=== PATIENT | female | born 1970 | race Caucasian/White ===

== ENCOUNTER → 2018-07-03 | Outpatient (CLI) | payer OTHER ==
[~2018-07-03] MED LIST: CLON0.5T13 PO; DOCU100C37 PO; DULO30CA48 PO; FLUO10TA PO; HOLD METFORMIN - RECEIVED CONTRAST 20 ML VIAL IV SCH; HYDR-34 PO; IBUP-1773 PO; IOHEXOL 350 MG/ML 150 ML (OMNIPAQUE 350) VIAL IV ONE; LORA10TA7 PO; METF-397 PO
[2018-07-03 10:28] LABS: BASOPHILS % (AUTO) 0 % (0-10); EOSINOPHILS # (AUTO) 0.1 10^3/uL (0.0-0.3); EOSINOPHILS % (AUTO) 1 % (0-10); HEMATOCRIT 42 % (35-52); HEMOGLOBIN 14.5 G/DL (11.5-16.0); LYMPHOCYTES # (AUTO) 1.4 X 10^3 (1.0-4.0); LYMPHOCYTES % (AUTO) 15 % (12-44); MEAN CORPUSCULAR HEMOGLOBIN 30 PG (25-34); MEAN CORPUSCULAR HGB CONC 35 G/DL (32-36); MEAN CORPUSCULAR VOLUME 86 FL (80-99); MEAN PLATELET VOLUME 11.3 FL (7.4-10.4); MONOCYTES # (AUTO) 0.5 X 10^3 (0.0-1.0); MONOCYTES % (AUTO) 5 % (0-12); NEUTROPHILS # (AUTO) 7.3 X 10^3 (1.8-7.8); NEUTROPHILS % (AUTO) 79 % (42-75); PLATELET COUNT 225 10^3/uL (130-400); RED CELL DISTRIBUTION WIDTH 13.8 % (10.0-14.5); WHITE BLOOD COUNT 9.3 10^3/uL (4.3-11.0)
[2018-07-03 10:43] LABS: BUN/CREATININE RATIO 19; CREATININE SERUM 0.78 MG/DL (0.60-1.30); GFR ESTIMATED > 60
[2018-07-03 11:42] LABS: ABG OXYGEN SATURATION 98 % (94-100); ABG PCO2 38 MMHG (35-45); ABG PH 7.42 (7.37-7.43); ABG PO2 81 MMHG (79-93); ABG TCO2 25.3 MMOL/L (21.0-31.0)
[2018-07-03 11:44] LABS: ALLENS TEST YES-POS; INSPIRED O2 ROOM AIR; PATIENT TEMP 97.2; VENTILATOR NO
--- NOTE | 2018-07-03 12:01 | Diagnostic Imaging Report ---
PROCEDURE: CT angiography of the chest with contrast. TECHNIQUE: Multiple contiguous axial images were obtained through the chest after uneventful bolus administration of intravenous contrast. 2D reconstructed CTA MIP acquisitions were also performed. Auto Exposure Controls were utilized during the CT exam to meet ALARA standards for radiation dose reduction. INDICATION: Dry cough. FINDINGS: There are no intraluminal pulmonary arterial filling defects. There are no findings of pulmonary arterial embolus. The thoracic aorta is patent and nonaneurysmal. There is no pleural or pericardial effusion. No lung mass or focal consolidation. No infiltrate or adenopathy. No chest effusion and no acute chest wall pathology. The visualized upper abdomen appeared nonacute. IMPRESSION: Negative for PE or other acute abnormalities. Dictated by: Dictated on workstation # [id number]
== END ==
LOC: RAD 10:04
PROVIDERS: ATTEND Nurse Practitioner Family
DX: J45.909 Unspecified asthma, uncomplicated (principal)
CPT/HCPCS: 36415; 36600; 71275; 82565; 82805; 84520; 85025

== ENCOUNTER 2018-07-07 08:10 | Emergency (ER) | payer OTHER ==
[~2018-07-07] VITALS: Ht 162.6 cm; Wt 97.5 kg
[~2018-07-07 08:10] MED LIST changes: -HOLD METFORMIN - RECEIVED CONTRAST 20 ML VIAL IV SCH; -IOHEXOL 350 MG/ML 150 ML (OMNIPAQUE 350) VIAL IV ONE
[2018-07-07] MEDS ORDERED: methylPREDNISolone 125 MG (Solu-MEDROL) VIAL IVP ONE (08:15)
[2018-07-07] MEDS ORDERED: RT-ALBUTEROL/IPRATROPIUM 3 ML (DUONEB) VIAL INH ONE (08:15)
[2018-07-07] MEDS ORDERED: MONT10TA24 PO (08:30)
[2018-07-07] MEDS ORDERED: CETI10TA17 PO (08:30)
[2018-07-07] MEDS ORDERED: FLUT16SP22 NS (08:30)
[2018-07-07] MEDS ORDERED: FLUT1BLS INH (08:30)
[2018-07-07] MEDS ORDERED: PRD10T (08:30)
--- NOTE | 2018-07-07 08:37 | ED Respiratory ---
General Chief Complaint: Cough/Cold/Flu Symptoms Stated Complaint: COUGH;SOA;WEAKNESS Source: patient Exam Limitations: no limitations History of Present Illness Date Seen by Provider: Jul 07, 2018 Time Seen by Provider: 08:33 Initial Comments This 47-year-old white female presents with persistent cough, shortness of breath, and weakness. The patient saw her operational intelligence analyst, Dr. Bowling, on Tuesday and was placed on tapering dose of steroids without improvement. The patient had a CT which revealed demonstrated evidence of PE. Patient has had long-standing problems with this persistent cough. Her response to conventional therapy has been somewhat marginal. The patient denies associated fever or chills, nausea vomiting or diarrhea, flank pain or dysuria, hemoptysis, pressure-type chest pain, or diaphoresis. Allergies and Home Medications Allergies Coded Allergies: No Known Drug Allergies (Unverified , 08/11/15) Home Medications Ibuprofen 600 Mg Tablet, 600 MG PO Q6H PRN for PAIN Prescribed by: TRUDY GERARDO on 08/20/15 0857 Loratadine 10 Mg Tablet, 10 MG PO DAILY, (Reported) Patient Home Medication List Home Medication List Reviewed: Yes Review of Systems Review of Systems Constitutional: No chills, No fever EENTM: No hearing loss, No vision loss Respiratory: see HPI, cough, dyspnea on exertion, short of breath Cardiovascular: No chest pain, No palpitations Gastrointestinal: No abdominal pain, No diarrhea, No nausea, No vomiting Genitourinary: No dysuria, No frequency Musculoskeletal: No back pain Skin: No rash Psychiatric/Neurological: No Symptoms Reported Hematologic/Lymphatic: No Symptoms Reported Immunological/Allergic: no symptoms reported Past Qaqeojt-Qgxnbj-Swoguq Hx Past Med/Social Hx: Reviewed Nursing Past Med/Soc Hx Patient Social History Alcohol Use: Denies Use Recreational Drug Use: No Smoking Status: Never a Smoker Recent Foreign Travel: No Contact w/Someone Who Travel: No Past Medical History Surgeries: Yes (c/s x2, ) Respiratory: No Cardiac: No Neurological: No Reproductive Disorders: Yes (menorrhagia) Gastrointestinal: No Musculoskeletal: Yes (leg pain) Endocrine: No Cancer: No Psychosocial: Yes Anxiety, Depression Integumentary: No Blood Disorders: No (anemia at times) Family Medical History Cardiovascular disease grandparents Diabetes mellitus 19 FATHER grandparents FH: cancer 19 MOTHER (eye then went to liver) grandparents (liver, lung) Hypertension grandparents Myocardial infarction grandparents Psychosocial problem G8 SISTER Physical Exam Vital Signs - First Documented 07/07/18 08:12 Temp 98.9 Pulse 88 Resp 20 B/P (MAP) 137/91 (106) Pulse Ox 99 O2 Delivery Room Air Capillary Refill : Height: 5'4.00" Weight: 204lbs. 0.0oz. 92.612585dp; 35.0 BMI Method: General Appearance: WD/WN, mild distress Eyes: Bilateral Eye Normal Inspection Neck: full range of motion, supple, normal inspection Respiratory: wheezing (worse in the upper lobes.) Cardiovascular: regular rate, rhythm, no murmur Gastrointestinal: normal bowel sounds, non tender, soft Extremities: normal range of motion, normal inspection Neurologic/Psychiatric: no motor/sensory deficits, alert, normal mood/affect Skin: normal color, warm/dry Progress/Results/Core Measures Suspected Sepsis SIRS Temperature: Pulse: Respiratory Rate: Laboratory Tests 07/07/18 08:45: White Blood Count 10.1 Blood Pressure / Mean: Laboratory Tests 07/07/18 08:45: Platelet Count 211 Results/Orders Lab Results Laboratory Tests Test 07/07/18 08:45 Range/Units White Blood Count 10.1 4.3-11.0 10^3/uL Red Blood Count 4.86 4.35-5.85 10^6/uL Hemoglobin 14.4 11.5-16.0 G/DL Hematocrit 42 35-52 % Mean Corpuscular Volume 87 80-99 FL Mean Corpuscular Hemoglobin 30 25-34 PG Mean Corpuscular Hemoglobin Concent 34 32-36 G/DL Red Cell Distribution Width 13.7 10.0-14.5 % Platelet Count 211 130-400 10^3/uL Mean Platelet Volume 11.1 H 7.4-10.4 FL Neutrophils (%) (Auto) 85 H 42-75 % Lymphocytes (%) (Auto) 9 L 12-44 % Monocytes (%) (Auto) 6 0-12 % Eosinophils (%) (Auto) 1 0-10 % Basophils (%) (Auto) 0 0-10 % Neutrophils # (Auto) 8.6 H 1.8-7.8 X 10^3 Lymphocytes # (Auto) 0.9 L 1.0-4.0 X 10^3 Monocytes # (Auto) 0.6 0.0-1.0 X 10^3 Eosinophils # (Auto) 0.1 0.0-0.3 10^3/uL Basophils # (Auto) 0.0 0.0-0.1 10^3/uL My Orders Orders - ASHISH ARSHAD MD Albuterol/Ipra Inhalation Soln (Duoneb I (07/07/18 08:15) Methylprednisolone Sod Succ (Solu-Medrol (07/07/18 08:15) Svn Small Volume Nebulizer (07/07/18 08:15) Cbc With Automated Diff (07/07/18 08:16) Chest 1 View, Ap/Pa Only (07/07/18 08:16) Promethazine/ Codeine Syrup (Phenergan W (07/07/18 09:15) Medications Given in ED Current Medications Medications Dose Ordered Sig/Chio Route Start Time Stop Time Status Last Admin Dose Admin Albuterol/ Ipratropium 3 ml ONCE ONCE INH 07/07/18 08:15 07/07/18 08:16 DC 07/07/18 08:24 3 ML Methylprednisolone Sodium Succinate 125 mg ONCE ONCE IVP 07/07/18 08:15 07/07/18 08:16 DC 07/07/18 08:58 125 MG Promethazine HCl/ Codeine 5 ml ONCE ONCE PO 07/07/18 09:15 07/07/18 09:16 DC 07/07/18 09:13 5 ML Vital Signs/I&O 07/07/18 07/07/18 08:12 08:24 Temp 98.9 Pulse 88 Resp 20 B/P (MAP) 137/91 (106) Pulse Ox 99 97 O2 Delivery Room Air Room Air Capillary Refill : Progress Note : Time: 10:47 Progress Note The patient's workup demonstrated unremarkable white count and a chest x-ray that was essentially clear other than increased perihilar markings (asthma). Patient was marginally improved with DuoNeb treatment and 125 mg Solu-Medrol IV. I gave the patient Phenergan with codeine with minimal improvement in her cough. After the arrived I sat and visited with the patient and her about treatment options. Keeping in the hospital with consequent pulmonary toilet is certainly an option. The patient however elected to try increasing her steroids again over the weekend and employing Tussionex every 12 hours to help suppress the cough. I the patient return tomorrow if she was not significantly improved. I should follow-up with Dr. Bowling on Tuesday for further evaluation and care. Departure Impression Primary Impression: Asthma attack Qualified Codes: J45.51 - Severe persistent asthma with (acute) exacerbation Disposition: HOME, SELF-CARE Condition: Improved Departure-Patient Inst. Decision time for Depature: 10:53 [facility] Primary Care Physician ALEJANDRO DIAS (Family) Primary Care Physician INÉS BOWLING DO Patient Instructions: Asthma, Adult (DC) Add. Discharge Instructions: Tussionex and prednisone as prescribed. Close follow-up with Dr. Bowling on Tuesday. Return if any problems or questions. All discharge instructions reviewed with patient and/or family. Voiced understanding. ASHISH ARSHAD MD Jul 07, 2018 08:37
[2018-07-07 09:00] LABS: BASOPHILS % (AUTO) 0 % (0-10); EOSINOPHILS # (AUTO) 0.1 10^3/uL (0.0-0.3); EOSINOPHILS % (AUTO) 1 % (0-10); HEMATOCRIT 42 % (35-52); HEMOGLOBIN 14.4 G/DL (11.5-16.0); LYMPHOCYTES # (AUTO) 0.9 X 10^3 (1.0-4.0); LYMPHOCYTES % (AUTO) 9 % (12-44); MEAN CORPUSCULAR HEMOGLOBIN 30 PG (25-34); MEAN CORPUSCULAR HGB CONC 34 G/DL (32-36); MEAN CORPUSCULAR VOLUME 87 FL (80-99); MEAN PLATELET VOLUME 11.1 FL (7.4-10.4); MONOCYTES # (AUTO) 0.6 X 10^3 (0.0-1.0); MONOCYTES % (AUTO) 6 % (0-12); NEUTROPHILS # (AUTO) 8.6 X 10^3 (1.8-7.8); NEUTROPHILS % (AUTO) 85 % (42-75); PLATELET COUNT 211 10^3/uL (130-400); RED CELL DISTRIBUTION WIDTH 13.7 % (10.0-14.5); WHITE BLOOD COUNT 10.1 10^3/uL (4.3-11.0)
[2018-07-07] MEDS ORDERED: PROMETHAZINE/ CODEINE SYRUP 5 ML UDC PO ONE (09:15)
--- NOTE | 2018-07-07 10:49 | Diagnostic Imaging Report ---
INDICATION: Cough No prior examinations are available for comparison. FINDINGS: The heart size, mediastinal configuration, and pulmonary vascularity are within normal limits. There is no pleural effusion, pneumothorax, or pneumonia. The osseous structures are unremarkable. IMPRESSION: No acute cardiopulmonary abnormality. Dictated by: Dictated on workstation # [id number]
[2018-07-07 10:57] VITALS: BP 122/75
--- OUTSIDE RECORDS SUMMARY | 2018-07-07 13:34 | XMS REPORT ---
Author Author CHRIS EVANS [facility] Address [address] [place] [address] Care Team Providers Care Software Specialist Name Role Phone CHRIS EVANS Unavailable PROBLEMS Type Condition ICD9-CM Code EGT95-NA Code Onset Dates Condition Status SNOMED Code Problem Emotional lability R45.86 Active 22566048 Problem History of abnormal cervical Pap smear Z87.898 Active 370219202 Problem Breast cancer screening Z12.31 Active 147688327 Problem Shortness of breath R06.02 Active 400368731 Problem Iron deficiency anemia due to chronic blood loss D50.0 Active 36839653 Problem History of asthma Z87.09 Active 387994040 Problem Dysthymia F34.1 Active 48443091 Problem Hyperglycemia R73.9 Active 31799561 Problem Venous insufficiency I87.2 Active 81872199 Problem Colon cancer screening Z12.11 Active 114933389 Problem Obesity (BMI 35.0-39.9 without comorbidity) E66.9 Active 362909079 Problem Menorrhagia with regular cycle N92.0 Active 990798275 Problem Anxiety disorder, unspecified F41.9 Active 791630761 Problem B union_ , 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 189479380 Problem Hyperthyroidism E05.90 Active 31172001 Problem Sleep disturbance G47.9 Active 89580339 Problem Anxiety F41.9 Active 36524348 Problem Depression with anxiety F41.8 Active 136362546 Problem Lumbago with sciatica, left side M54.42 Active 511946525 Problem Persistent mood [affective] disorder, unspecified F34.9 Active 70177533 Problem High risk medication use Z79.899 Active 389133449 Problem Other chronic pain G89.29 Active 62257370 Problem Anxiety associated with depression F41.8 Active 149551053 ALLERGIES No Information ENCOUNTERS Encounter Location Date Diagnosis [facility] [address] [facility] [id number] [id number] Dec, History of asthma Z87.09 and Shortness of breath R06.02 [facility] [address] [id number][place] [id number] Oct, History of asthma Z87.09 and Bronchitis J40 [address] [id number], [place] [id number] July, Bronchiolitis J21.9 ; Acute non-recurrent maxillary sinusitis J01.00 and Cough R05 [facility] [address] [id number] [id number] July, Bronchiolitis J21.9 [facility] [address] AVCullman [facility] [id number] [place] [id number] Apr, Influenza J11.1 [facility] [place]65100[place] [id number] Jan, [facility]65100[place] [id number] Jan, Venous insufficiency I87.2 and Obesity (BMI 35.0-39.9 without comorbidity) E66.9 [facility] [id number] [id number] Dec, High risk medication use Z79.899 ; Hyperglycemia R73.9 ; Hyperthyroidism E05.90 ; Iron deficiency anemia due to chronic blood loss D50.0 and Menorrhagia with regular cycle N92.0 [facility] [id number][place] [id number] Nov, [facility] [id number][place] [id number] Nov, [facility] [id number] [place] [id number] Nov, High risk medication use Z79.899 ; Dysthymia F34.1 and Venous insufficiency I87.2 [facility] [employer] [place] [address] [id number] [place] [id number] Sep, [facility] [address] [id number], [place] [id number] Sep, History of abnormal cervical Pap smear Z87.898 ; Breast cancer screening Z12.31 and Colon cancer screening Z12.11 zz[facility] [place] [id number] [facility] [id number] [place] [id number] Jun, [facility] [address] [id number], [place] [id number] Apr, [facility] [address] [id number], [place] [id number] Apr, High risk medication use Z79.899 ; Dysthymia F34.1 and Hyperglycemia R73.[address] [facility] [address] [id number], [place] [id number] Feb, [facility] [address] [id number], [place] [id number] Feb, Anxiety associated with depression F41.8 [facility] [address] [id number], [place] [id number] Feb, [facility] [address] [id number], [place] [id number] Jan, [facility] [address] [id number], [place] [id number] Jan, [facility] [address] [id number], [place] [id number] Jan, High risk medication use Z79.899 and Anxiety associated with depression F41.8 [facility] [address] [id number], [place] [id number] Jan, Anxiety F41.[address] [facility] [address] [id number], [place] [id number] Dec, Emotional lability R45.[address] [facility] [address] [id number], [place] [id number] Dec, Anxiety F41.[address] [facility] [address] [id number] [place] [id number] Dec, [facility] [address] [id number] [place] [id number] Dec, Anxiety associated with depression F41.[address] [facility] [address] [id number] [place] [id number] Dec, [facility] [address] [id number], [place] [id number] Dec, Persistent mood [affective] disorder, unspecified F34.[address] [facility] [address] [id number] [place] [id number] Nov, Hyperthyroidism E05.[address] [facility] [address] [id number], [place] [id number] Nov, Hyperthyroidism E05.[address] [facility] [address] [id number], [place] [id number] Nov, [facility] [address] [id number], [place] [address] Nov, Hyperglycemia R73.9 ; Lumbago with sciatica, left side M54.42 ; Other chronic pain G89.29 and B union_ , 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 [facility] [address] [id number], [place] [id number] Nov, Depression with anxiety F41.8 [facility] [address] [id number], [place] [id number] Oct, High risk medication use Z79.899 ; Dysthymia F34.1 and Venous insufficiency I87.[address] [facility] [address] [id number], [place] [id number] Oct, Anxiety F41.9 [facility] [address] [id number], [place] [id number] Oct, [facility] [address] [address] [id number], [place] [id number] Sep, Iron deficiency anemia due to chronic blood loss D50.0 [facility] [place] [address] [facility] [address] [id number], [place] [id number] Sep, High risk medication use Z79.899 and Sleep disturbance G47.9 [facility] [place] [address] [facility] [address] [id number], [place] [id number] Sep, Anxiety disorder, unspecified F41.9 [facility] [address] [id number], [place] [id number] Aug, [facility] [address] [id number], [place] [id number] Aug, Iron deficiency anemia due to chronic blood loss D50.0 and Hyperthyroidism E05.90 [facility] [place] [address] [facility] [address] [id number], [place] [id number] Aug, Hyperthyroidism E05.90 [facility] [place] [address] [facility] [address] [id number], [place] [id number] Aug, Hyperglycemia R73.9 [facility] [place] [address] [place] [address] AVE [id number], [place] [id number] Aug, High risk medication use Z79.899 ; Dysthymia F34.1 and Hyperglycemia R73.9 [facility] [address]00565100[place] [id number] Jun, [facility] [place] [id number] [place] [id number] May, Menorrhagia with regular cycle N92.0 ; Dysmenorrhea N94.6 and Tendonitis M77.9 [facility] [address] [place] [address] [id number] May, Blood glucose elevated R73.9 [facility] [place] [address] [id number] [place] [id number] May, [facility] [address] [place] [address] [id number] May, Menorrhagia with regular cycle N92.0 and Dysmenorrhea N94.6 [facility] [id number] [place] [id number] 25 Apr, 2015 Painful menstrual periods N94.6 ; Menorrhagia with regular cycle N92.0 and Depression with anxiety F41.8 [facility] [id number] [place]ACH[place] [id number] Apr, [place] [id number] [place] [id number] Feb, Plantar wart B07.0 [address] [place] [address] [id number] Feb, [place] [id number] [place] [address] [phone] Feb, Blood glucose elevated R73.9 and Lumbar radiculopathy M54.[address] [place] [address] [id number] Feb, Low grade squamous intraepithelial lesion (LGSIL) on Papanicolaou smear of cervix R87.[address] [place] [address] [id number] Feb, [facility] [place] [address] [facility] [address] [id number], [place] [id number] Jan, [facility] [id number] [place] [id number] Jan, [address] [place] [address] [id number] Jan, [place] [id number] [place] [id number] Jan, Routine gynecological examination V72.31 ; Encounter for Papanicolaou smear for cervical cancer screening Z12.4 and Breast cancer screening Z12.39 [address] [place] [address] [id number] Jan, Depression with anxiety F41.8 [address] [place] [address] [id number] Dec, Follow up V67.9 [place] [id number] [id number] Oct, Follow up V67.9 [facility] [address] [facility] [id number] [place] [id number] Sep, Major depression, recurrent 296.30 [facility] [address] [facility] [id number] [place] [address] Jun, [facility] [address]00565100[place] [address] Jun, [facility] [id number] [place] [id number] Feb, [facility] [address] [place] [address] Feb, [facility] [id number] [place]ACH[place] [id number] Jan, [facility] [address]00565100[place] [address] Jan, [facility] [id number] [place]ACH[place] [id number] Dec, [facility] [address]65100[place] [address] Dec, [facility] [id number] [place] [id number] Dec, [facility] [address] [place] [id number] [address] Dec, [facility] [id number] [place]ACH[place] [id number] Nov, [facility] [address] [place] [id number] [address] Nov, [facility] [address] [facility] [id number] [place] [id number] Nov, [facility] [address] [place] [id number] [address] Nov, [facility] [address] [place] [id number] [place] [id number] Nov, [facility] [address] [facility] [id number] [place] [address] Nov, [facility] [address] [facility] [id number] [place] [address] Nov, [facility] [address] [facility] [id number] [place] [address] Nov, [facility] [address] [facility] [id number] [place] [id number] Nov, [facility] [address] [facility] [id number] [place] [address] Nov, IMMUNIZATIONS No Known Immunizations SOCIAL HISTORY Never Assessed REASON FOR VISIT PLAN OF CARE VITAL SIGNS MEDICATIONS Unknown Medications RESULTS No Results PROCEDURES No Known procedures INSTRUCTIONS MEDICATIONS ADMINISTERED No Known Medications MEDICAL (GENERAL) HISTORY Type Description Date Medical History depression-electroshock therapy at the [facility] in late Medical History Anxiety Medical History left knee pain Medical History hyperglycemia Medical History DUB Surgical History tonsillectomy and adenoidectomy Surgical History section Surgical History tubal ligation 8 years ago Surgical History partial hysterectomy/ still has ovaries 08/19/15 Hospitalization History psych stays
--- OUTSIDE RECORDS SUMMARY | 2018-07-07 13:34 | XMS REPORT ---
Author Author CHRIS EVANS [facility] Address [address] [place] [address] Care Team Providers Care Business Office Technology Instructor Name Role Phone CHRIS EVANS Unavailable PROBLEMS Type Condition ICD9-CM Code DUN71-NN Code Onset Dates Condition Status SNOMED Code Problem Persistent mood [affective] disorder, unspecified F34.9 Active 41189629 Problem Emotional lability R45.86 Active 80626372 Problem Anxiety associated with depression F41.8 Active 244416121 Problem Obesity (BMI 35.0-39.9 without comorbidity) E66.9 Active 312911424 Problem Dysthymia F34.1 Active 62745084 Problem Menorrhagia with regular cycle N92.0 Active 410477776 Problem High risk medication use Z79.899 Active 946986480 Problem Colon cancer screening Z12.11 Active 112235615 Problem Breast cancer screening Z12.31 Active 934118423 Problem Venous insufficiency I87.2 Active 75887634 Problem History of abnormal cervical Pap smear Z87.898 Active 448045261 Problem Hyperthyroidism E05.90 Active 16831465 Problem Sleep disturbance G47.9 Active 86057143 Problem Hyperglycemia R73.9 Active 94802122 Problem Iron deficiency anemia due to chronic blood loss D50.0 Active 89301008 Problem Lumbago with sciatica, left side M54.42 Active 311495465 Problem Other chronic pain G89.29 Active 86562373 Problem Anxiety disorder, unspecified F41.9 Active 476417923 Problem Anxiety F41.9 Active 53758941 Problem B union_ , 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 [address] [id number] [place] [id number] Oct, History of asthma Z87.[address] [facility] [address] [place] [address] AV [id number] [place] [id number] July, Bronchiolitis J21.9 ; Acute non-recurrent maxillary sinusitis J01.00 and Cough R05 [facility] [address] [place] [address] AV [id number] [place] [id number] July, Bronchiolitis J21.9 [facility] MCKEONCHARLES[address] AV [id number] [place] [id number] Apr, Influenza J11.1 [facility] [address] [place] [address] AV [id number] [place] [id number] Jan, [facility] [address] [place], [place] [id number] [place] [id number] Jan, Venous insufficiency I87.2 and Obesity (BMI 35.0-39.9 without comorbidity) E66.9 [facility] MCKEONCHARLES[address] [id number] [place] [id number] Dec, High risk medication use Z79.899 ; Hyperglycemia R73.9 ; Hyperthyroidism E05.90 ; Iron deficiency anemia due to chronic blood loss D50.0 and Menorrhagia with regular cycle N92.0 [facility] MCKEONCHARLES[address] [id number] [place] [id number] Nov, [facility] [address] [place] [address] [id number] [place] [id number] Nov, [facility]ERSpeedshapeCHARLES[address] [id number] [place] [id number] Nov, High risk medication use Z79.899 ; Dysthymia F34.1 and Venous insufficiency I87.2 [facility] [address] AV [id number] [place] [id number] Sep, [facility] CHAR[facility] AV [id number] [place] [id number] Sep, History of abnormal cervical Pap smear Z87.898 ; Breast cancer screening Z12.31 and Colon cancer screening Z12.11 [place] [address] [facility] [id number] [place] [id number] Jun, [facility] [address] [id number] [place] [id number] Apr, [facility] [address] [id number] [place] [address] Apr, High risk medication use Z79.899 ; Dysthymia F34.1 and Hyperglycemia R73.[address] [facility] [address] [id number] [place] [id number] Feb, [facility] [address] [id number] [place] [id number] Feb, Anxiety associated with depression F41.[address] [facility] [address] [id number] [place] [id number] Feb, [facility] [address] [id number] [place] [id number] Jan, [facility] [address] [id number] [place] [id number] Jan, [facility] [address] [id number] [place] [id number] Jan, High risk medication use Z79.899 and Anxiety associated with depression F41.[address] [facility] [address] [id number] [place] [id number] Jan, Anxiety F41.[address] [facility] [address] [id number] [place] [id number] Dec, Emotional lability R45.[address] [facility] [address] [id number] [place] [id number] Dec, Anxiety F41.[address] [facility] [address] [id number] [place] [id number] Dec, [facility] [address] [id number] [place] [id number] Dec, Anxiety associated with depression F41.[address] [facility] [address] [id number] [place] [id number] Dec, [facility] [address] [id number] [place] [id number] Dec, Persistent mood [affective] disorder, unspecified F34.[address] [facility] [address] [id number] [place] [id number] Nov, Hyperthyroidism E05.90 [facility] [address] [id number] [place] [id number] Nov, Hyperthyroidism E05.90 [facility] [address] [id number] [place] [id number] Nov, [facility] [address] [id number] [place] [id number] Nov, Hyperglycemia R73.9 ; Lumbago with sciatica, left side M54.42 ; Other chronic pain G89.29 and B union_ , 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 [facility] [address] [id number] [place] [address] Nov, Depression with anxiety F41.8 [facility] [address] [id number] [place] [id number] Oct, High risk medication use Z79.899 ; Dysthymia F34.1 and Venous insufficiency I87.2 [facility] [address] [id number] [place] [id number] Oct, Anxiety F41.9 [facility] [address] [id number] [place] [id number] Oct, [facility] [address] [id number] [place] [id number] Sep, Iron deficiency anemia due to chronic blood loss D50.0 [facility] [address] [id number] [place] [id number] Sep, High risk medication use Z79.899 and Sleep disturbance G47.[address] [facility] [address] [id number] [place] [id number] Sep, Anxiety disorder, unspecified F41.[address] [facility] [address] [id number] [place] [id number] Aug, [facility] [address] [id number] [place] [address] Aug, Iron deficiency anemia due to chronic blood loss D50.0 and Hyperthyroidism E05.[address] [facility] [address] [id number] [place] [id number] Aug, Hyperthyroidism E05.[address] [facility] [address] [id number] [place] [id number] Aug, Hyperglycemia R73.9 [facility] [place] [address] [id number] [place] [id number] Aug, High risk medication use Z79.899 ; Dysthymia F34.1 and Hyperglycemia R73.9 [facility] [place] [id number] [id number] Jun, [facility] [place] [id number] [place] [id number] May, Menorrhagia with regular cycle N92.0 ; Dysmenorrhea N94.6 and Tendonitis M77.9 [facility] [place] [id number], [place] [id number] May, Blood glucose elevated R73.9 [facility] [place] [id number], [place] [id number] May, [facility] [place] [address] [id number], [place] [id number] May, Menorrhagia with regular cycle N92.0 and Dysmenorrhea N94.6 [facility] [place] [id number] [place] [address] [id number] Apr, Painful menstrual periods N94.6 ; Menorrhagia with regular cycle N92.0 and Depression with anxiety F41.8 [facility] [address]00565100[place] [id number] Apr, [address] [place] [id number] Feb, Plantar wart B07.0 [place] [address] [id number] [place] [address] [id number] Feb, [address] [place] [address] [id number] Feb, Blood glucose elevated R73.9 and Lumbar radiculopathy M54.[address] [place] [address] [id number] Feb, Low grade squamous intraepithelial lesion (LGSIL) on Papanicolaou smear of cervix R87.[address] [place] [address] [id number] Feb, [facility] [address] [id number] [place] [id number] Jan, [facility] [id number] [place] [id number] Jan, [address] [place] [address] [id number] Jan, [place] [id number] [place] [address] [id number] Jan, Routine gynecological examination V72.31 ; Encounter for Papanicolaou smear for cervical cancer screening Z12.4 and Breast cancer screening Z12.39 [address] [place] [address] [id number] Jan, Depression with anxiety F41.8 [address] [place] [address] [id number] Dec, Follow up V67.9 [address] [place] [address] [id number] Oct, Follow up V67.9 [address] [place] [address] [id number] Sep, Major depression, recurrent 296.30 [facility] [address] [place] [id number] [place] [address] Jun, [facility] [address] [id number], [place] [address] Jun, [facility] [address] [facility] [id number], [place] [id number] Feb, [facility] [address] [place] [id number], [place] [address] Feb, [facility] [address] [id number], [place] [id number] Jan, [facility] [address] [facility] [id number][place] [address] Jan, [facility] [address] [facility] [id number] [place] [id number] Dec, [facility] [address]00565100[place], [place] [address] Dec, [facility] [address] [place] [id number], [place] [id number] Dec, [facility] [address] [facility] [id number], [place] [address] Dec, [facility] [address] [place] [id number], [place] [id number] Nov, [facility] [address] [place] [id number], [place] [address] 30 Nov, 2013 [facility] [address] [facility] [id number], [place] [id number] Nov, [facility] [address] [facility] [place] [id number], [place] [address] 24 Nov, 2013 [facility] [address] [facility] [id number], [place] [id number] Nov, [facility] [address] [facility] [place] [place] [id number], [place] [address] 17 Nov, 2013 [facility] [address] [facility] [place] [id number], [place] [address] 16 Nov, 2013 [facility] [address] [facility] [id number] [place] [address] Nov, [facility] [address] [facility] [id number] [place] [id number] Nov, [facility] [address] [facility] [id number] [place] [address] Nov, IMMUNIZATIONS Vaccine Route Administration Date Status SOLUMEDROL (UP TO 125 MG) IM Intramuscular Nov 25, 2017 Administered SOCIAL HISTORY Never Assessed REASON FOR VISIT Cough, SOB for three days. ZULEMA KANG PLAN OF CARE Activity Details Follow Up prn Reason: Future/Pending Procedure NEBULIZER TREATMENT VITAL SIGNS Height 64.5 in 2017-11-25 Weight 210.6 lbs 2017-11-25 Temperature 97.8 degrees Fahrenheit 2017-11-25 Heart Rate 82 bpm 2017-11-25 Respiratory Rate 2017-11-25 Oximetry 99 % 2017-11-25 BMI 35.59 kg/m2 2017-11-25 Blood pressure systolic 122 mmHg 2017-11-25 Blood pressure diastolic 74 mmHg 2017-11-25 MEDICATIONS Medication Instructions Dosage Frequency Start Date End Date Duration Status ProAir HFA 108 (90 Base) MCG/ACT Inhalation 4 times a day 2 puffs 6h Active Flonase 50 MCG/ACT Nasally Once a day (twice per day for first 2 weeks) 1 spray in each nostril July, 30 day(s) Active Cetirizine HCl 10 mg Orally Once a day 1 tablet 24h 90 days Active PredniSONE 20 mg Orally Once a day 2 tablet 24h Oct, 5 Nov, 2017 05 days Active Flovent HFA 110 MCG/ACT Inhalation Twice a day 1 puff 12h Oct, Active RESULTS No Results PROCEDURES Procedure Date Ordered Result Body Site SOLUMEDROL (UP TO 125 MG) Nov 25, 2017 THER/PROPH/DIAG INJ, SC/IM Nov 25, 2017 NEB/MDI RX INITIAL Nov 25, 2017 INSTRUCTIONS MEDICATIONS ADMINISTERED No Known Medications MEDICAL (GENERAL) HISTORY Type Description Date Medical History depression-electroshock therapy at the [facility] in late Medical History Anxiety Medical History left knee pain Medical History hyperglycemia Medical History DUB Surgical History tonsillectomy and adenoidectomy Surgical History section 1993,2005 Surgical History tubal ligation 8 years ago Surgical History partial hysterectomy/ still has ovaries 08/19/15 Hospitalization History psych stays
--- OUTSIDE RECORDS SUMMARY | 2018-07-07 13:34 | XMS REPORT ---
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 074254504 Problem Anxiety disorder, unspecified F41.9 Active 740466309 Problem Other chronic pain G89.29 Active 37451385 Problem Lumbago with sciatica, left side M54.42 Active 644759264 Problem Depression with anxiety F41.8 Active 132001530 Problem High risk medication use Z79.899 Active 326618503 Problem Anxiety F41.9 Active 89766582 Problem Emotional lability R45.86 Active 57964343 Problem Breast cancer screening Z12.31 Active 354853817 Problem History of abnormal cervical Pap smear Z87.898 Active 140878181 Problem History of asthma Z87.09 Active 568620277 Problem Anxiety associated with depression F41.8 Active 815886327 Problem Dysthymia F34.1 Active 10752183 Problem Shortness of breath R06.02 Active 560286703 Problem Persistent mood [affective] disorder, unspecified F34.9 Active 29128058 Problem Hyperglycemia R73.9 Active 45325939 Problem Iron deficiency anemia due to chronic blood loss D50.0 Active 00369600 Problem Colon cancer screening Z12.11 Active 265967516 Problem Venous insufficiency I87.2 Active 16033648 Problem Menorrhagia with regular cycle N92.0 Active 400810675 Problem Obesity (BMI 35.0-39.9 without comorbidity) E66.9 Active 325861562 ALLERGIES No Information ENCOUNTERS Encounter Location Date Diagnosis [facility] [address] [id number] [place] [id number] Jun, [facility] [address] [id number][place] [id number] May, Shortness of breath R06.02 [facility] [address] [facility] [id number][place] [address] May, History of asthma Z87.09 and Shortness of breath R06.02 [facility] [address] [place] [address] AVE [id number], [place] [address]34 Dec, History of asthma Z87.09 and Shortness of breath R06.[address] [id number], [place] [id number] Oct, History of asthma Z87.09 and Bronchitis J40 [address] [place] [place] [id number] [place] [id number] July, Bronchiolitis J21.9 ; Acute non-recurrent maxillary sinusitis J01.00 and Cough R05 [address] [id number], [place] [id number] July, Bronchiolitis J21.[address] [id number], [place] [id number] Apr, Influenza J11.[address] [id number][place] [id number] Jan, [facility] [address] [id number], [place] [id number] Jan, Venous insufficiency I87.2 and Obesity (BMI 35.0-39.9 without comorbidity) E66.[address] [id number], [place] [id number] Dec, High risk medication use Z79.899 ; Hyperglycemia R73.9 ; Hyperthyroidism E05.90 ; Iron deficiency anemia due to chronic blood loss D50.0 and Menorrhagia with regular cycle N92.0 [facility] [address] [id number][place] [id number] Nov, [facility] [id number] [place] [id number] Nov, [facility] [address] [id number] [place] [id number] Nov, High risk medication use Z79.899 ; Dysthymia F34.1 and Venous insufficiency I87.[address] [facility] [address] [id number] [place] [id number] Sep, [facility] [address] [id number], [place] [address] Sep, History of abnormal cervical Pap smear Z87.898 ; Breast cancer screening Z12.31 and Colon cancer screening Z12.[address] [id number][place] [id number] Jun, [facility] [address] [id number], [place] [id number] Apr, [facility] [address] [id number], [place] [address]63 Apr, High risk medication use Z79.899 ; Dysthymia F34.1 and Hyperglycemia R73.[address] [facility] [address] [id number], [place] [id number] Feb, [facility] [address] [id number], [place] [id number] Feb, Anxiety associated with depression F41.[address] [facility] [address] [id number], [place] [id number] Feb, [facility] [address] [id number], [place] [id number] Jan, [facility] [address] [id number], [place] [id number] Jan, [facility] [address] [address] [id number], [place] [address]375[address] Jan, High risk medication use Z79.899 and Anxiety associated with depression F41.[address] [facility] [address] [id number] [place] [address] Jan, Anxiety F41.9 [facility] [address] [id number] [place] [id number] Dec, Emotional lability R45.[address] [facility] [address] [id number] [place] [id number] Dec, Anxiety F41.[address] [facility] [address] [id number], [place] 759938841 Dec, [facility] [address] [id number] [place] [id number] Dec, Anxiety associated with depression F41.[address] [facility] [address] [id number], [place] [address]74[address]0183 Dec, [facility] [address] [address] [id number], [place] 837114902 Dec, Persistent mood [affective] disorder, unspecified F34.[address] [facility] [address] [id number], [place] 616482631 Nov, Hyperthyroidism E05.90 [facility] [address] [id number], [place] [address]7924 Nov, Hyperthyroidism E05.90 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 [address] [id number], [place] [address]73 Nov, Depression with anxiety F41.8 [facility] [address] [id number], [place] 585636083 Oct, High risk medication use Z79.899 ; Dysthymia F34.1 and Venous insufficiency I87.2 [facility] [address] [id number], [place] 112889892 Oct, Anxiety F41.9 [facility] [address] [id number], [place] [id number] Oct, [facility] [address] [id number], [place] [id number] Sep, Iron deficiency anemia due to chronic blood loss D50.0 [facility] [address] [id number], [place] [id number] Sep, High risk medication use Z79.899 and Sleep disturbance G47.9 [facility] [address] [id number], [place] [id number] Sep, Anxiety disorder, unspecified F41.9 [facility] [address] [facility] [address] [id number], [place] 725783534 Aug, [facility] [address] [id number], [place] 843[address]3263 Aug, Iron deficiency anemia due to chronic blood loss D50.0 and Hyperthyroidism E05.90 [facility] [address] [facility] [address] [id number], [place] [id number] Aug, Hyperthyroidism E05.90 [facility] [address] [facility] [address] [id number], [place] 525387[address] Aug, Hyperglycemia R73.9 [facility] [place] [address] [place] [address] AVE [id number], [place] [id number] Aug, High risk medication use Z79.899 ; Dysthymia F34.1 and Hyperglycemia R73.9 [place] [address] [place] [place] [id number], [place] [id number] Jun, [facility] [address]00565100[place], [place] [address] May, Menorrhagia with regular cycle N92.0 ; Dysmenorrhea N94.6 and Tendonitis M77.9 [facility] [address]00565100[place], [place] [id number] May, Blood glucose elevated R73.9 [address] [place] [address] [id number] May, [place] [id number] [place] [address] [id number] May, Menorrhagia with regular cycle N92.0 and Dysmenorrhea N94.6 [place] [id number] [place] [address] [id number] Apr, Painful menstrual periods N94.6 ; Menorrhagia with regular cycle N92.0 and Depression with anxiety F41.8 [address] [place] [address] [id number] Apr, [place] [id number] [place] [address] [id number] Feb, Plantar wart B07.0 [place] [id number] [place] [address] [id number] Feb, [place] [address] [place] [address] [id number] Feb, Blood glucose elevated R73.9 and Lumbar radiculopathy M54.16 [place] [id number] [place] [address] [id number] Feb, Low grade squamous intraepithelial lesion (LGSIL) on Papanicolaou smear of cervix R87.612 [address]00565100[place], [place] 534[address] Feb, [facility] [address] [id number], [place] [id number] Jan, [facility] [address] [facility] [address] [id number], [place] [id number] Jan, [place] [id number] [place] [address] [id number] Jan, [address]00565100[place], [place] [id number] Jan, Routine gynecological examination V72.31 ; Encounter for Papanicolaou smear for cervical cancer screening Z12.4 and Breast cancer screening Z12.39 [facility] [place] [id number], [place] [id number] Jan, Depression with anxiety F41.8 [facility] [id number] [place] [address] [id number] Dec, Follow up V67.9 [facility] [id number] [place] [address] [id number] Oct, Follow up V67.9 [facility] [id number] [place] [address] [id number] Sep, Major depression, recurrent 296.30 [facility] [id number] [place] [address] Jun, [facility] [id number] [place] [address] Jun, [facility] [id number] [place] [address] [id number] Feb, [facility] [id number] [place] [address] 266184- [address] Feb, [facility] [id number] [place] [address] [id number] Jan, [facility] [id number] [place] [address] 680162- 59[address] Jan, [facility] [id number], [place] [id number] Dec, [facility] [address] [place] [address]- 288[address] Dec, [facility] [id number], [place] [id number] Dec, [facility] [id number] [place] [address]- 5[address] Dec, [facility] [id number], [place] [id number] Nov, [facility] [id number] [place] [address] Nov, [facility] [address] [facility] [id number] [place] [id number] Nov, [facility] [address]00565100[place], [place] [address] Nov, [facility] [address] [facility] [id number], [place] [id number] Nov, [facility] [address]00565100[place], [place] [address] Nov, [facility] [address]00565100[place], [place] [address] Nov, [facility] [address]00565100[place], [place] [address] Nov, [facility] [address] [place] [place] [id number], [place] [id number] Nov, [facility] [address] [place] [address] [id number], [place] [address] Nov, IMMUNIZATIONS No Known Immunizations SOCIAL HISTORY Never Assessed REASON FOR VISIT EMR-[facility] [place] PLAN OF CARE VITAL SIGNS MEDICATIONS Medication Instructions Dosage Frequency Start Date End Date Duration Status Hydrochlorothiazide 12.5 mg 1 capsule by Oral route 1 time per day Nov, Active Promethazine-DM 6.25-15 mg/5 mL 10 Ml by Oral route every 4 hours PRN Feb, Active Lotrimin AF 1 % apply to the affected and surrounding areas of skin by Topical route 2 times per day disp 60g tube Dec, Active Azithromycin 250 mg 2 Tablet by Oral route on day 1 then take 1 daily for 4 days Feb, Active Vitamin D2 50,000 unit take 1 capsule (50,000 unit) by oral route once weekly for 12 weeks Nov, Active Fluoxetine 20 mg 1 capsule by Oral route 1 time per day Nov, Active RESULTS No Results PROCEDURES No Known procedures INSTRUCTIONS MEDICATIONS ADMINISTERED No Known Medications MEDICAL (GENERAL) HISTORY Type Description Date Medical History depression-electroshock therapy at [facility] in late Medical History Anxiety Medical History left knee pain Medical History hyperglycemia Medical History DUB Surgical History tonsillectomy and adenoidectomy Surgical History section 1994,2006 Surgical History tubal ligation 8 years ago Surgical History partial hysterectomy/ still has ovaries 08/19/15 Hospitalization History psych stays
--- OUTSIDE RECORDS SUMMARY | 2018-07-07 13:35 | XMS REPORT ---
Author Author LON LAWRENCE Organization [facility] Address [address] [place] [address] Care Team Providers Care Oracle Distribution Consultant Name Role Phone LON LAWRENCE Unavailable PROBLEMS Type Condition ICD9-CM Code ZME28-UR Code Onset Dates Condition Status SNOMED Code Problem Persistent mood [affective] disorder, unspecified F34.9 Active 91178644 Problem Emotional lability R45.86 Active 43047945 Problem Anxiety associated with depression F41.8 Active 219774993 Problem Obesity (BMI 35.0-39.9 without comorbidity) E66.9 Active 367550580 Problem Dysthymia F34.1 Active 92139636 Problem Menorrhagia with regular cycle N92.0 Active 795131050 Problem High risk medication use Z79.899 Active 331575943 Problem Colon cancer screening Z12.11 Active 579560307 Problem Breast cancer screening Z12.31 Active 903808203 Problem Venous insufficiency I87.2 Active 45984293 Problem History of abnormal cervical Pap smear Z87.898 Active 441101050 Problem Hyperthyroidism E05.90 Active 03597115 Problem Sleep disturbance G47.9 Active 52000811 Problem Hyperglycemia R73.9 Active 09721152 Problem Iron deficiency anemia due to chronic blood loss D50.0 Active 33942965 Problem Lumbago with sciatica, left side M54.42 Active 956580432 Problem Other chronic pain G89.29 Active 22676152 Problem Anxiety disorder, unspecified F41.9 Active 375070530 Problem Anxiety F41.9 Active 17306621 Problem B union_ , 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 345417376 Problem Depression with anxiety F41.8 Active 777789117 ALLERGIES No Known Allergies ENCOUNTERS Encounter Location Date Diagnosis [place] [address] [id number] [place] [id number] July, Bronchiolitis J21.9 ; Acute non-recurrent maxillary sinusitis J01.00 and Cough R05 [facility] [address] [id number][place] [id number] July, Bronchiolitis J21.[address] [facility] [address] [id number], [place] [id number] Apr, Influenza J11.1 [facility] [address] [id number][place] [id number] Jan, [facility] [address] [id number][place] [id number] Jan, Venous insufficiency I87.2 and Obesity (BMI 35.0-39.9 without comorbidity) E66.9 [facility] [address] [address] [id number], [place] [id number] Dec, High risk medication use Z79.899 ; Hyperglycemia R73.9 ; Hyperthyroidism E05.90 ; Iron deficiency anemia due to chronic blood loss D50.0 and Menorrhagia with regular cycle N92.0 [facility] [id number][place] [id number] Nov, [facility] [address] [place] [address] AVE [id number], [place] [id number] Nov, [facility] [address] [place] [address] AVE [id number], [place] [id number] Nov, High risk medication use Z79.899 ; Dysthymia F34.1 and Venous insufficiency I87.[address] [facility] [address] [id number], [place] [id number] Sep, [facility] [address] [place] [address] AVE [id number], [place] [id number] Sep, History of abnormal cervical Pap smear Z87.898 ; Breast cancer screening Z12.31 and Colon cancer screening Z12.[address] [facility] [address] [id number], [place] [id number] Jun, [facility] [address] [id number] [place] [id number] Apr, [facility] [address] [id number] [place] [id number] Apr, High risk medication use Z79.899 ; Dysthymia F34.1 and Hyperglycemia R73.[address] [facility] [address] [id number] [place] [id number] Feb, [facility] [address] [id number] [place] [id number] Feb, Anxiety associated with depression F41.[address] [facility] [address] [id number] [place] [id number] Feb, [facility] [address] [id number], [place] [id number] Jan, [facility] [address] [id number], [place] [address] Jan, [facility] [address] [id number], [place] [id number] Jan, High risk medication use Z79.899 and Anxiety associated with depression F41.[address] [facility] [address] [id number], [place] [id number] Jan, Anxiety F41.[address] [facility] [address] [id number], [place] [id number] Dec, Emotional lability R45.[address] [facility] [address] [id number], [place] [id number] Dec, Anxiety F41.[address] [facility] [address] [id number] [place] [id number] Dec, [facility] [address] [id number] [place] [id number] Dec, Anxiety associated with depression F41.[address] [facility] [address] [id number], [place] [id number] Dec, [facility] [address] [id number], [place] [id number] Dec, Persistent mood [affective] disorder, unspecified F34.9 [facility] [address] [id number], [place] [id number] Nov, Hyperthyroidism E05.[address] [facility] [address] [id number], [place] [id number] Nov, Hyperthyroidism E05.90 [facility] [address] [id number], [place] [id number] Nov, [facility] [address] [id number], [place] [id number] Nov, Hyperglycemia R73.9 ; Lumbago with sciatica, left side M54.42 ; Other chronic pain G89.29 and B union_ , 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 [facility] [employer] [id number], [place] [id number] Nov, Depression with anxiety F41.8 [facility] [address] [id number], [place] [address] Oct, High risk medication use Z79.899 ; Dysthymia F34.1 and Venous insufficiency I87.2 [facility] [employer] [id number], [place] [address] Oct, Anxiety F41.9 [facility] [address] [id number], [place] [id number] Oct, [facility] [address] [id number], [place] [id number] Sep, Iron deficiency anemia due to chronic blood loss D50.0 [facility] [address] [id number], [place] [id number] Sep, High risk medication use Z79.899 and Sleep disturbance G47.9 [facility] [employer] [id number], [place] [address] Sep, Anxiety disorder, unspecified F41.9 [facility] [address] [facility] [address] [id number], [place] [id number] Aug, [facility] [address] [facility] [address] [id number], [place] [id number] Aug, Iron deficiency anemia due to chronic blood loss D50.0 and Hyperthyroidism E05.90 [facility] [address] [facility] [address] [id number], [place] [address] Aug, Hyperthyroidism E05.90 [facility] [address] [facility] [address] [id number], [place] [id number] Aug, Hyperglycemia R73.9 [facility] [place] [address] [facility] [address] [id number], [place] [id number] Aug, High risk medication use Z79.899 ; Dysthymia F34.1 and Hyperglycemia R73.9 [place] [id number] [place] [id number] Jun, [facility] [place] [id number] [place] [id number] May, Menorrhagia with regular cycle N92.0 ; Dysmenorrhea N94.6 and Tendonitis M77.[address] [place] [id number] May, Blood glucose elevated R73.9 [address] [id number] May, [facility] [place] [id number] [place] [id number] May, Menorrhagia with regular cycle N92.0 and Dysmenorrhea N94.6 [place] [id number] [place] [address] [id number] Apr, Painful menstrual periods N94.6 ; Menorrhagia with regular cycle N92.0 and Depression with anxiety F41.[address] [place] [id number] Apr, [place] [id number] [place] [id number] Feb, Plantar wart B07.[address] [place] [address] [id number] Feb, [address] [place] [address] [id number] Feb, Blood glucose elevated R73.9 and Lumbar radiculopathy M54.16 [place] [id number] [place] [address] [id number] Feb, Low grade squamous intraepithelial lesion (LGSIL) on Papanicolaou smear of cervix R87.[address] [place] [id number] Feb, [facility] [id number] [place] [id number] Jan, [facility] [id number] [place] [id number] Jan, [address] [place] [address] [id number] Jan, [address] [place] [address] [id number] Jan, Routine gynecological examination V72.31 ; Encounter for Papanicolaou smear for cervical cancer screening Z12.4 and Breast cancer screening Z12.39 [address] [place] [address] [id number] Jan, Depression with anxiety F41.[address] [place] [address] [id number] Dec, Follow up V67.9 [address] [place] [address] [id number] Oct, Follow up V67.9 [place] [id number] [place] [address] [id number] Sep, Major depression, recurrent 296.30 [facility] [address] [place] [id number] [place] [id number] Jun, [facility] [address] [place] [id number] [place] [address] Jun, [facility] [address] [id number] [place] [id number] Feb, [facility] [address] [id number], [place] [address] Feb, [facility] [address] [id number] [place] [id number] Jan, [facility] [address] [id number], [place] [address] Jan, [facility] [address] [id number] [place] [id number] Dec, [facility] [address] [id number], [place] [address] Dec, [facility] [address] [id number] [place] [id number] Dec, [facility] [address] [facility] [id number], [place] [address] Dec, [facility] [address] [id number] [place] [id number] Nov, [facility] [address] [facility] [id number], [place] [address] 30 Nov, 2013 [facility] [address] [id number] [place] [id number] Nov, [facility] [address] [id number], [place] [address] 24 Nov, 2013 [facility] [address] [id number], [place] [id number] Nov, [facility] [address] [facility] [id number], [place] [address] 17 Nov, 2013 [facility] [address] [facility] [id number], [place] [address] 16 Nov, 2013 [facility] [address] [facility] [id number], [place] [address] 12 Nov, 2013 [facility] [address] [facility] [id number] [place] [id number] Nov, [facility] [address] [facility] [id number] [place] [id number] Nov, IMMUNIZATIONS No Known Immunizations SOCIAL HISTORY Never Assessed REASON FOR VISIT Having coughing attack when gets up and goes outside does not cough when just sits. Had asthma as child. [employer] PLAN OF CARE Activity Details Follow Up next week if not improving Reason: VITAL SIGNS Height 64.5 in 2017-08-20 Weight 221.9 lbs 2017-08-20 Temperature 96.8 degrees Fahrenheit 2017-08-20 Heart Rate 78 bpm 2017-08-20 Respiratory Rate 20 2017-08-20 Oximetry 98 % 2017-08-20 BMI 37.50 kg/m2 2017-08-20 Blood pressure systolic 122 mmHg 2017-08-20 Blood pressure diastolic 60 mmHg 2017-08-20 MEDICATIONS Medication Instructions Dosage Frequency Start Date End Date Duration Status Cetirizine HCl 10 mg Orally Once a day 1 tablet 24h 90 days Active Cheratussin AC 100-10 MG/5ML Orally every 4 hrs 5 ml 4h July, July, 05 days Active Flonase 50 MCG/ACT Nasally Once a day (twice per day for first 2 weeks) 1 spray in each nostril July, 30 day(s) Active Tessalon Perles 100 mg Orally Three times a day 1 capsule as needed 8h Active ProAir HFA 108 (90 Base) MCG/ACT Inhalation 4 times a day 2 puffs 6h Active PredniSONE 20 mg Orally Once a day-start 08-19-17 2 tablet with food 05 days Active Azithromycin 250 MG Orally Once a day 2 tablets on the first day, then 1 tablet daily for 4 days 24h July, July, 5 day(s) Active RESULTS No Results PROCEDURES No Known procedures INSTRUCTIONS MEDICATIONS ADMINISTERED No Known Medications MEDICAL (GENERAL) HISTORY Type Description Date Medical History depression-electroshock therapy at the [facility] in late Medical History Anxiety Medical History left knee pain Medical History hyperglycemia Medical History DUB Surgical History tonsillectomy and adenoidectomy Surgical History section 1993,2005 Surgical History tubal ligation 8 years ago Surgical History partial hysterectomy/ still has ovaries 08/19/15 Hospitalization History psych stays
--- OUTSIDE RECORDS SUMMARY | 2018-07-07 13:35 | XMS REPORT ---
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 Electron Beam Name Role Phone ALEJANDRO DIAS Unavailable PROBLEMS Type Condition ICD9-CM Code UFY64-QV Code Onset Dates Condition Status SNOMED Code Problem Persistent mood [affective] disorder, unspecified F34.9 Active 86363019 Problem Emotional lability R45.86 Active 21464282 Problem Anxiety associated with depression F41.8 Active 830122799 Problem Obesity (BMI 35.0-39.9 without comorbidity) E66.9 Active 343115212 Problem Dysthymia F34.1 Active 94302381 Problem Menorrhagia with regular cycle N92.0 Active 869412740 Problem High risk medication use Z79.899 Active 643395196 Problem Colon cancer screening Z12.11 Active 975152948 Problem Breast cancer screening Z12.31 Active 670213421 Problem Venous insufficiency I87.2 Active 55331925 Problem History of abnormal cervical Pap smear Z87.898 Active 120751174 Problem Hyperthyroidism E05.90 Active 79454213 Problem Sleep disturbance G47.9 Active 09865699 Problem Hyperglycemia R73.9 Active 41981828 Problem Iron deficiency anemia due to chronic blood loss D50.0 Active 73610956 Problem Lumbago with sciatica, left side M54.42 Active 841260200 Problem Other chronic pain G89.29 Active 07275495 Problem Anxiety disorder, unspecified F41.9 Active 373580891 Problem Anxiety F41.9 Active 64798725 Problem B union_ , 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 [address] [id number] [place] [id number] July, Bronchiolitis J21.9 ; Acute non-recurrent maxillary sinusitis J01.00 and Cough R05 [facility] [address] [id number][place] [id number] July, Bronchiolitis J21.9 [facility] [address] [id number][place] [id number] Apr, Influenza J11.1 [facility] [address] [place] [address] AVE [id number], [place] [id number] Jan, [facility] [address] [id number][place] [id number] Jan, Venous insufficiency I87.2 and Obesity (BMI 35.0-39.9 without comorbidity) E66.9 [facility] [employer] [id number], [place] [id number] Dec, High risk medication use Z79.899 ; Hyperglycemia R73.9 ; Hyperthyroidism E05.90 ; Iron deficiency anemia due to chronic blood loss D50.0 and Menorrhagia with regular cycle N92.0 [facility] [employer] [facility] [address] [address] [address] [id number], [place] [id number] Nov, [facility] [employer] [facility] [address] [id number][place] [id number] Nov, [facility] [employer] [place] [address] AVE [id number], [place] [id number] Nov, High risk medication use Z79.899 ; Dysthymia F34.1 and Venous insufficiency I87.2 [facility] [address] [id number], [place] [id number] Sep, [facility] [employer] [place] [address] AVE [id number], [place] [address] Sep, History of abnormal cervical Pap smear Z87.898 ; Breast cancer screening Z12.31 and Colon cancer screening Z12.[address] [id number] [place] [phone] Jun, [facility] [address] [id number] [place] [id number] Apr, [facility] [address] [id number] [place] [id number] Apr, High risk medication use Z79.899 ; Dysthymia F34.1 and Hyperglycemia R73.[address] [facility] [address] [id number] [place] [id number] Feb, [facility] [address] [address] [id number] [place] [id number] Feb, Anxiety associated with depression F41.[address] [facility] [address] [id number] [place] [phone] Feb, [facility] [address] [id number], [place] [id number] Jan, [facility] [address] [id number], [place] [id number] Jan, [facility] [address] [id number], [place] [id number] Jan, High risk medication use Z79.899 and Anxiety associated with depression F41.[address] [facility] [address] [address] [id number], [place] [id number] Jan, Anxiety F41.[address] [facility] [address] [id number], [place] [address] Dec, Emotional lability R45.[address] [facility] [address] [id number], [place] [id number] Dec, Anxiety F41.[address] [facility] [address] [id number] [place] [id number] Dec, [facility] [address] [address] [id number], [place] [id number] Dec, Anxiety associated with depression F41.[address] [facility] [address] [id number] [place] [id number] Dec, [facility] [address] [address] [id number], [place] [id number] Dec, Persistent mood [affective] disorder, unspecified F34.9 [facility] [address] [id number], [place] [id number] Nov, Hyperthyroidism E05.90 [facility] [address] [id number], [place] [id number] Nov, Hyperthyroidism E05.90 [facility] [address] [id number], [place] [id number] Nov, [facility] [address] [id number], [place] [id number] Nov, Hyperglycemia R73.9 ; Lumbago with sciatica, left side M54.42 ; Other chronic pain G89.29 and B union_ , 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 [facility] [address] [id number], [place] [id number] Nov, Depression with anxiety F41.8 [facility] [place] [address] [id number], [place] [address] Oct, High risk medication use Z79.899 ; Dysthymia F34.1 and Venous insufficiency I87.2 [facility] [address] [id number], [place] [id number] Oct, Anxiety F41.9 [facility] [address] [id number], [place] [id number] Oct, [facility] [address] [id number], [place] [id number] Sep, Iron deficiency anemia due to chronic blood loss D50.0 [facility] [address] [id number], [place] [id number] Sep, High risk medication use Z79.899 and Sleep disturbance G47.9 [facility] [address] [id number], [place] [id number] Sep, Anxiety disorder, unspecified F41.9 [facility] [address] [facility] [address] [id number], [place] [id number] Aug, [facility] [address] [id number], [place] [id number] Aug, Iron deficiency anemia due to chronic blood loss D50.0 and Hyperthyroidism E05.90 [facility] [address] [facility] [address] [id number], [place] [id number] Aug, Hyperthyroidism E05.90 [facility] [address] [facility] [address] [id number], [place] [id number] Aug, Hyperglycemia R73.9 [facility] [place] [address] [facility] [address] [id number], [place] [id number] Aug, High risk medication use Z79.899 ; Dysthymia F34.1 and Hyperglycemia R73.9 [address] [place] [id number] Jun, [facility] [place] [id number] [place] [id number] May, Menorrhagia with regular cycle N92.0 ; Dysmenorrhea N94.6 and Tendonitis M77.9 [place] [id number] [place] [address] [id number] May, Blood glucose elevated R73.9 [address] [place] [address] [id number] May, [facility] [place] [id number] [place] [address] [phone] May, Menorrhagia with regular cycle N92.0 and Dysmenorrhea N94.6 [facility] [place] [id number] [place] [address] [id number] Apr, Painful menstrual periods N94.6 ; Menorrhagia with regular cycle N92.0 and Depression with anxiety F41.8 [address] [place] [address] [id number] Apr, [place] [id number] [place] [address] [id number] Feb, Plantar wart B07.0 [address] [place] [address] [id number] Feb, [place] [id number] [place] [address] [id number] Feb, Blood glucose elevated R73.9 and Lumbar radiculopathy M54.16 [place] [id number] [place] [address] [id number] Feb, Low grade squamous intraepithelial lesion (LGSIL) on Papanicolaou smear of cervix R87.612 [address] [place] [address] [id number] Feb, [facility] [id number] [place] [id number] Jan, [facility] [id number] [place] [address] [id number] Jan, [address] [place] [address] [id number] Jan, [address] [place] [address] [id number] Jan, Routine gynecological examination V72.31 ; Encounter for Papanicolaou smear for cervical cancer screening Z12.4 and Breast cancer screening Z12.39 [place] [id number] [place] [address] [id number] Jan, Depression with anxiety F41.8 [address] [place] [address] [id number] Dec, Follow up V67.9 [address] [place] [address] [id number] Oct, Follow up V67.9 [address] [place] [address] [id number] Sep, Major depression, recurrent 296.30 [facility] [address] [id number] [place] [id number] 84[address] 14 Jun, 2014 [facility] [id number] [place] [address] Jun, [facility] [address] [id number] [place] [id number] Feb, [facility] [place] [facility] [address] [facility] [id number] [place] [address] Feb, [facility] [address] [facility] [id number] [place] [id number] Jan, [facility] [place] [facility] [address] [facility] [id number] [place] [address] Jan, [facility] [address] [facility] [id number] [place] [phone] Dec, [facility] [place] [facility] [address] [facility] [id number] [place] [address] Dec, [facility] [address] [facility] [id number][place] [id number] Dec, [facility] [place] [facility] [address] [address] Dec, [facility] [address] [facility] [id number], [place] [id number] Nov, [facility] [place] [facility] [address] [facility] [id number] [place] [address] 30 Nov, 2013 [facility] [address] [facility] [id number], [place] [id number] Nov, [facility] [place] [facility] [address] [facility] [id number] [place] [address] 24 Nov, 2013 [facility] [address] [facility] [id number], [place] [id number] Nov, [facility] [place] [facility] [address] [facility] [id number] [place] [address] 17 Nov, 2013 [facility] [place] [facility] [address] [facility] [id number] [place] [address] 16 Nov, 2013 [facility] [place] [facility] [address] [facility] [id number] [place] [address] 12 Nov, 2013 [facility] [address] [facility] [id number], [place] [id number] Nov, [facility] [address] [facility] [id number] [place] [address] Nov, IMMUNIZATIONS Vaccine Route Administration Date Status SOLUMEDROL (UP TO 125 MG) IM Intramuscular August 18, 2017 Administered SOCIAL HISTORY Never Assessed REASON FOR VISIT Cough/congestion/sinus congestion 2 days ago Joseph RN PLAN OF CARE Activity Details Follow Up 2 days Reason:bronchitis follow up Future/Pending Procedure NEBULIZER TREATMENT Future/Pending Procedure ALBUTEROL UNIT DOSE FORM INHALED VITAL SIGNS Height 64.5 in 2017-08-18 Weight 221.8 lbs 2017-08-18 Temperature 98.0 degrees Fahrenheit 2017-08-18 Heart Rate 80 bpm 2017-08-18 Respiratory Rate 18 2017-08-18 Oximetry 96 % 2017-08-18 BMI 37.48 kg/m2 2017-08-18 Blood pressure systolic 120 mmHg 2017-08-18 Blood pressure diastolic 72 mmHg 2017-08-18 MEDICATIONS Medication Instructions Dosage Frequency Start Date End Date Duration Status PredniSONE 20 mg Orally Once a day-start 08-19-17 2 tablet with food July, July, 05 days Active Fexofenadine HCl 180 MG Orally Once a day 1 tablet as needed 24h Not-Taking Zanaflex 4 MG Orally every 8 hrs 1 capsule as needed 8h 07 Nov, 2015 Not-Taking Propranolol HCl 20 mg Orally Twice a day 1 tablet 12h Jan, Not-Taking Hydrochlorothiazide 12.5 MG Orally Once a day 1 capsule in the morning 24h Nov, Not-Taking Metformin HCl 500 mg Orally Twice a day 1 tablet with meals 12h 90 days Not-Taking Abilify 2 MG Orally Once a day 1 tablet 24h Dec, 0 days Not- Taking Tessalon Perles 100 mg Orally Three times a day 1 capsule as needed 8h July, Active ProAir HFA 108 (90 Base) MCG/ACT Inhalation 4 times a day 2 puffs 6h July Active Cymbalta 60 mg Orally Once a day 1 capsule 24h Sep, 0 days Not -Taking Iron 325 (65 Fe) MG Orally Once a day 1 tablet 24h Not-Taking Clonazepam 0.5 MG Orally Twice a day for extreme anxiety 1 tablet Jan Not-Taking Cetirizine HCl 10 mg Orally Once a day 1 tablet 24h July, Jan, 90 days Active RESULTS Name Result Date Reference Range STREP A (IN HOUSE) 2017-08-18 STREP A NEGATIVE Control POSITIVE Lot # [id number] Exp date 12/04/19 Xray : Chest 2 View (IN HOUSE) 2017-08-18 PROCEDURES Procedure Date Ordered Result Body Site NEB/MDI RX INITIAL August 18, 2017 ALBUTEROL INHAL UNIT DOSE 1 MG August 18, 2017 THER/PROPH/DIAG INJ, SC/IM August 18, 2017 STREP A ASSAY W/OPTIC August 18, 2017 X-RAY EXAM CHEST 2 VIEWS August 18, 2017 SOLUMEDROL (UP TO 125 MG) August 18, 2017 INSTRUCTIONS MEDICATIONS ADMINISTERED No Known Medications MEDICAL (GENERAL) HISTORY Type Description Date Medical History depression-electroshock therapy at the [facility] in late Medical History Anxiety Medical History left knee pain Medical History hyperglycemia Medical History DUB Surgical History tonsillectomy and adenoidectomy Surgical History section 1993,2005 Surgical History tubal ligation 8 years ago Surgical History partial hysterectomy/ still has ovaries 08/19/15 Hospitalization History psych stays
--- OUTSIDE RECORDS SUMMARY | 2018-07-07 13:36 | XMS REPORT ---
Author Author MARIE SOSA Organization [facility] Address Unknown Phone Unavailable Care Team Providers Care Laborer [employer] Name Role Phone MARIE SOSA Unavailable Unavailable PROBLEMS Type Condition ICD9-CM Code VLR34-FT Code Onset Dates Condition Status SNOMED Code Problem Anxiety F41.9 Active 48682993 Problem Persistent mood [affective] disorder, unspecified F34.9 Active 72994698 Problem Depression with anxiety F41.8 Active 697869863 Problem Venous insufficiency I87.2 Active 36368285 Problem History of abnormal cervical Pap smear Z87.898 Active 244730387 Problem Emotional lability R45.86 Active 66621278 Problem Anxiety associated with depression F41.8 Active 374215336 Problem Colon cancer screening Z12.11 Active 172475734 Problem Breast cancer screening Z12.31 Active 869328517 Problem Hyperglycemia R73.9 Active 23075778 Problem Iron deficiency anemia due to chronic blood loss D50.0 Active 26464593 Problem High risk medication use Z79.899 Active 261897645 Problem Dysthymia F34.1 Active 54471609 Problem Anxiety disorder, unspecified F41.9 Active 952244781 Problem B union_ , 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 852736551 Problem Hyperthyroidism E05.90 Active 30157989 Problem Lumbago with sciatica, left side M54.42 Active 367082619 Problem Sleep disturbance G47.9 Active 15031390 Problem Other chronic pain G89.29 Active 03642390 ALLERGIES No Information SOCIAL HISTORY Never Assessed PLAN OF CARE VITAL SIGNS MEDICATIONS Unknown Medications RESULTS No Results PROCEDURES No Known procedures IMMUNIZATIONS No Known Immunizations MEDICAL (GENERAL) HISTORY Type Description Date Medical History depression-electroshock therapy at the [facility] in late Medical History Anxiety Medical History left knee pain Medical History hyperglycemia Medical History DUB Surgical History tonsillectomy and adenoidectomy Surgical History section 1993,2005 Surgical History tubal ligation 8 years ago Surgical History partial hysterectomy/ still has ovaries 08/19/15 Hospitalization History psych stays
--- OUTSIDE RECORDS SUMMARY | 2018-07-07 13:36 | XMS REPORT ---
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 [address]-28 10 mg Orally Once a day Feb 10, 2015 1 capsule in the morning Cymbalta [facility] [address]-88 30 MG Orally Twice a day October 21, 2014 1 capsule Results No Known Results Summary Purpose [employer] Submission
--- OUTSIDE RECORDS SUMMARY | 2018-07-07 13:36 | XMS REPORT ---
Author Author ADRIÁNALEJANDRO SOSA [facility] Address [address] [place] [address] Care Team Providers Care Hearing Aid Repairer Name Role Phone ALEJANDRO DIAS Unavailable PROBLEMS Type Condition ICD9-CM Code ADS22-TQ Code Onset Dates Condition Status SNOMED Code Problem Anxiety F41.9 Active 15859162 Problem Persistent mood [affective] disorder, unspecified F34.9 Active 50845482 Problem Depression with anxiety F41.8 Active 724615624 Problem Venous insufficiency I87.2 Active 35547966 Problem History of abnormal cervical Pap smear Z87.898 Active 003182819 Problem Emotional lability R45.86 Active 62866536 Problem Anxiety associated with depression F41.8 Active 175924008 Problem Colon cancer screening Z12.11 Active 765742289 Problem Breast cancer screening Z12.31 Active 113751260 Problem Hyperglycemia R73.9 Active 29476825 Problem Iron deficiency anemia due to chronic blood loss D50.0 Active 60748673 Problem High risk medication use Z79.899 Active 226600429 Problem Dysthymia F34.1 Active 96439324 Problem Anxiety disorder, unspecified F41.9 Active 386337706 Problem B union_ , 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 Unknown Non Drug Allergy Apr, Unknown SOCIAL HISTORY No smoking Hx information available PLAN OF CARE Activity Details Follow Up 2 Months Reason:WW Exam VITAL SIGNS Height 64.5 in 2016-05-04 Weight 205.1 lbs 2016-05-04 Temperature 96.9 degrees Fahrenheit 2016-05-04 Heart Rate 83 bpm 2016-05-04 Respiratory Rate 18 2016-05-04 BMI 34.66 kg/m2 2016-05-04 Blood pressure systolic 112 mmHg 2016-05-04 Blood pressure diastolic 72 mmHg 2016-05-04 MEDICATIONS Medication Instructions Dosage Frequency Start Date End Date Duration Status Fexofenadine HCl 180 MG Orally Once a day 1 tablet as needed 24h Active Metformin HCl 500 MG Orally Once a day 1 tablet with meals 24h 0 days Active Abilify 2 MG Orally Once a day 1 tablet 24h Dec, 0 days Active Clonazepam 0.5 MG Orally Twice a day for extreme anxiety 1 tablet Jan Active Propranolol HCl 20 mg Orally Twice a day 1 tablet 12h Jan, Active Zanaflex 4 MG Orally every 8 hrs 1 capsule as needed 8h Nov, Active Cymbalta 60 mg Orally Once a day 1 capsule 24h Sep, 0 days Active RESULTS Name Result Date Reference Range A1C (IN HOUSE) 2016-05-04 A1C IN HOUSE 5.4 4.3 - 5.6 % Previous A1c 5.5 Lot [id number] Exp date 02/12 PROCEDURES Procedure Date Ordered Related Diagnosis Body Site GLYCATED HEMOGLOBIN TEST May 04, 2016 Office Visit, Est Pt., Level 3 May 04, 2016 IMMUNIZATIONS No Known Immunizations
--- OUTSIDE RECORDS SUMMARY | 2018-07-07 13:36 | XMS REPORT ---
Author Author ALEKS CARROLL [employer] Address Unknown Phone Unavailable Care Team Providers Care Director Of Restaurant Name Role Phone ALEKS CARROLL Unavailable Allergies, Adverse Reactions, Alerts Substance Reaction Event Type N.K.D.A. 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 Active Assessment Depression with anxiety F41.8 Active Problem Dermatophytosis of the body 110.5 [...] Start Date End Date Status Dosage Prozac [facility] [address]-74 10 MG Orally Once a day Feb 10, 2015 1 capsule in the morning Cymbalta [facility] [address]-37 30 MG Orally Twice a day October 21, 2014 1 capsule Clonazepam [facility] [address]-46 0.5 MG Orally Once a day PRN Feb 10, 2015 1 tablet Abilify [facility] [address]-05 5 MG Orally Once a day Feb 10, 2015 1 tablet Procedures Procedure Coding System Code Date COMPLETE CBC W/AUTO DIFF WBC CPT-4 90269 Feb 10, 2015 ASSAY THYROID STIM HORMONE CPT-4 64078 Feb 10, 2015 COMPREHEN METABOLIC PANEL CPT-4 35550 Feb 10, 2015 VENIPUNCT, ROUTINE* CPT-4 80886 Feb 10, 2015 LIPID PANEL CPT-4 41528 Feb 10, 2015 Office Visit, Est Pt., Level 3 CPT-4 83394 Feb 10, 2015 Vital Signs Date/Time: Feb 10, 2015 Temperature 98.1 F Weight 197.2 lbs Height 64.5 in BMI 33.32 Index Blood Pressure Diastolic 86 mmHg Blood Pressure Systolic 120 mmHg Cardiac Monitoring Heart Rate 80 bpm Results Name Result Date Reference Range Unit Abnormality Flag ROUTINE VENIPUNCTURE Summary Purpose [employer] Submission
--- OUTSIDE RECORDS SUMMARY | 2018-07-07 13:36 | XMS REPORT ---
Author Author CHING DUNLAP Organization [facility] Address [address] [place] [address] Care Team Providers Care Head Tennis Coach Name Role Phone CHING DUNLAP Unavailable PROBLEMS Type Condition ICD9-CM Code EIM69-CN Code Onset Dates Condition Status SNOMED Code Problem Persistent mood [affective] disorder, unspecified F34.9 Active 79957717 Problem Emotional lability R45.86 Active 50932010 Problem Anxiety associated with depression F41.8 Active 482544624 Problem Obesity (BMI 35.0-39.9 without comorbidity) E66.9 Active 191302419 Problem Dysthymia F34.1 Active 47986436 Problem Menorrhagia with regular cycle N92.0 Active 296642815 Problem High risk medication use Z79.899 Active 292921855 Problem Colon cancer screening Z12.11 Active 109904948 Problem Breast cancer screening Z12.31 Active 213457543 Problem Venous insufficiency I87.2 Active 12111525 Problem History of abnormal cervical Pap smear Z87.898 Active 660287877 Problem Hyperthyroidism E05.90 Active 02200325 Problem Sleep disturbance G47.9 Active 59688361 Problem Hyperglycemia R73.9 Active 54994654 Problem Iron deficiency anemia due to chronic blood loss D50.0 Active 34244422 Problem Lumbago with sciatica, left side M54.42 Active 473399987 Problem Other chronic pain G89.29 Active 24817561 Problem Anxiety disorder, unspecified F41.9 Active 687912841 Problem Anxiety F41.9 Active 25387186 Problem B union_ , 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 837632735 Problem Depression with anxiety F41.8 Active 146693279 ALLERGIES No Known Allergies ENCOUNTERS Encounter Location Date Diagnosis [address] [id number] [place] [id number] July, Bronchiolitis J21.9 ; Acute non-recurrent maxillary sinusitis J01.00 and Cough R05 [facility] [address] [facility] [address] [id number] [id number] July, Bronchiolitis J21.9 [facility] [address] [facility] [address] [id number], [place] [id number] Apr, Influenza J11.1 [facility] [address] [facility] [address] [id number][place] [id number] Jan, [facility] [address] [id number][place] [id number] Jan, Venous insufficiency I87.2 and Obesity (BMI 35.0-39.9 without comorbidity) E66.9 [facility] [address] [facility] [address] [id number], [place] [address] Dec, High risk medication use Z79.899 ; Hyperglycemia R73.9 ; Hyperthyroidism E05.90 ; Iron deficiency anemia due to chronic blood loss D50.0 and Menorrhagia with regular cycle N92.0 [facility] [address] [facility] [address] [id number], [place] [id number] Nov, [facility] [address] [facility] [address] [id number], [place] [id number] Nov, [facility] [address] [place] [address] AVE [id number], [place] [id number] Nov, High risk medication use Z79.899 ; Dysthymia F34.1 and Venous insufficiency I87.2 [facility] [address] [facility] [address] [id number], [place] [id number] Sep, [facility] [address] [place] [address] AVE [id number], [place] [id number] Sep, History of abnormal cervical Pap smear Z87.898 ; Breast cancer screening Z12.31 and Colon cancer screening Z12.[address] [id number], [place] [id number] Jun, [facility] [address] [id number] [place] [id number] Apr, [facility] [address] [id number] [place] [id number] Apr, High risk medication use Z79.899 ; Dysthymia F34.1 and Hyperglycemia R73.[address] [facility] [address] [id number] [place] [id number] Feb, [facility] [address] [id number], [place] [id number] Feb, Anxiety associated with depression F41.[address] [facility] [address] [id number] [place] [phone] Feb, [facility] [address] [id number], [place] [id number] Jan, [facility] [address] [id number], [place] [id number] Jan, [facility] [address] [id number], [place] [id number] Jan, High risk medication use Z79.899 and Anxiety associated with depression F41.[address] [facility] [address] [id number], [place] [phone] Jan, Anxiety F41.[address] [facility] [address] [id number], [place] [id number] Dec, Emotional lability R45.[address] [facility] [address] [id number], [place] [id number] Dec, Anxiety F41.[address] [facility] [address] [id number] [place] [id number] Dec, [facility] [address] [id number], [place] [id number] Dec, Anxiety associated with depression F41.[address] [facility] [address] [id number] [place] [id number] Dec, [facility] [address] [id number], [place] [id number] Dec, Persistent mood [affective] disorder, unspecified F34.9 [facility] [address] [id number], [place] [id number] Nov, Hyperthyroidism E05.90 [facility] [address] [id number], [place] [id number] Nov, Hyperthyroidism E05.90 [facility] [address] [id number], [place] [id number] Nov, [facility] [address] [id number], [place] [id number] Nov, Hyperglycemia R73.9 ; Lumbago with sciatica, left side M54.42 ; Other chronic pain G89.29 and B union_ , 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 [facility] [address] [id number], [place] [id number] Nov, Depression with anxiety F41.8 [facility] [id number], [place] [id number] Oct, High risk medication use Z79.899 ; Dysthymia F34.1 and Venous insufficiency I87.2 [facility] [address] [id number], [place] [id number] Oct, Anxiety F41.9 [facility] [address] [id number], [place] [id number] Oct, [facility] [address] [id number], [place] [id number] Sep, Iron deficiency anemia due to chronic blood loss D50.0 [facility] [address] [id number], [place] [address] Sep, High risk medication use Z79.899 and Sleep disturbance G47.9 [facility] [address] [id number], [place] [id number] Sep, Anxiety disorder, unspecified F41.9 [facility] [address] [facility] [address] [id number], [place] [id number] Aug, [facility] [address] [id number], [place] [id number] Aug, Iron deficiency anemia due to chronic blood loss D50.0 and Hyperthyroidism E05.90 [facility] [address] [facility] [address] [id number], [place] [id number] Aug, Hyperthyroidism E05.90 [facility] [address] [facility] [address] [id number], [place] [id number] Aug, Hyperglycemia R73.9 [facility] [place] [address] [address] [facility] [address] [id number], [place] [id number] Aug, High risk medication use Z79.899 ; Dysthymia F34.1 and Hyperglycemia R73.9 [facility] [address] [place] [id number] Jun, [facility] [place] [id number] [place] [id number] May, Menorrhagia with regular cycle N92.0 ; Dysmenorrhea N94.6 and Tendonitis M77.[address] [place] [address] [phone] May, Blood glucose elevated R73.9 [address] [id number] May, [facility] [place] [id number] [place] [id number] May, Menorrhagia with regular cycle N92.0 and Dysmenorrhea N94.6 [facility] [place] [id number] [place] [id number] Apr, Painful menstrual periods N94.6 ; Menorrhagia with regular cycle N92.0 and Depression with anxiety F41.[address] [place] [id number] Apr, [place] [id number] [place] [id number] Feb, Plantar wart B07.0 [address] [place] [address] [phone] Feb, [place] [id number] [place] [id number] Feb, Blood glucose elevated R73.9 and Lumbar radiculopathy M54.16 [address] [id number] [place] [id number] Feb, Low grade squamous intraepithelial lesion (LGSIL) on Papanicolaou smear of cervix R87.612 [address] [place] [address] [id number] Feb, [facility] [id number] [place] [id number] Jan, [facility] [id number] [place] [address] [phone] Jan, [address] [place] [id number] Jan, [address] [place] [id number] Jan, Routine gynecological examination V72.31 ; Encounter for Papanicolaou smear for cervical cancer screening Z12.4 and Breast cancer screening Z12.39 [address] [place] [address] [id number] Jan, Depression with anxiety F41.8 [place] [id number] [place] [address] [id number] Dec, Follow up V67.9 [address] [place] [address] [id number] Oct, Follow up V67.9 [place] [id number] [place] [id number] Sep, Major depression, recurrent 296.30 [facility] [id number] [place] [address] 14 Jun, 2014 [facility] [address] [address] Jun, [facility] [address] [id number] [place] [id number] Feb, [facility] [place] [facility] [address] [id number][place] [address] Feb, [facility] [address] [id number] [place] [id number] Jan, [facility] [place] [facility] [address] [facility] [id number] [place] [address] Jan, [facility] [address] [id number] [place] [id number] Dec, [facility] [place] [facility] [address] [facility] [id number] [place] [address] Dec, [facility] [address] [id number] [place] [id number] Dec, [facility] [place] [facility] [address] [address] Dec, [facility] [address] [id number], [place] [id number] Nov, [facility] [place] [facility] [address] [facility] [id number], [place] [address] 30 Nov, 2013 [facility] [address] [facility] [id number][place] [id number] Nov, [facility] [place] [facility] [address] [facility] [id number], [place] [address] 24 Nov, 2013 [facility] [address] [facility] [id number], [place] [id number] Nov, [facility] [place] [facility] [address] [facility] [id number], [place] [address] 17 Nov, 2013 [facility] [place] [facility] [address] [facility] [id number], [place] [address] 16 Nov, 2013 [facility] [place] [facility] [address] [facility] [id number], [place] [address] 12 Nov, 2013 [facility] [address] [id number], [place] [id number] Nov, [facility] [address] [facility] [id number] [place] [address] Nov, IMMUNIZATIONS No Known Immunizations SOCIAL HISTORY Never Assessed REASON FOR VISIT coughing/fever- c/o cough x 2 days, had some amoxicillin at home, advised against. c/o head/chest congestion. c/o body ache. Anna Marie FARRELL PLAN OF CARE Activity Details Follow Up prn Reason: VITAL SIGNS Height 64.5 in 2017-05-09 Weight 229 lbs 2017-05-09 Temperature 100.6 degrees Fahrenheit 2017-05-09 Heart Rate 99 bpm 2017-05-09 Respiratory Rate 18 2017-05-09 BMI 38.70 kg/m2 2017-05-09 Blood pressure systolic 118 mmHg 2017-05-09 Blood pressure diastolic 72 mmHg 2017-05-09 MEDICATIONS Medication Instructions Dosage Frequency Start Date End Date Duration Status Promethazine-Codeine 6.25-10 MG/5ML Orally every 6 hrs 5 ml as needed 6h Apr, Apr, 10 days Active Zanaflex 4 MG Orally every 8 hrs 1 capsule as needed 8h 07 Nov, 2015 Not-Taking Fexofenadine HCl 180 MG Orally Once a day 1 tablet as needed 24h Not-Taking Iron 325 (65 Fe) MG Orally Once a day 1 tablet 24h Not-Taking PredniSONE 20 mg Orally Once a day 2 tablets 24h Apr, Apr, 05 days Active Loratadine Allergy Relief 10 MG Orally Once a day 1 tablet on the tongue and allow to dissolve 24h Not-Taking Abilify 2 MG Orally Once a day 1 tablet 24h Dec, 0 days Active Cymbalta 60 mg Orally Once a day 1 capsule 24h Sep, 0 days Active Clonazepam 0.5 MG Orally Twice a day for extreme anxiety 1 tablet Jan Active Propranolol HCl 20 mg Orally Twice a day 1 tablet 12h Jan, Active Hydrochlorothiazide 12.5 MG Orally Once a day 1 capsule in the morning 24h Nov, Active Metformin HCl 500 mg Orally Twice a day 1 tablet with meals 12h 90 days Active RESULTS No Results PROCEDURES No Known procedures INSTRUCTIONS MEDICATIONS ADMINISTERED No Known Medications MEDICAL (GENERAL) HISTORY Type Description Date Medical History depression-electroshock therapy at the [facility] in late Medical History Anxiety Medical History left knee pain Medical History hyperglycemia Medical History DUB Surgical History tonsillectomy and adenoidectomy Surgical History section 1993,2005 Surgical History tubal ligation 8 years ago Surgical History partial hysterectomy/ still has ovaries 08/19/15 Hospitalization History psych stays
--- OUTSIDE RECORDS SUMMARY | 2018-07-07 13:36 | XMS REPORT ---
Author Author ALEJANDRO DIAS Organization [employer] Address Unknown Phone Unavailable Care Team Providers Care Metallurgical Laboratory Assistant Name Role Phone ALEJANDRO DIAS CP Unavailable Allergies No Known Allergies Problems Problem Type Condition Code Onset Dates Condition Status Problem Iron deficiency anemia due to chronic blood loss D50.0 Active Problem Anxiety disorder, unspecified F41.9 Active Problem Sleep disturbance G47.9 Active Problem Persistent mood [affective] disorder, unspecified F34.9 Active Problem Depression with anxiety F41.8 Active Problem Anxiety associated with depression F41.8 Active Problem Other chronic pain G89.29 Active Problem B union_ , 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
--- OUTSIDE RECORDS SUMMARY | 2018-07-07 13:36 | XMS REPORT ---
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 Problem Anxiety disorder, unspecified F41.9 Active Problem Anxiety associated with depression F41.8 Active Problem Persistent mood [affective] disorder, unspecified F34.9 Active Problem Emotional lability R45.86 Active Problem Lumbago with sciatica, left side M54.42 Active Problem Other chronic pain G89.29 Active Problem Depression with anxiety F41.8 Active Problem Anxiety F41.9 Active Problem Dysthymia F34.1 Active Problem High risk medication use Z79.899 Active Problem Hyperthyroidism E05.90 Active Problem Hyperglycemia R73.9 Active Problem Iron deficiency anemia due to chronic blood loss D50.0 Active Medications No Known Medications Results No Known Results Summary Purpose [employer] Submission
--- OUTSIDE RECORDS SUMMARY | 2018-07-07 13:36 | XMS REPORT ---
Author Author ARUN ALEJANDRO Organization [facility] Address [address] [place] [address] Care Team Providers Care Design Drafter Chief Name Role Phone ALEJANDRO DIAS Unavailable PROBLEMS Type Condition ICD9-CM Code NHV13-CM Code Onset Dates Condition Status SNOMED Code Problem Iron deficiency anemia due to chronic blood loss D50.0 Active 72927876 Problem Anxiety disorder, unspecified F41.9 Active 416937029 Problem Sleep disturbance G47.9 Active 42108880 Problem Persistent mood [affective] disorder, unspecified F34.9 Active 55934834 Problem Depression with anxiety F41.8 Active 440488258 Problem Other chronic pain G89.29 Active 36897615 Problem B union_ , 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 396171796 Problem Anxiety F41.9 Active 07459249 Problem Lumbago with sciatica, left side M54.42 Active 050423363 Problem Hyperglycemia R73.9 Active 07371533 Problem Dysthymia F34.1 Active 26578570 Problem High risk medication use Z79.899 Active 967782233 Assessment Hyperthyroidism E05.90 Nov, Active 34544574 Problem Hyperthyroidism E05.90 Active 01998152 ALLERGIES Unknown Allergies SOCIAL HISTORY No smoking Hx information available PLAN OF CARE VITAL SIGNS MEDICATIONS Unknown Medications RESULTS Name Result Date Reference Range TSH W/ FREE T4 2015-12-22 TSH 0.898 0.450-4.500 T4,Free(Direct) 1.08 0.82-1.77 PROCEDURES Procedure Date Ordered Related Diagnosis Body Site ASSAY THYROID STIM HORMONE Dec 22, 2015 ASSAY OF FREE THYROXINE Dec 22, 2015 VENIPUNCT, ROUTINE* Dec 22, 2015 IMMUNIZATIONS No Known Immunizations
--- OUTSIDE RECORDS SUMMARY | 2018-07-07 13:36 | XMS REPORT ---
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
--- OUTSIDE RECORDS SUMMARY | 2018-07-07 13:36 | XMS REPORT ---
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 221312826 Problem Emotional lability R45.86 Active 48609915 Problem Anxiety associated with depression F41.8 Active 629297907 Problem Anxiety F41.9 Active 99086943 Problem Lumbago with sciatica, left side M54.42 Active 681538337 Problem Persistent mood [affective] disorder, unspecified F34.9 Active 96062591 Problem Depression with anxiety F41.8 Active 167604759 Assessment Anxiety associated with depression F41.8 Feb, Active 992156304 Problem High risk medication use Z79.899 Active 443364353 Problem Hyperthyroidism E05.90 Active 29318584 Problem Hyperglycemia R73.9 Active 14429322 Problem Iron deficiency anemia due to chronic blood loss D50.0 Active 34959684 Problem Dysthymia F34.1 Active 75975202 Problem Sleep disturbance G47.9 Active 65130138 ALLERGIES Substance Reaction Event Type Date Status N.K.D.A. Unknown Non Drug Allergy Feb, Unknown SOCIAL HISTORY No smoking Hx information available PLAN OF CARE Activity Details Pending Test CBC Pending Test CMP 2 Months,Reason: VITAL SIGNS Height 64.5 in 2016-03-09 Weight 205 lbs 2016-03-09 Heart Rate 66 bpm 2016-03-09 Respiratory Rate 16 2016-03-09 BMI 34.64 kg/m2 2016-03-09 Blood pressure systolic 102 mmHg 2016-03-09 Blood pressure diastolic 68 mmHg 2016-03-09 MEDICATIONS Medication Instructions Dosage Frequency Start Date End Date Duration Status Trazodone HCl 100 MG Orally Once a day 1 tablet at bedtime as needed 24h 14 Aug, 2015 Active Abilify 2 MG Orally Once a day 1 tablet 24h Dec, Active Propranolol HCl 20 mg Orally Twice a day 1 tablet 12h Jan, Active Fexofenadine HCl 180 MG Orally Once a day 1 tablet as needed 24h Active Zanaflex 4 MG Orally every 8 hrs 1 capsule as needed 8h 07 Nov, 2015 Active Metformin HCl 500 MG 1 tablet with meals Once a day Orally Active Cymbalta 60 MG Orally Once a day 1 capsule 24h Sep, Active Clonazepam 0.5 MG Orally Twice a day for extreme anxiety 1 tablet Jan Active RESULTS Name Result Date Reference Range CBC 2016-03-09 WBC 8.5 3.4-10.8 RBC 4.57 3.77-5.28 Hemoglobin 13.8 11.1-15.9 Hematocrit 40.1 34.0-46.6 MCV 88 79-97 MCH 30.2 26.6-33.0 MCHC 34.4 31.5-35.7 RDW 14.5 12.3-15.4 Platelets 262 150-379 Neutrophils 68 Lymphs 24 Monocytes 5 Eos 1 Basos 1 Immature Cells Neutrophils (Absolute) 5.8 1.4-7.0 Lymphs (Absolute) 2.1 0.7-3.1 Monocytes(Absolute) 0.5 0.1-0.9 Eos (Absolute) 0.1 0.0-0.4 Baso (Absolute) 0.0 0.0-0.2 Immature Granulocytes 1 Immature Grans (Abs) 0.0 0.0-0.1 NRBC Hematology Comments: CMP 2016-03-09 Glucose, Serum 65 65-99 BUN 13 6-24 Creatinine, Serum 0.87 0.57-1.00 eGFR If NonAfricn Am 81 >59 eGFR If Africn Am 94 >59 BUN/Creatinine Ratio 15 9-23 Sodium, Serum 138 134-144 Potassium, Serum 4.3 3.5-5.2 Chloride, Serum 97 96-106 Carbon Dioxide, Total 27 18-29 Calcium, Serum 8.9 8.7-10.2 Protein, Total, Serum 6.7 6.0-8.5 Albumin, Serum 4.4 3.5-5.5 Globulin, Total 2.3 1.5-4.5 A/G Ratio 1.9 1.1-2.5 Bilirubin, Total 0.4 0.0-1.2 Alkaline Phosphatase, S 116 39-117 AST (SGOT) 17 0-40 ALT (SGPT) 22 0-32 PROCEDURES Procedure Date Ordered Related Diagnosis Body Site ROUTINE VENIPUNCTURE 2016-03-09 N/A COMPREHEN METABOLIC PANEL Mar 09, 2016 VENIPUNCT, ROUTINE* Mar 09, 2016 COMPLETE CBC W/AUTO DIFF WBC Mar 09, 2016 Office Visit, Est Pt., Level 3 Mar 09, 2016 IMMUNIZATIONS No Known Immunizations
--- OUTSIDE RECORDS SUMMARY | 2018-07-07 13:37 | XMS REPORT ---
Author Author ALEJANDRO DIAS Organization [employer] Address Unknown Phone Unavailable Care Team Providers Care District Sales Coordinator Name Role Phone ALEJANDRO DIAS CP Unavailable Allergies No Known Allergies Problems Problem Type Condition Code Onset Dates Condition Status Assessment Iron deficiency anemia due to chronic blood loss D50.0 Active Problem Sleep disturbance G47.9 Active Problem Iron deficiency anemia due to chronic blood loss D50.0 Active Problem Anxiety disorder, unspecified F41.9 Active Problem Dysthymia F34.1 Active Problem Hyperglycemia R73.9 Active Problem Hyperthyroidism E05.90 Active Problem High risk medication use Z79.899 Active Medications No Known Medications Procedures Procedure Coding System Code Date ASSAY OF IRON CPT-4 64116 October 20, 2015 COMPLETE CBC W/AUTO DIFF WBC CPT-4 23511 October 20, 2015 IRON BINDING TEST CPT-4 94650 October 20, 2015 VENIPUNCT, ROUTINE* CPT-4 13845 October 20, 2015 Results No Known Results Summary Purpose [employer] Submission
--- OUTSIDE RECORDS SUMMARY | 2018-07-07 13:37 | XMS REPORT ---
Author Author MARIE SOSA Organization [employer] Address Unknown Phone Unavailable Care Team Providers Care Apron Worker Name Role Phone MARIE SOSA CP Unavailable Allergies No Known Allergies Problems Problem Type Condition Code Onset Dates Condition Status Problem Hyperglycemia R73.9 Active Assessment Anxiety F41.9 Active Problem Anxiety disorder, unspecified F41.9 Active Problem Sleep disturbance G47.9 Active Problem Anxiety F41.9 Active Problem High risk medication use Z79.899 Active Problem Dysthymia F34.1 Active Problem Iron deficiency anemia due to chronic blood loss D50.0 Active Problem Hyperthyroidism E05.90 Active Medications No Known Medications Results No Known Results Summary Purpose eClinicalWorks Submission
--- OUTSIDE RECORDS SUMMARY | 2018-07-07 13:37 | XMS REPORT ---
Author Author ALEJANDRO DIAS Organization [employer] Address Unknown Phone Unavailable Care Team Providers Care Bulb Grader Name Role Phone ALEJANDRO DIAS CP Unavailable Allergies, Adverse Reactions, Alerts Substance Reaction [...] Problem High risk medication use Z79.899 Active Assessment Emotional lability R45.86 Active Problem Hyperthyroidism E05.90 Active Problem Hyperglycemia R73.9 Active Problem Iron deficiency anemia due to chronic blood loss D50.0 Active Medications Medication Code System Code Instructions Start Date End Date Status Dosage Metformin HCl [facility] 62674337242 500 MG 1 tablet with meals Once a day Orally Fexofenadine HCl [facility] [address]-39 180 MG Orally Once a day 1 tablet as needed Clonazepam [facility] [address]-63 0.5 MG Orally Once a day PRN for extreme anxiety, 30 pills must last 30 days Feb 10, 2015 1 tablet Cymbalta [facility] [address]-55 60 MG Orally Once a day October 21, 2014 1 capsule Abilify [facility] [address]-17 2 MG Orally Once a day Jan 22, 2016 1 tablet Trazodone HCl [facility] [address]-06 100 MG Orally Once a day September 09, 2015 1 tablet at bedtime as needed Zanaflex [facility] [address]-86 4 MG Orally every 8 hrs Dec 03, 2015 1 capsule as needed Procedures Procedure Coding System Code Date DRUG SCREEN NON TLC DEVICES CPT-4 94245 Jan 22, 2016 Office Visit, Est Pt., Level 3 CPT-4 75970 Jan 22, 2016 Vital Signs Date/Time: Jan 22, 2016 Cardiac Monitoring Heart Rate 77 bpm Weight 196.1 lbs Height 64.5 in BMI 33.14 Index Blood Pressure Diastolic 78 mmHg Blood Pressure Systolic 122 mmHg Results Name Result Date Reference Range Unit Abnormality Flag URINE DRUG SCREEN (IN HOUSE) ----BUP NEGATIVE 20160122 ----TCA NEGATIVE 20160122 ----MDMA NEGATIVE 20160122 ----BENZO NEGATIVE 20160122 ----OPIATE NEGATIVE 20160122 ----THC NEGATIVE 20160122 ----MTD NEGATIVE 20160122 ----AMPH NEGATIVE 20160122 ----BAR NEGATIVE 20160122 ----PCP NEGATIVE 20160122 ----MAMP NEAGATIVE 20160122 ----OXY NEGATIVE 20160122 ----Lot # [id number] ----Exp date 20160122 ----Control POSITIVE 20160122 ----COCAINE NEGATIVE 20160122 Summary Purpose eClinicalWorks Submission
--- OUTSIDE RECORDS SUMMARY | 2018-07-07 13:37 | XMS REPORT ---
Author Author ALEKS CARROLL [facility] eClinicalWorks Address Unknown Phone Unavailable Care Team Providers Care Research Epidemiologist Name Role Phone ALEKS CARROLL Unavailable Allergies [...] neoplasm of the cervix V76.2 Active Medications No Known Medications Results No Known Results Summary Purpose eClinicalWorks Submission
--- OUTSIDE RECORDS SUMMARY | 2018-07-07 13:37 | XMS REPORT ---
Author Author ALEJANDRO DIAS Organization [employer] Address Unknown Phone Unavailable Care Team Providers Care Ribbon Lap Machine Tender Name Role Phone ALEJANDRO DIAS CP Unavailable Allergies No Known Allergies Problems Problem Type Condition Code Onset Dates Condition Status Problem Hyperthyroidism E05.90 Active Problem High risk medication use Z79.899 Active Problem Iron deficiency anemia due to chronic blood loss D50.0 Active Problem Dysthymia F34.1 Active Problem Hyperglycemia R73.9 Active Medications No Known Medications Results No Known Results Summary Purpose eClinicalWorks Submission
--- OUTSIDE RECORDS SUMMARY | 2018-07-07 13:37 | XMS REPORT ---
Author Author ALEJANDRO DIAS Organization [employer] Address Unknown Phone Unavailable Care Team Providers Care Financial Internship Name Role Phone ALEJANDRO DIAS CP Unavailable Allergies, Adverse Reactions, Alerts Substance Reaction Event Type N.K.D.A. Info Not Available Non Drug Allergy Problems Problem Type Condition Code Onset Dates Condition Status Assessment Sleep disturbance G47.9 Active Problem Iron deficiency anemia due to chronic blood loss D50.0 Active Problem Hyperthyroidism E05.90 Active Problem Sleep disturbance G47.9 Active Problem Hyperglycemia R73.9 Active Assessment High risk medication use Z79.899 Active Problem High risk medication use Z79.899 Active Problem Dysthymia F34.1 Active Medications Medication Code System Code Instructions Start Date End Date Status Dosage Clonazepam [facility] [address]-93 0.5 MG Orally Once a day PRN for extreme anxiety Feb 10, 2015 1 tablet Metformin HCl [facility] [address]-15 500 MG Orally Once a day Mar 17, 2015 1 tablet with meals Iron [facility] [address]-09887 28 MG Orally Once a day 1 tablet Cymbalta [facility] [address]-51 60 MG Orally Once a day October 21, 2014 1 capsule Docusate Sodium [facility] [address]-73 100 MG Orally Once a day 1 capsule as needed Trazodone HCl [facility] [address]-91 100 MG Orally Once a day September 09, 2015 1 tablet at bedtime as needed Procedures Procedure Coding System Code Date Office Visit, Est Pt., Level 3 CPT-4 06817 October 08, 2015 Vital Signs Date/Time: October 08, 2015 Cardiac Monitoring Heart Rate 89 bpm Weight 195.1 lbs Height 64.5 in Blood Pressure Diastolic 56 mmHg Blood Pressure Systolic 102 mmHg Results No Known Results Summary Purpose eClinicalWorks Submission
--- OUTSIDE RECORDS SUMMARY | 2018-07-07 13:37 | XMS REPORT ---
Author Author ALEJANDRO DIAS Organization [employer] Address Unknown Phone Unavailable Care Team Providers Care Risk Consultant Name Role Phone ALEJANDRO DIAS CP Unavailable Allergies No Known Allergies Problems Problem Type Condition Code Onset Dates Condition Status Problem Sleep disturbance G47.9 Active Problem Iron deficiency anemia due to chronic blood loss D50.0 Active Problem Anxiety disorder, unspecified F41.9 Active Problem Dysthymia F34.1 Active Problem Hyperglycemia R73.9 Active Problem Hyperthyroidism E05.90 Active Problem High risk medication use Z79.899 Active Medications Medication Code System Code Instructions Start Date End Date Status Dosage Clonazepam [facility] [address]-90 0.5 MG Orally Once a day PRN for extreme anxiety Feb 10, 2015 1 tablet Results No Known Results Summary Purpose eClinicalWorks Submission
--- OUTSIDE RECORDS SUMMARY | 2018-07-07 13:37 | XMS REPORT ---
Author Author ALEJANDRO DIAS [facility] eClinicalWorks Address Unknown Phone Unavailable Care Team Providers Care Project Engineering Manager Name Role Phone ALEJANDRO DIAS CP Unavailable [...] anxiety F41.8 Active Problem Anxiety F41.9 Active Assessment Anxiety associated with depression F41.8 Active Problem Dysthymia F34.1 Active Problem High risk medication use Z79.899 Active Assessment High risk medication use Z79.899 Active Problem Hyperthyroidism E05.90 Active Problem Hyperglycemia R73.9 Active Problem Iron deficiency anemia due to chronic blood loss D50.0 Active Medications Medication Code System Code Instructions Start Date End Date Status Dosage Zanaflex [facility] [address]-50 4 MG Orally every 8 hrs Dec 03, 2015 1 capsule as needed Metformin HCl [facility] 36277921077 500 MG 1 tablet with meals Once a day Orally Trazodone HCl [facility] [address]-88 100 MG Orally Once a day September 09, 2015 1 tablet at bedtime as needed Propranolol HCl [facility] [address]-58 20 mg Orally Twice a day Feb 11, 2016 1 tablet Clonazepam [facility] [address]-10 0.5 MG Orally Twice a day for extreme anxiety Feb 10, 2015 1 tablet Cymbalta [facility] [address]-14 60 MG Orally Once a day October 21, 2014 1 capsule Fexofenadine HCl [facility] [address]-72 180 MG Orally Once a day 1 tablet as needed Torsten [facility] [address]-83 2 MG Orally Once a day Jan 22, 2016 1 tablet Procedures Procedure Coding System Code Date Office Visit, Est Pt., Level 3 CPT-4 91987 Feb 10, 2016 Vital Signs Date/Time: Feb 10, 2016 Cardiac Monitoring Heart Rate 88 bpm Weight 198.8 lbs Height 64.5 in BMI 33.59 Index Blood Pressure Diastolic 76 mmHg Blood Pressure Systolic 106 mmHg Results No Known Results Summary Purpose eClinicalWorks Submission
--- OUTSIDE RECORDS SUMMARY | 2018-07-07 13:37 | XMS REPORT ---
Author Author [facility] Address [address] [place] [address] Care Team Providers Care Oracle Erp Architect Name Role Phone ALEJANDRO DIAS Unavailable PROBLEMS Type Condition ICD9-CM Code [id number] Code Onset Dates Condition Status SNOMED Code Problem Iron deficiency anemia due to chronic blood loss D50.0 Active 46047740 Problem Anxiety disorder, unspecified F41.9 Active 012395840 Problem Sleep disturbance G47.9 Active 98187189 Problem Hyperglycemia R73.9 Active 52670234 Problem Dysthymia F34.1 Active 46987751 Problem High risk medication use Z79.899 Active 767215893 Problem Hyperthyroidism E05.90 Active 86087675 Problem Persistent mood [affective] disorder, unspecified F34.9 Active 51178166 Problem Depression with anxiety F41.8 Active 504619609 Problem Other chronic pain G89.29 Active 84510464 Problem B union_ , 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
--- OUTSIDE RECORDS SUMMARY | 2018-07-07 13:37 | XMS REPORT ---
Author Author MARIE SOSA [facility] eClinicalWorks Address Unknown Phone Unavailable Care Team Providers Care Professor Of Musicology Name Role Phone MARIE SOSA CP Unavailable [...] High risk medication use Z79.899 Active Assessment Anxiety F41.9 Active Problem Hyperthyroidism E05.90 Active Problem Hyperglycemia R73.9 Active Problem Iron deficiency anemia due to chronic blood loss D50.0 Active Medications No Known Medications Procedures Procedure Coding System Code Date Psychotherapy, patient &/family, 30 minutes, established patient CPT-4 11822 Feb 02, 2016 Results No Known Results Summary Purpose eClinicalWorks Submission
--- OUTSIDE RECORDS SUMMARY | 2018-07-07 13:38 | XMS REPORT ---
Author Author ALEKS CARROLL [employer] Address Unknown Phone Unavailable Care Team Providers Care Slubber Frame Changer Name Role Phone ALEKS CARROLL Unavailable Allergies, [...] and of unspecified site 079.4 Active Problem Special screening examination, human papillomavirus [HPV] V73.81 Active Problem Unspecified breast screening V76.10 Active Problem Acute bronchitis 466.0 Active Problem Unspecified symptom associated with female genital organs 625.9 Active Problem Metrorrhagia 626.6 Active Problem Screening examination for venereal disease V74.5 Active Problem Screening for malignant neoplasm of the cervix V76.2 Active Assessment Breast cancer screening Z12.39 Active Assessment Encounter for Papanicolaou smear for cervical cancer screening Z12.4 Active Assessment Routine gynecological examination V72.31 Active Problem Dermatophytosis of the body 110.5 Active Medications Medication Code System Code Instructions Start Date End Date Status Dosage Prozac [facility] [address]-62 10 MG Orally Once a day Feb 10, 2015 1 capsule in the morning Clonazepam [facility] [address]-22 0.5 MG Orally Once a day PRN Feb 10, 2015 1 tablet Abilify [facility] [address]-32 5 MG Orally Once a day Feb 10, 2015 1 tablet Cymbalta [facility] [address]-59 30 MG Orally Twice a day October 21, 2014 1 capsule Procedures Procedure Coding System Code Date CULTURE, BACTERIA, OTHER CPT-4 12839 Feb 17, 2015 SPECIMEN HANDLING CPT-4 89147 Feb 17, 2015 No Charge CPT-4 90649 Feb 17, 2015 Preventive Care Est Pt. Age 40-64 CPT-4 84316 Feb 17, 2015 TRICHOMONAS VAGIN, DIR PROBE CPT-4 35957 Feb 17, 2015 Vital Signs Date/Time: Feb 17, 2015 Temperature 97.3 F Weight 200.1 lbs Height 64.5 in BMI 33.81 Index Blood Pressure Diastolic 80 mmHg Blood Pressure Systolic 123 mmHg Cardiac Monitoring Heart Rate 78 bpm Results Name Result Date Reference Range Unit Abnormality Flag TRICHOMONAS (IN HOUSE) Summary Purpose eClinicalWorks Submission
--- OUTSIDE RECORDS SUMMARY | 2018-07-07 13:38 | XMS REPORT ---
Author Author MARIE SOSA [facility] eClinicalWorks Address Unknown Phone Unavailable Care Team Providers Care Welcome Wagon Hostess Name Role Phone MARIE SOSA CP Unavailable [...] Anxiety F41.9 Active Problem Hyperthyroidism E05.90 Active Medications No Known Medications Procedures Procedure Coding System Code Date Psychotherapy, patient &/family, 30 minutes, established patient CPT-4 65642 Jan 19, 2016 Results No Known Results Summary Purpose eClinicalWorks Submission
--- OUTSIDE RECORDS SUMMARY | 2018-07-07 13:38 | XMS REPORT ---
Author Author ALEJANDRO DIAS [facility] Address [address] [place] [address] Care Team Providers Care Textbook Associate Name Role Phone ALEJANDRO DIAS Unavailable PROBLEMS Type Condition ICD9-CM Code [id number] Code Onset Dates Condition Status SNOMED Code Problem Lumbago with sciatica, left side M54.42 Active 863542409 Problem Depression with anxiety F41.8 Active 345009059 Problem Anxiety F41.9 Active 54627969 Problem History of abnormal cervical Pap smear Z87.898 Active 797916614 Problem Breast cancer screening Z12.31 Active 341018431 Problem Anxiety associated with depression F41.8 Active 011886153 Problem Persistent mood [affective] disorder, unspecified F34.9 Active 45730241 Problem Colon cancer screening Z12.11 Active 869190856 Problem Emotional lability R45.86 Active 35756930 Problem Dysthymia F34.1 Active 33030844 Problem High risk medication use Z79.899 Active 936966986 Problem Hyperglycemia R73.9 Active 48031967 Problem Sleep disturbance G47.9 Active 49346264 Problem Anxiety disorder, unspecified F41.9 Active 668782803 Problem Hyperthyroidism E05.90 Active 06166576 Problem B union_ , 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
--- OUTSIDE RECORDS SUMMARY | 2018-07-07 13:38 | XMS REPORT ---
Author Author MARIE SOSA Organization [facility] Address Unknown Phone Unavailable Care Team Providers Care Chemical Engineer Name Role Phone MARIE SOSA Unavailable Unavailable PROBLEMS Type Condition ICD9-CM Code [id number] Code Onset Dates Condition Status SNOMED Code Problem Hyperthyroidism E05.90 Active 91472010 Problem Sleep disturbance G47.9 Active 44909855 Problem Iron deficiency anemia due to chronic blood loss D50.0 Active 41301948 Assessment Depression with anxiety F41.8 07 Nov, 2015 Active 638239648 Problem Hyperglycemia R73.9 Active 59684759 Problem Dysthymia F34.1 Active 53922042 Problem High risk medication use Z79.899 Active 625766780 Problem Depression with anxiety F41.8 Active 937323029 Problem Anxiety F41.9 Active 85880339 Problem B union_ , 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
--- OUTSIDE RECORDS SUMMARY | 2018-07-07 13:38 | XMS REPORT ---
Author Author ALEJANDRO DIAS Organization eClinicalWorks Address Unknown Phone Unavailable Care Team Providers Care Plant Culture Manager Name Role Phone ALEJANDRO DIAS CP Unavailable Allergies, Adverse Reactions, Alerts Substance Reaction Event Type N.K.D.A. Info Not Available Non Drug Allergy Problems Problem Type Condition Code Onset Dates Condition Status Assessment Venous insufficiency I87.2 Active Assessment High risk medication use Z79.899 Active Assessment Dysthymia F34.1 Active Problem Sleep disturbance G47.9 Active Problem Iron deficiency anemia due to chronic blood loss D50.0 Active Problem Anxiety disorder, unspecified F41.9 Active Problem Dysthymia F34.1 Active Problem Hyperglycemia R73.9 Active Problem Hyperthyroidism E05.90 Active Problem High risk medication use Z79.899 Active Medications Medication Code System Code Instructions Start Date End Date Status Dosage Clonazepam [facility] [address]-77 0.5 MG Orally Once a day PRN for extreme anxiety Feb 10, 2015 1 tablet Cymbalta [facility] [address]-38 60 MG Orally Once a day October 21, 2014 1 capsule Iron [facility] [address]997 325 (65 Fe) MG Orally Once a day 1 tablet Metformin HCl [facility] [address]-83 500 MG Orally Once a day Mar 17, 2015 1 tablet with meals Trazodone HCl [facility] [address]-33 100 MG Orally Once a day September 09, 2015 1 tablet at bedtime as needed Procedures Procedure Coding System Code Date Office Visit, Est Pt., Level 3 CPT-4 94216 Nov 19, 2015 Vital Signs Date/Time: Nov 19, 2015 Cardiac Monitoring Heart Rate 90 bpm Weight 194.2 lbs Height 64.5 in BMI 32.82 Index Blood Pressure Diastolic 78 mmHg Blood Pressure Systolic 102 mmHg Results No Known Results Summary Purpose eClinicalWorks Submission
--- OUTSIDE RECORDS SUMMARY | 2018-07-07 13:38 | XMS REPORT ---
Author Author ALEJANDRO DIAS [facility] Address [address] [place] [address] Care Team Providers Care Diet Supervisor Name Role Phone ALEJANDRO DIAS Unavailable PROBLEMS Type Condition ICD9-CM Code DGM02-KG Code Onset Dates Condition Status SNOMED Code Problem Persistent mood [affective] disorder, unspecified F34.9 Active 06464920 Problem Emotional lability R45.86 Active 05161117 Problem Anxiety associated with depression F41.8 Active 682169557 Problem Obesity (BMI 35.0-39.9 without comorbidity) E66.9 Active 709863023 Problem Dysthymia F34.1 Active 70702578 Problem Menorrhagia with regular cycle N92.0 Active 442775567 Problem High risk medication use Z79.899 Active 520161113 Problem Colon cancer screening Z12.11 Active 686519212 Problem Breast cancer screening Z12.31 Active 667445172 Problem Venous insufficiency I87.2 Active 04329406 Problem History of abnormal cervical Pap smear Z87.898 Active 463783693 Problem Hyperthyroidism E05.90 Active 80450635 Problem Sleep disturbance G47.9 Active 05142393 Problem Hyperglycemia R73.9 Active 01591189 Problem Iron deficiency anemia due to chronic blood loss D50.0 Active 11427912 Problem Lumbago with sciatica, left side M54.42 Active 664297958 Problem Other chronic pain G89.29 Active 00634623 Problem Anxiety disorder, unspecified F41.9 Active 504513444 Problem Anxiety F41.9 Active 75373470 Problem B union_ , 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 864523336 Problem Depression with anxiety F41.8 Active 825264258 ALLERGIES No Information ENCOUNTERS Encounter Location Date Diagnosis [address] [id number] [place] [id number] Apr, Influenza J11.[address] [id number][place] [id number] Jan, [facility] [address] [id number][place] [id number] Jan, Venous insufficiency I87.2 and Obesity (BMI 35.0-39.9 without comorbidity) E66.9 [facility] [address] [address] [id number], [place] [id number] Dec, High risk medication use Z79.899 ; Hyperglycemia R73.9 ; Hyperthyroidism E05.90 ; Iron deficiency anemia due to chronic blood loss D50.0 and Menorrhagia with regular cycle N92.[address] [facility] [address] [id number][place] [id number] Nov, [facility] [address] [address] [id number][place] [id number] Nov, [facility] [address] [id number][place] [id number] Nov, High risk medication use Z79.899 ; Dysthymia F34.1 and Venous insufficiency I87.[address] [facility] [address] [address] [id number][place] [id number] Sep, [facility] [address] [id number][place] [address] Sep, History of abnormal cervical Pap smear Z87.898 ; Breast cancer screening Z12.31 and Colon cancer screening Z12.[address] [id number] [place] [id number] Jun, [facility] [address] [id number][place] [id number] Apr, [facility] [address] [address] [id number][place] [id number] Apr, High risk medication use Z79.899 ; Dysthymia F34.1 and Hyperglycemia R73.9 [facility] [address] [address] [id number], [place] [id number] Feb, [facility] [address] [address] [id number] [place] [id number] Feb, Anxiety associated with depression F41.[address] [facility] [address] [id number] [place] [id number] Feb, [facility] [address] [id number] [place] [id number] Jan, [facility] [address] [address] [id number], [place] [id number] Jan, [facility] [address] [address] [id number], [place] [address] Jan, High risk medication use Z79.899 and Anxiety associated with depression F41.[address] [facility] [address] [id number][place] [id number] Jan, Anxiety F41.[address] [facility] [address] [id number], [place] [id number] Dec, Emotional lability R45.[address] [facility] [address] [id number], [place] [id number] Dec, Anxiety F41.[address] [facility] [address] [id number], [place] [id number] Dec, [facility] [address] [id number], [place] [id number] Dec, Anxiety associated with depression F41.[address] [facility] [address] [id number], [place] [id number] Dec, [facility] [address] [address] [id number], [place] [id number] Dec, Persistent mood [affective] disorder, unspecified F34.[address] [facility] [address] [id number], [place] [id number] Nov, Hyperthyroidism E05.[address] [facility] [address] [id number], [place] [id number] Nov, Hyperthyroidism E05.90 [facility] [address] [id number], [place] [id number] Nov, [facility] [address] [id number], [place] [address] Nov, Hyperglycemia R73.9 ; Lumbago with sciatica, left side M54.42 ; Other chronic pain G89.29 and B union_ , 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 [facility] [address] [id number], [place] [id number] Nov, Depression with anxiety F41.8 [facility] [address] [id number], [place] [id number] Oct, High risk medication use Z79.899 ; Dysthymia F34.1 and Venous insufficiency I87.[address] [facility] [address] [id number], [place] [id number] Oct, Anxiety F41.9 [facility] [address] [id number], [place] [id number] Oct, [facility] [address] [id number], [place] [id number] Sep, Iron deficiency anemia due to chronic blood loss D50.0 [facility] [address] [id number], [place] [id number] Sep, High risk medication use Z79.899 and Sleep disturbance G47.9 [facility] [address] [id number], [place] [id number] Sep, Anxiety disorder, unspecified F41.9 [facility] [address] [id number], [place] [id number] Aug, [facility] [address] [id number], [place] [id number] Aug, Iron deficiency anemia due to chronic blood loss D50.0 and Hyperthyroidism E05.90 [facility] [address] [id number], [place] [id number] Aug, Hyperthyroidism E05.90 [facility] [address] [facility] [address] [id number], [place] [id number] Aug, Hyperglycemia R73.9 [facility] [address] [facility] [id number], [place] [id number] Aug, High risk medication use Z79.899 ; Dysthymia F34.1 and Hyperglycemia R73.9 [facility] [address]00565[address] [id number] Jun, [facility] [place] [id number] [place] [id number] May, Menorrhagia with regular cycle N92.0 ; Dysmenorrhea N94.6 and Tendonitis M77.9 [facility] [address] [place] [address] [id number] May, Blood glucose elevated R73.9 [facility] [address] [place] [address] [id number] May, [facility] [place] [address] [place] [id number] [place] [address] [id number] May, Menorrhagia with regular cycle N92.0 and Dysmenorrhea N94.6 [facility] [address] [place] [address] [id number] Apr, Painful menstrual periods N94.6 ; Menorrhagia with regular cycle N92.0 and Depression with anxiety F41.8 [facility] [address]65[address] [id number] Apr, [facility] [place] [id number] [place] [address] [id number] Feb, Plantar wart B07.0 [facility] [place] [id number] [place] [address] [id number] Feb, [facility] [place] [id number] [place] [address] [id number] Feb, Blood glucose elevated R73.9 and Lumbar radiculopathy M54.16 [facility] [id number] [id number] Feb, Low grade squamous intraepithelial lesion (LGSIL) on Papanicolaou smear of cervix R87.612 [facility] [address] [place] [address] [id number] Feb, [facility] [address] [id number], [place] [id number] Jan, [facility] [address] [id number], [place] [id number] Jan, [place] [id number] [place] [address] [id number] Jan, [place] [id number] [place] [address] [id number] Jan, Routine gynecological examination V72.31 ; Encounter for Papanicolaou smear for cervical cancer screening Z12.4 and Breast cancer screening Z12.39 [place] [id number] [place] [address] [id number] Jan, Depression with anxiety F41.8 [place] [id number] [place] [address] [id number] Dec, Follow up V67.9 [place] [id number] [place] [address] [id number] Oct, Follow up V67.9 [place] [id number] [place] [address] [id number] Sep, Major depression, recurrent 296.30 [facility] [address] [place] [id number] [place] [address] Jun, [facility] [address] [id number] [place] [address] Jun, [place] [id number] [place] [address] [id number] Feb, [facility] [id number] [place] [address] Feb, [address] [place] [address] [id number] Jan, [facility] [address]00565100[place], [place] [address] Jan, [facility] [id number][place] [id number] Dec, [facility] [address]00565100[place], [place] [address] Dec, [facility] [id number], [place] [id number] Dec, [facility] [address]00565100[place], [place] [address] Dec, [facility] [id number] [place] [address] [id number] Nov, [facility] [address]00565100[place] [address] Nov, [facility] [id number], [place] [id number] Nov, [facility] [address]65100[place], [place] [address] Nov, [facility] [address] [place] [id number] [id number] Nov, [facility] [address]65100[place], [place] [address] Nov, [facility] [address]65100[place], [place] [address] Nov, [facility] [address]65100[place], [place] [address] Nov, [facility] [address] [place] [id number] [id number] Nov, [facility] [address]00565100[place] [address] Nov, IMMUNIZATIONS No Known Immunizations SOCIAL HISTORY Never Assessed REASON FOR VISIT mammo results PLAN OF CARE VITAL SIGNS MEDICATIONS No Known Medications RESULTS No Results PROCEDURES No Known [...]
--- OUTSIDE RECORDS SUMMARY | 2018-07-07 13:38 | XMS REPORT ---
Author Author ALEKS CARROLL [employer] Address Unknown Phone Unavailable Care Team Providers Care Nurse Special Name Role Phone ALEKS CARROLL Unavailable Allergies, [...] and of unspecified site 079.4 Active Assessment Low grade squamous intraepithelial lesion (LGSIL) on Papanicolaou smear of cervix R87.612 Active Problem Dermatophytosis of the body 110.5 [...] Instructions Start Date End Date Status Dosage Cymbalta [facility] [address]-32 30 MG Orally Twice a day October 21, 2014 1 capsule Prozac [facility] [address]-17 10 MG Orally Once a day Feb 10, 2015 1 capsule in the morning Clonazepam [facility] [address]-91 0.5 MG Orally Once a day PRN Feb 10, 2015 1 tablet Abilify [facility] [address]-19 5 MG Orally Once a day Feb 10, 2015 1 tablet Procedures Procedure Coding System Code Date BIOPSY OF CERVIX W/SCOPE CPT-4 08371 Mar 12, 2015 URINE TEST CPT-4 26179 Mar 12, 2015 Vital Signs Date/Time: Mar 12, 2015 Temperature 97.6 F Weight 200.0 lbs Height 64.5 in BMI 33.80 Index Blood Pressure Diastolic 80 mmHg Blood Pressure Systolic 120 mmHg Cardiac Monitoring Heart Rate 76 bpm Results No Known Results Summary Purpose [employer] Submission
--- OUTSIDE RECORDS SUMMARY | 2018-07-07 13:39 | XMS REPORT ---
Author Author ALEKS CARROLL [facility] [employer] Address Unknown Phone Unavailable Care Team Providers Care Media Production Support Manager Name Role Phone ALEKS CARROLL Unavailable Allergies [...] Instructions Start Date End Date Status Dosage Doxycycline Hyclate [facility] [address]-39 100 MG Orally 2 times a day Mar 19, 2015 Mar 26, 2015 1 capsule Results No Known Results Summary Purpose [employer] Submission
--- OUTSIDE RECORDS SUMMARY | 2018-07-07 13:39 | XMS REPORT ---
Author Author ALEJANDRO DIAS Organization [employer] Address Unknown Phone Unavailable Care Team Providers Care Pillow Cleaner Name Role Phone ALEJANDRO DIAS CP Unavailable [...]
--- OUTSIDE RECORDS SUMMARY | 2018-07-07 13:39 | XMS REPORT ---
Author Author ALEJANDRO DIAS [facility] Address [address] [place] [address] Care Team Providers Care Marine Machinist Name Role Phone ALEJANDRO DIAS Unavailable PROBLEMS Type Condition ICD9-CM Code BIA19-LD Code Onset Dates Condition Status SNOMED Code Problem Persistent mood [affective] disorder, unspecified F34.9 Active 02194707 Problem Emotional lability R45.86 Active 36618931 Problem Anxiety associated with depression F41.8 Active 418879100 Problem Obesity (BMI 35.0-39.9 without comorbidity) E66.9 Active 269224711 Problem Dysthymia F34.1 Active 80963002 Problem Menorrhagia with regular cycle N92.0 Active 477266542 Problem High risk medication use Z79.899 Active 724521623 Problem Colon cancer screening Z12.11 Active 296685619 Problem Breast cancer screening Z12.31 Active 836319275 Problem Venous insufficiency I87.2 Active 70048702 Problem History of abnormal cervical Pap smear Z87.898 Active 697955570 Problem Hyperthyroidism E05.90 Active 96976659 Problem Sleep disturbance G47.9 Active 77219840 Problem Hyperglycemia R73.9 Active 76195797 Problem Iron deficiency anemia due to chronic blood loss D50.0 Active 60087817 Problem Lumbago with sciatica, left side M54.42 Active 101259546 Problem Other chronic pain G89.29 Active 55999897 Problem Anxiety disorder, unspecified F41.9 Active 900489495 Problem Anxiety F41.9 Active 34821723 Problem B union_ , 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 631720223 Problem Depression with anxiety F41.8 Active 338141088 ALLERGIES No Known Allergies ENCOUNTERS Encounter Location Date Diagnosis [address] [id number] [place] [id number] Apr, Influenza J11.[address] [id number][place] [id number] Jan, [facility] [address] [id number][place] [id number] Jan, Venous insufficiency I87.2 and Obesity (BMI 35.0-39.9 without comorbidity) E66.9 [facility] [address] [id number][place] [id number] Dec, High risk medication use Z79.899 ; Hyperglycemia R73.9 ; Hyperthyroidism E05.90 ; Iron deficiency anemia due to chronic blood loss D50.0 and Menorrhagia with regular cycle N92.0 [facility] [address] [id number], [place] [id number] Nov, [facility] [address] [id number][place] [id number] Nov, [facility] [address] [id number], [place] [address] Nov, High risk medication use Z79.899 ; Dysthymia F34.1 and Venous insufficiency I87.2 [facility] [address] [id number][place] [id number] Sep, [facility] [address] [id number][place] [id number] Sep, History of abnormal cervical Pap smear Z87.898 ; Breast cancer screening Z12.31 and Colon cancer screening Z12.[address] [id number] [place] [id number] Jun, [facility] [address] [id number][place] [id number] Apr, [facility] [address] [id number][place] [id number] Apr, High risk medication use Z79.899 ; Dysthymia F34.1 and Hyperglycemia R73.9 [facility] [address] [id number], [place] [id number] Feb, [facility] [address] [id number] [place] [id number] Feb, Anxiety associated with depression F41.[address] [facility] [address] [id number] [place] [id number] Feb, [facility] [address] [id number] [place] [id number] Jan, [facility] [address] [id number] [place] [id number] Jan, [facility] [address] [id number], [place] [address] Jan, High risk medication use Z79.899 and Anxiety associated with depression F41.[address] [facility] [address] [id number], [place] [id number] Jan, Anxiety F41.[address] [facility] [address] [id number], [place] [id number] Dec, Emotional lability R45.[address] [facility] [address] [id number], [place] [id number] Dec, Anxiety F41.[address] [facility] [address] [id number], [place] [id number] Dec, [facility] [address] [id number], [place] [id number] Dec, Anxiety associated with depression F41.[address] [facility] [address] [id number], [place] [id number] Dec, [facility] [address] [id number], [place] [id number] Dec, Persistent mood [affective] disorder, unspecified F34.[address] [facility] [address] [id number], [place] [id number] Nov, Hyperthyroidism E05.[address] [facility] [address] [id number], [place] [id number] Nov, Hyperthyroidism E05.90 [facility] [address] [id number], [place] [id number] Nov, [facility] [address] [id number], [place] [id number] Nov, Hyperglycemia R73.9 ; Lumbago with sciatica, left side M54.42 ; Other chronic pain G89.29 and B union_ , 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 [facility] [address] [id number], [place] [id number] Nov, Depression with anxiety F41.8 [facility] [address] [id number], [place] [id number] Oct, High risk medication use Z79.899 ; Dysthymia F34.1 and Venous insufficiency I87.2 [facility] [address] [id number], [place] [id number] Oct, Anxiety F41.9 [facility] [address] [id number], [place] [id number] Oct, [facility] [address] [id number], [place] [id number] Sep, Iron deficiency anemia due to chronic blood loss D50.0 [facility] [address] [id number], [place] [id number] Sep, High risk medication use Z79.899 and Sleep disturbance G47.9 [facility] [address] [id number], [place] [id number] Sep, Anxiety disorder, unspecified F41.9 [facility] [address] [id number], [place] [id number] Aug, [facility] [address] [id number], [place] [id number] Aug, Iron deficiency anemia due to chronic blood loss D50.0 and Hyperthyroidism E05.90 [facility] [address] [id number], [place] [id number] Aug, Hyperthyroidism E05.90 [facility] [address] [facility] [address] [id number], [place] [id number] Aug, Hyperglycemia R73.9 [facility] [address] [facility] [address] [id number], [place] [id number] Aug, High risk medication use Z79.899 ; Dysthymia F34.1 and Hyperglycemia R73.9 [facility] [address]00565100[place] [id number] Jun, [facility] [place] [id number] [place] [id number] May, Menorrhagia with regular cycle N92.0 ; Dysmenorrhea N94.6 and Tendonitis M77.9 [facility] [address] [place] [id number] May, Blood glucose elevated R73.9 [facility] [address] [place] [address] [id number] May, [facility] [place] [id number] [place] [id number] May, Menorrhagia with regular cycle N92.0 and Dysmenorrhea N94.6 [facility] [address] [place] [address] [id number] Apr, Painful menstrual periods N94.6 ; Menorrhagia with regular cycle N92.0 and Depression with anxiety F41.8 [facility] [address]65100[place] [id number] Apr, [facility] [address] [place] [id number] Feb, Plantar wart B07.0 [facility] [address] [place] [id number] Feb, [facility] [place] [id number] [place] [id number] Feb, Blood glucose elevated R73.9 and Lumbar radiculopathy M54.16 [facility] [place] [id number] [id number] Feb, Low grade squamous intraepithelial lesion (LGSIL) on Papanicolaou smear of cervix R87.612 [address] [place] [id number] Feb, [facility] [address] [id number], [place] [id number] Jan, [facility] [address] [id number], [place] [id number] Jan, [place] [id number] [place] [id number] Jan, [address] [place] [address] [id number] Jan, Routine gynecological examination V72.31 ; Encounter for Papanicolaou smear for cervical cancer screening Z12.4 and Breast cancer screening Z12.39 [place] [id number] [place] [id number] Jan, Depression with anxiety F41.[address] [place] [address] [id number] Dec, Follow up V67.9 [place] [id number] [place] [id number] Oct, Follow up V67.9 [address] [place] [address] [id number] Sep, Major depression, recurrent 296.30 [facility] [address] [id number] [place] [address] Jun, [facility] [id number] [place] [phone] Jun, [place] [id number] [place] [id number] Feb, [facility] [id number] [place] [phone] Feb, [address] [place] [address] [id number] Jan, [facility] [address]65100[place], [place] [address] Jan, [facility] [id number], [place] [id number] Dec, [facility] [address]65100[place], [place] [address] Dec, [facility] [id number], [place] [id number] Dec, [facility] [address]65100[place], [place] [address] Dec, [facility] [id number] [place] [id number] Nov, [facility] [address] [id number], [place] [address] Nov, [facility] [id number], [place] [id number] Nov, [facility] [address]65100[place] [id number] Nov, [facility] [address] [place] [id number][place] [id number] Nov, [facility] [address]65100[place], [place] [address] Nov, [facility] [address]65100[place], [place] [address] Nov, [facility] [address]65100[place] [address] Nov, [facility] [address] [place] [id number], [place] [id number] Nov, [facility] [address] [id number] [address] Nov, IMMUNIZATIONS No Known Immunizations SOCIAL HISTORY Never Assessed REASON FOR VISIT Anxiety BFERRISMA PLAN OF CARE Activity Details Follow Up 4 Months Reason:anxiety VITAL SIGNS Height 64.5 in 2016-12-07 Weight 219.2 lbs 2016-12-07 Temperature 97.8 degrees Fahrenheit 2016-12-07 Heart Rate 78 bpm 2016-12-07 Respiratory Rate 18 2016-12-07 BMI 37.04 kg/m2 2016-12-07 Blood pressure systolic 102 mmHg 2016-12-07 Blood pressure diastolic 70 mmHg 2016-12-07 MEDICATIONS Medication Instructions Dosage Frequency Start Date End Date Duration Status Cymbalta 60 mg Orally Once a day 1 capsule 24h Sep, 0 days Active Propranolol HCl 20 mg Orally Twice a day 1 tablet 12h Jan, Active Metformin HCl 500 MG Orally Once a day 1 tablet with meals 24h 0 days Active Fexofenadine HCl 180 MG Orally Once a day 1 tablet as needed 24h Active Abilify 2 MG Orally Once a day 1 tablet 24h Dec, 0 days Active Clonazepam 0.5 MG Orally Twice a day for extreme anxiety 1 tablet Jan Active Hydrochlorothiazide 12.5 MG Orally Once a day 1 capsule in the morning 24h Nov, Active Zanaflex 4 MG Orally every 8 hrs 1 capsule as needed 8h 07 Nov, 2015 Active RESULTS No Results PROCEDURES No [...]
--- OUTSIDE RECORDS SUMMARY | 2018-07-07 13:39 | XMS REPORT ---
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
--- OUTSIDE RECORDS SUMMARY | 2018-07-07 13:39 | XMS REPORT ---
Author Author ALEJANDRO DIAS [facility] Address [address] [place] [address] Care Team Providers Care Process Control Manager Name Role Phone ALEJANDRO DIAS Unavailable PROBLEMS Type Condition ICD9-CM Code ZPD42-ZC Code Onset Dates Condition Status SNOMED Code Problem Persistent mood [affective] disorder, unspecified F34.9 Active 47720332 Problem Emotional lability R45.86 Active 96243467 Problem Anxiety associated with depression F41.8 Active 638539745 Problem Obesity (BMI 35.0-39.9 without comorbidity) E66.9 Active 581475144 Problem Dysthymia F34.1 Active 83055181 Problem Menorrhagia with regular cycle N92.0 Active 452568078 Problem High risk medication use Z79.899 Active 830507891 Problem Colon cancer screening Z12.11 Active 584870961 Problem Breast cancer screening Z12.31 Active 843171455 Problem Venous insufficiency I87.2 Active 91427728 Problem History of abnormal cervical Pap smear Z87.898 Active 149905594 Problem Hyperthyroidism E05.90 Active 08953541 Problem Sleep disturbance G47.9 Active 32805311 Problem Hyperglycemia R73.9 Active 80094044 Problem Iron deficiency anemia due to chronic blood loss D50.0 Active 62952050 Problem Lumbago with sciatica, left side M54.42 Active 853439308 Problem Other chronic pain G89.29 Active 92432081 Problem Anxiety disorder, unspecified F41.9 Active 667961145 Problem Anxiety F41.9 Active 64191802 Problem B union_ , 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 178093540 Problem Depression with anxiety F41.8 Active 869589355 ALLERGIES No Information ENCOUNTERS Encounter Location Date Diagnosis [address] [id number] [place] [id number] Apr, Influenza J11.[address] [id number][place] [id number] Jan, [facility] [address] [id number], [place] [id number] Jan, Venous insufficiency I87.2 and Obesity (BMI 35.0-39.9 without comorbidity) E66.9 [facility] [address] [id number][place] [id number] Dec, High risk medication use Z79.899 ; Hyperglycemia R73.9 ; Hyperthyroidism E05.90 ; Iron deficiency anemia due to chronic blood loss D50.0 and Menorrhagia with regular cycle N92.[address] [facility] [address] [id number], [place] [id number] Nov, [facility] [address] [id number], [place] [id number] Nov, [facility] [address] [id number], [place] [id number] Nov, High risk medication use Z79.899 ; Dysthymia F34.1 and Venous insufficiency I87.2 [facility] [address] [id number], [place] [id number] Sep, [facility] [address] [id number], [place] [id number] Sep, History of abnormal cervical Pap smear Z87.898 ; Breast cancer screening Z12.31 and Colon cancer screening Z12.[address] [id number] [place] [id number] Jun, [facility] [address] [id number], [place] [id number] Apr, [facility] [address] [id number], [place] [id number] Apr, High risk medication use Z79.899 ; Dysthymia F34.1 and Hyperglycemia R73.9 [facility] [address] [id number], [place] [id number] Feb, [facility] [address] [id number] [place] [id number] Feb, Anxiety associated with depression F41.[address] [facility] [address] [id number] [place] [id number] Feb, [facility] [address] [id number] [place] [id number] Jan, [facility] [address] [id number], [place] [id number] Jan, [facility] [address] [id number], [place] [id number] Jan, High risk medication use Z79.899 and Anxiety associated with depression F41.[address] [facility] [address] [id number], [place] [id number] Jan, Anxiety F41.[address] [facility] [address] [id number], [place] [id number] Dec, Emotional lability R45.[address] [facility] [address] [id number], [place] [id number] Dec, Anxiety F41.[address] [facility] [address] [id number], [place] [id number] Dec, [facility] [address] [id number], [place] [id number] Dec, Anxiety associated with depression F41.[address] [facility] [address] [id number], [place] [address] Dec, [facility] [address] [id number], [place] [id number] Dec, Persistent mood [affective] disorder, unspecified F34.[address] [facility] [address] [id number], [place] [address] Nov, Hyperthyroidism E05.[address] [facility] [address] [id number], [place] [address] Nov, Hyperthyroidism E05.90 [facility] [address] [id number], [place] [id number] Nov, [facility] [address] [id number], [place] [id number] Nov, Hyperglycemia R73.9 ; Lumbago with sciatica, left side M54.42 ; Other chronic pain G89.29 and B union_ , 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 [facility] [address] [id number], [place] [id number] Nov, Depression with anxiety F41.8 [facility] [address] [id number], [place] [address] Oct, High risk medication use Z79.899 ; Dysthymia F34.1 and Venous insufficiency I87.2 [facility] [address] [id number], [place] [id number] Oct, Anxiety F41.9 [facility] [address] [id number], [place] [id number] Oct, [facility] [address] [id number], [place] [id number] Sep, Iron deficiency anemia due to chronic blood loss D50.0 [facility] [address] [id number], [place] [id number] Sep, High risk medication use Z79.899 and Sleep disturbance G47.9 [facility] [address] [id number], [place] [address] Sep, Anxiety disorder, unspecified F41.9 [facility] [address] [id number], [place] [id number] Aug, [facility] [address] [id number], [place] [id number] Aug, Iron deficiency anemia due to chronic blood loss D50.0 and Hyperthyroidism E05.90 [facility] [address] [id number], [place] [id number] Aug, Hyperthyroidism E05.90 [facility] [address] [facility] [address] [id number], [place] [id number] Aug, Hyperglycemia R73.9 [facility] [address] [facility] [address] [id number], [place] [id number] Aug, High risk medication use Z79.899 ; Dysthymia F34.1 and Hyperglycemia R73.9 [facility] [address]00565100[place] [id number] Jun, [facility] [place] [id number] [place] [id number] May, Menorrhagia with regular cycle N92.0 ; Dysmenorrhea N94.6 and Tendonitis M77.9 [facility] [address] [place] [address] [id number] May, Blood glucose elevated R73.9 [facility] [address] [place] [address] [id number] May, [facility] [place] [address] [place] [id number] [place] [address] [id number] May, Menorrhagia with regular cycle N92.0 and Dysmenorrhea N94.6 [facility] [address] [place] [address] [id number] Apr, Painful menstrual periods N94.6 ; Menorrhagia with regular cycle N92.0 and Depression with anxiety F41.8 [facility] [address]65100[place] [id number] Apr, [facility] [place] [id number] [place] [address] [id number] Feb, Plantar wart B07.0 [facility] [place] [id number] [place] [address] [id number] Feb, [facility] [place] [id number] [place] [address] [phone] Feb, Blood glucose elevated R73.9 and Lumbar radiculopathy M54.16 [facility] [place] [id number] [id number] Feb, Low grade squamous intraepithelial lesion (LGSIL) on Papanicolaou smear of cervix R87.612 [facility] [address] [place] [address] [id number] Feb, [facility] [address] [id number], [place] [id number] Jan, [facility] [address] [id number], [place] [id number] Jan, [place] [id number] [place] [address] [id number] Jan, [place] [id number] [place] [address] [id number] Jan, Routine gynecological examination V72.31 ; Encounter for Papanicolaou smear for cervical cancer screening Z12.4 and Breast cancer screening Z12.39 [place] [id number] [place] [address] [phone] Jan, Depression with anxiety F41.8 [place] [id number] [place] [address] [id number] Dec, Follow up V67.9 [place] [id number] [place] [address] [id number] Oct, Follow up V67.9 [place] [id number] [place] [address] [phone] Sep, Major depression, recurrent 296.30 [facility] [id number] [place] [address] Jun, [facility] [id number] [place] [phone] Jun, [place] [id number] [place] [address] [phone] Feb, [facility] [id number] [place] [phone] Feb, [address] [place] [address] [phone] Jan, [facility] [address]65100[place], [place] [address] Jan, [facility] [id number], [place] [id number] Dec, [facility] [address]00565100[place], [place] [address] Dec, [facility] [id number], [place] [id number] Dec, [facility] [address]65100[place], [place] [address] Dec, [facility] [id number] [place] [id number] Nov, [facility] [address]00565100[place], [place] [address] Nov, [facility] [address]65100[place], [place] [id number] Nov, [facility] [address]65100[place], [place] [address] Nov, [facility] [address] [place] [id number] [id number] Nov, [facility] [address]00565100[place], [place] [address] Nov, [facility] [address]00565100[place], [place] [address] Nov, [facility] [address]65100[place], [place] [address] Nov, [facility] [address] [place] [id number] [id number] Nov, [facility] [address]65100[place], [place] [address] Nov, IMMUNIZATIONS No Known Immunizations SOCIAL HISTORY Never Assessed REASON FOR VISIT pap results PLAN OF CARE VITAL SIGNS MEDICATIONS No Known Medications RESULTS No Results PROCEDURES No Known procedures INSTRUCTIONS MEDICATIONS ADMINISTERED No Known Medications MEDICAL (GENERAL) HISTORY Type Description Date Medical History depression-electroshock therapy at the [facility] in late 1989' Medical History Anxiety Medical History left knee pain Medical History hyperglycemia Medical History DUB Surgical History tonsillectomy and adenoidectomy Surgical History section Surgical History tubal ligation 8 years ago Surgical History partial hysterectomy/ still has ovaries 08/19/15 Hospitalization History psych stays
--- OUTSIDE RECORDS SUMMARY | 2018-07-07 13:39 | XMS REPORT ---
Author Author ALEKS CARROLL [facility] [employer] Address Unknown Phone Unavailable Care Team Providers Care Burial Agent Name Role Phone ALEKS CARROLL Unavailable Allergies [...] Start Date End Date Status Dosage Cymbalta [facility] [address]-61 30 MG Orally Twice a day October 21, 2014 1 capsule Results No Known Results Summary Purpose eClinicalWorks Submission
--- OUTSIDE RECORDS SUMMARY | 2018-07-07 13:39 | XMS REPORT ---
Author Author ALEKS CARROLL [employer] Address Unknown Phone Unavailable Care Team Providers Care Twister Tender Paper Name Role Phone ALEKS CARROLL CP Unavailable Allergies, Adverse Reactions, Alerts Substance Reaction Event Type N.K.D.A. 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 Active Assessment Plantar wart B07.0 Active Problem Dermatophytosis of the body 110.5 [...] Date End Date Status Dosage Doxycycline Hyclate [facility] [address]-66 100 MG Orally 2 times a day Mar 19, 2015 Mar 26, 2015 1 capsule Cymbalta [facility] [address]-03 30 MG Orally Twice a day October 21, 2014 1 capsule Neurontin [facility] [address]-06 300 MG Orally Once a day at bedtime Mar 17, 2015 1 capsule Abilify [facility] [address]-40 5 MG Orally Once a day Feb 10, 2015 1 tablet Metformin HCl [facility] [address]-70 500 MG Orally Once a day Mar 17, 2015 1 tablet with meals Clonazepam [facility] [address]-88 0.5 MG Orally Once a day PRN Feb 10, 2015 1 tablet Prozac [facility] [address]-98 10 MG Orally Once a day Feb 10, 2015 1 capsule in the morning Procedures Procedure Coding System Code Date DESTRUCT LESION, 04-10 CPT-4 88646 Mar 26, 2015 Vital Signs Date/Time: Mar 26, 2015 Temperature 98.1 F Weight 208.4 lbs Height 64.5 in BMI 35.22 Index Blood Pressure Diastolic 70 mmHg Blood Pressure Systolic 110 mmHg Cardiac Monitoring Heart Rate 92 bpm Results No Known Results Summary Purpose eClinicalWorks Submission
--- OUTSIDE RECORDS SUMMARY | 2018-07-07 13:40 | XMS REPORT ---
Author Author MARIE SOSA Organization [employer] Address Unknown Phone Unavailable Care Team Providers Care Marketing Automation Analyst Name Role Phone MARIE SOSA CP Unavailable [...] risk medication use Z79.899 Active Assessment Anxiety associated with depression F41.8 Active Problem Hyperthyroidism E05.90 Active Medications No Known Medications Procedures Procedure Coding System Code Date Psychotherapy, patient &/family, 30 minutes, established patient CPT-4 26268 Jan 05, 2016 Results No Known Results Summary Purpose eClinicalWorks Submission
--- OUTSIDE RECORDS SUMMARY | 2018-07-07 13:40 | XMS REPORT ---
Author Author [facility]IE SOSA [facility] Address Unknown Phone Unavailable Care Team Providers Care Railroad Car Painter Name Role Phone MARIE SOSA Unavailable Unavailable PROBLEMS Type Condition ICD9-CM Code NUI44-UC Code Onset Dates Condition Status SNOMED Code Problem Persistent mood [affective] disorder, unspecified F34.9 Active 33653887 Problem Emotional lability R45.86 Active 72303213 Problem Anxiety associated with depression F41.8 Active 662163837 Problem Obesity (BMI 35.0-39.9 without comorbidity) E66.9 Active 484013073 Problem Dysthymia F34.1 Active 28012575 Problem Menorrhagia with regular cycle N92.0 Active 477808619 Problem High risk medication use Z79.899 Active 819837268 Problem Colon cancer screening Z12.11 Active 057074580 Problem Breast cancer screening Z12.31 Active 031523911 Problem Venous insufficiency I87.2 Active 05073699 Problem History of abnormal cervical Pap smear Z87.898 Active 140322422 Problem Hyperthyroidism E05.90 Active 41911235 Problem Sleep disturbance G47.9 Active 52854908 Problem Hyperglycemia R73.9 Active 73564319 Problem Iron deficiency anemia due to chronic blood loss D50.0 Active 38189276 Problem Lumbago with sciatica, left side M54.42 Active 475330675 Problem Other chronic pain G89.29 Active 36368777 Problem Anxiety disorder, unspecified F41.9 Active 626734758 Problem Anxiety F41.9 Active 92453276 Problem B union_ , 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 564935230 Problem Depression with anxiety F41.8 Active 900955193 ALLERGIES No Information ENCOUNTERS Encounter Location Date Diagnosis [address] [id number][place] [id number] Apr, Influenza J11.[address] [id number], [place] [id number] Jan, [facility] [address] [id number], [place] [address]54124564 Jan, Venous insufficiency I87.2 and Obesity (BMI 35.0-39.9 without comorbidity) E66.[address] [facility] [address] [id number] [place] [id number] Dec, High risk medication use Z79.899 ; Hyperglycemia R73.9 ; Hyperthyroidism E05.90 ; Iron deficiency anemia due to chronic blood loss D50.0 and Menorrhagia with regular cycle N92.[address] [facility] [address] [id number], [place] [id number] Nov, [facility] [address] [id number], [place] [id number] Nov, [facility] [address] [id number], [place] 725781534 Nov, High risk medication use Z79.899 ; Dysthymia F34.1 and Venous insufficiency I87.[address] [facility] [address] [id number], [place] [id number] Sep, [facility] [address] [id number], [place] [id number] Sep, History of abnormal cervical Pap smear Z87.898 ; Breast cancer screening Z12.31 and Colon cancer screening [address]12.[address] [id number] [place] [id number] Jun, [facility] [address] [id number], [place] [id number] Apr, [facility] [address] [id number], [place] [id number] Apr, High risk medication use Z79.899 ; Dysthymia F34.1 and Hyperglycemia R73.9 [facility] [address] [id number], [place] [id number] Feb, [facility] [address] [id number], [place] [id number] Feb, Anxiety associated with depression F41.[address] [facility] [address] [id number] [place] [id number] Feb, [facility] [address] [id number] [place] [id number] Jan, [facility] [address] [id number], [place] [id number] Jan, [facility] [address] [id number], [place] [id number] Jan, High risk medication use Z79.899 and Anxiety associated with depression F41.[address] [facility] [address] [id number], [place] [id number] Jan, Anxiety F41.[address] [facility] [address] [id number], [place] [id number] Dec, Emotional lability R45.[address] [facility] [address] [id number], [place] [id number] Dec, Anxiety F41.[address] [facility] [address] [id number], [place] 706979841 Dec, [facility] [address] [id number], [place] 038235110 Dec, Anxiety associated with depression F41.[address] [facility] [address] [id number], [place] [id number] Dec, [facility] [address] [id number], [place] [id number] Dec, Persistent mood [affective] disorder, unspecified F34.[address] [facility] [address] [id number] [place] [id number] Nov, Hyperthyroidism E05.[address] [facility] [address] [id number], [place] [id number] Nov, Hyperthyroidism E05.[address] [facility] [address] [id number], [place] [id number] Nov, [facility] [address] [id number], [place] 185024126 Nov, Hyperglycemia R73.9 ; Lumbago with sciatica, left side M54.42 ; Other chronic pain G89.29 and B union_ , 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 [facility] [address] [id number], [place] [id number] Nov, Depression with anxiety F41.8 [facility] [address] [id number], [place] [id number] Oct, High risk medication use Z79.899 ; Dysthymia F34.1 and Venous insufficiency I87.2 [facility] [address] [id number], [place] [id number] Oct, Anxiety F41.9 [facility] [address] [id number], [place] [id number] Oct, [facility] [address] [id number], [place] [id number] Sep, Iron deficiency anemia due to chronic blood loss D50.0 [facility] [address] [id number], [place] 810299494 Sep, High risk medication use Z79.899 and Sleep disturbance G47.9 [facility] [address] [id number], [place] [id number] Sep, Anxiety disorder, unspecified F41.9 [facility] [address] [id number], [place] [id number] Aug, [facility] [address] [id number], [place] [id number] Aug, Iron deficiency anemia due to chronic blood loss D50.0 and Hyperthyroidism E05.90 [facility] [address] [id number], [place] [id number] Aug, Hyperthyroidism E05.90 [facility] [address] [facility] [id number], [place] 774857989 Aug, Hyperglycemia R73.[address] [facility] [id number], [place] [id number] Aug, High risk medication use Z79.899 ; Dysthymia F34.1 and Hyperglycemia R73.[address] [place] [address] [id number] Jun, [place] [id number] [place] [address] [id number] May, Menorrhagia with regular cycle N92.0 ; Dysmenorrhea N94.6 and Tendonitis M77.9 [address] [place] [id number] [place] [address] [id number] May, Blood glucose elevated R73.[address] [place] [address] [id number] May, [address] [place] [id number] [place] [address] [id number] May, Menorrhagia with regular cycle N92.0 and Dysmenorrhea N94.6 [address] [place] [id number] [place] [address] [id number] Apr, Painful menstrual periods N94.6 ; Menorrhagia with regular cycle N92.0 and Depression with anxiety F41.[address] [place] [address] [id number] Apr, [address] [place] [id number] [place] [address] [id number] Feb, Plantar wart B07.[address] [place] [address] [id number] Feb, [address] [place] [id number] [place] [address] [id number] Feb, Blood glucose elevated R73.9 and Lumbar radiculopathy M54.[address] [place] [address] [id number] Feb, Low grade squamous intraepithelial lesion (LGSIL) on Papanicolaou smear of cervix R87.612 [facility] [id number], [place] [id number] Feb, [facility] [address] [facility] [address] [id number], [place] [id number] Jan, [facility] [address] [facility] [address] [id number], [place] [id number] Jan, [facility] [id number] [place] [address] [id number] Jan, [facility] [id number] [place] [address] [id number] Jan, Routine gynecological examination V72.31 ; Encounter for Papanicolaou smear for cervical cancer screening Z12.4 and Breast cancer screening Z12.39 [facility] [id number] [place] [address] [id number] 16 Jan, 2015 Depression with anxiety F41.8 [place] [place] [id number] [place] [address] [id number] Dec, Follow up V67.9 [facility] [id number] [place] [address] [id number] Oct, Follow up V67.9 [place] [id number] [place] [address] [id number] Sep, Major depression, recurrent 296.30 [facility] [id number] [place] [address] 15989- 8396 Jun, [facility] [id number] [place] [address] [phone] Jun, [facility] [id number] [place] [address] [id number] Feb, [facility] [id number] [place] [address] [phone] Feb, [facility] [id number] [place] [address] [id number] Jan, [facility] [id number] [place] [address] [phone] Jan, [facility] [address] [facility] [id number], [place] [id number] Dec, [facility] [address]00565100[place], [place] [address] Dec, [facility] [place] [address] [address] [id number], [place] [id number] Dec, [facility] [address] [id number], [place] [address]- 0016 Dec, [facility] [place] [address] [facility] [id number], [place] [id number] Nov, [facility] [address] [facility] [id number], [place] [address]- 8762 Nov, [facility] [id number], [place] [id number] Nov, [facility] [address]00565100[place], [place] [address]- 6[address] Nov, [facility] [address] [place] [address] [id number], [place] [id number] Nov, [facility] [address]00565100[place], [place] 788[address]- 09[address] Nov, [facility] [address]00565100[place], [place] [address]- [address]85 Nov, [facility] [address] [id number], [place] [address]- 6124 Nov, [facility] [address] [id number], [place] [id number] Nov, [facility] [address] [id number], [place] [address]- [address] Nov, IMMUNIZATIONS No Known Immunizations SOCIAL HISTORY Never Assessed REASON FOR VISIT contact PLAN OF CARE Activity Details Follow Up may consider tradtional with Dr. Vila Reason:some of the anxiety seems ensconced in personality structure VITAL SIGNS MEDICATIONS No Known Medications RESULTS No Results PROCEDURES No Known procedures INSTRUCTIONS MEDICATIONS ADMINISTERED No Known Medications MEDICAL (GENERAL) HISTORY Type Description Date Medical History depression-electroshock therapy at the [facility] in late Medical History Anxiety Medical History left knee pain Medical History hyperglycemia Medical History DUB Surgical History tonsillectomy and adenoidectomy Surgical History section Surgical History tubal ligation 8 years ago Surgical History partial hysterectomy/ still has ovaries 08/19/15 Hospitalization History psych stays
--- OUTSIDE RECORDS SUMMARY | 2018-07-07 13:40 | XMS REPORT ---
Author Author ALEKS CARROLL [facility] Address Unknown Phone Unavailable Care Team Providers Care Inflated Ball Molder Name Role Phone ALEKS CARROLL Unavailable Allergies [...]
--- OUTSIDE RECORDS SUMMARY | 2018-07-07 13:40 | XMS REPORT ---
Author Author ALEJANDRO DIAS [facility] Address [address] [place] [address] Care Team Providers Care Secret Service Agent Name Role Phone ALEJANDRO DIAS Unavailable PROBLEMS Type Condition ICD9-CM Code ZTY58-ZM Code Onset Dates Condition Status SNOMED Code Problem Persistent mood [affective] disorder, unspecified F34.9 Active 64967240 Problem Emotional lability R45.86 Active 35528981 Problem Anxiety associated with depression F41.8 Active 645968770 Problem Obesity (BMI 35.0-39.9 without comorbidity) E66.9 Active 281376082 Problem Dysthymia F34.1 Active 55613563 Problem Menorrhagia with regular cycle N92.0 Active 586821380 Problem High risk medication use Z79.899 Active 775813049 Problem Colon cancer screening Z12.11 Active 143279227 Problem Breast cancer screening Z12.31 Active 653589815 Problem Venous insufficiency I87.2 Active 88239179 Problem History of abnormal cervical Pap smear Z87.898 Active 922915463 Problem Hyperthyroidism E05.90 Active 59988589 Problem Sleep disturbance G47.9 Active 88823798 Problem Hyperglycemia R73.9 Active 45568813 Problem Iron deficiency anemia due to chronic blood loss D50.0 Active 69805579 Problem Lumbago with sciatica, left side M54.42 Active 650495027 Problem Other chronic pain G89.29 Active 62721811 Problem Anxiety disorder, unspecified F41.9 Active 894242988 Problem Anxiety F41.9 Active 81360314 Problem B union_ , 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 [address] [id number], [place] 510296879 Jan, Venous insufficiency I87.2 and Obesity (BMI 35.0-39.9 without comorbidity) E66.9 [facility] [address] [id number], [place] 550322369 Dec, High risk medication use Z79.899 ; Hyperglycemia R73.9 ; Hyperthyroidism E05.90 ; Iron deficiency anemia due to chronic blood loss D50.0 and Menorrhagia with regular cycle N92.[address] [facility] [address] [id number], [place] [id number] Nov, [facility] [address] [id number], [place] [id number] Nov, [facility] [address] [id number], [place] 944758593 Nov, High risk medication use Z79.899 ; Dysthymia F34.1 and Venous insufficiency I87.2 [facility] [address] [id number], [place] [id number] Sep, [facility] [address] [id number], [place] 335562944 Sep, History of abnormal cervical Pap smear Z87.898 ; Breast cancer screening Z12.31 and Colon cancer screening Z12.[address] [id number] [place] [id number] Jun, [facility] [address] [id number], [place] [id number] Apr, [facility] [address] [id number], [place] 575471776 Apr, High risk medication use Z79.899 ; Dysthymia F34.1 and Hyperglycemia R73.9 [facility] [address] [id number], [place] [id number] Feb, [facility] [address] [id number] [place] 850297052 Feb, Anxiety associated with depression F41.[address] [facility] [address] [id number] [place] 177187925 Feb, [facility] [address] [id number] [place] 465504860 Jan, [facility] [address] [id number], [place] 585169682 Jan, [facility] [address] [id number], [place] 667612060 Jan, High risk medication use Z79.899 and Anxiety associated with depression F41.[address] [facility] [address] [id number], [place] [id number] Jan, Anxiety F41.[address] [facility] [address] [id number], [place] [id number] Dec, Emotional lability R45.[address] [facility] [address] [id number], [place] [id number] Dec, Anxiety F41.[address] [facility] [address] [id number], [place] [id number] Dec, [facility] [address] [id number], [place] 168834217 Dec, Anxiety associated with depression F41.[address] [facility] [address] [id number], [place] [id number] Dec, [facility] [address] [id number], [place] 157269706 Dec, Persistent mood [affective] disorder, unspecified F34.[address] [facility] [address] [id number], [place] [id number] Nov, Hyperthyroidism E05.[address] [facility] [address] [id number], [place] [id number] Nov, Hyperthyroidism E05.90 [facility] [address] [id number], [place] 194459938 Nov, 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 [address] [id number], [place] [id number] Nov, Depression with anxiety F41.8 [facility] [address] [id number], [place] 252368550 Oct, High risk medication use Z79.899 ; Dysthymia F34.1 and Venous insufficiency I87.2 [facility] [address] [id number], [place] [id number] Oct, Anxiety F41.9 [facility] [address] [id number], [place] [id number] Oct, [facility] [address] [id number], [place] 586809274 Sep, Iron deficiency anemia due to chronic blood loss D50.0 [facility] [address] [id number], [place] 343692545 Sep, High risk medication use Z79.899 and Sleep disturbance G47.9 [facility] [address] [id number], [place] 443391668 Sep, Anxiety disorder, unspecified F41.9 [facility] [address] [id number], [place] [id number] Aug, [facility] [address] [id number], [place] 149484050 Aug, Iron deficiency anemia due to chronic blood loss D50.0 and Hyperthyroidism E05.90 [facility] [address] [id number], [place] 872091650 Aug, Hyperthyroidism E05.90 [facility] [address] [facility] [address] [id number], [place] 565034454 Aug, Hyperglycemia R73.9 [facility] [address] [facility] [address] [id number], [place] 434194493 Aug, High risk medication use Z79.899 ; Dysthymia F34.1 and Hyperglycemia R73.9 [facility] [address]00565100[place], [place] 9157[address]287 Jun, [facility] [place] [id number] [place] [address] [id number] May, Menorrhagia with regular cycle N92.0 ; Dysmenorrhea N94.6 and Tendonitis M77.9 [facility] [address] [place] [address] [id number] May, Blood glucose elevated R73.9 [facility] [address] [place] [address] [id number] May, [facility] [place] [id number] [place] [address] [id number] May, Menorrhagia with regular cycle N92.0 and Dysmenorrhea N94.6 [facility] [address] [place] [address] [id number] Apr, Painful menstrual periods N94.6 ; Menorrhagia with regular cycle N92.0 and Depression with anxiety F41.8 [facility] [address]00565100[place], [place] [id number] Apr, [facility] [place] [id number] [place] [address] [id number] Feb, Plantar wart B07.0 [facility] [place] [id number] [place] [address] [id number] Feb, [facility] [place] [id number] [place] [address] [id number] Feb, Blood glucose elevated R73.9 and Lumbar radiculopathy M54.16 [facility] [id number], [place] [id number] Feb, Low grade squamous intraepithelial lesion (LGSIL) on Papanicolaou smear of cervix R87.612 [facility] [address] [place] [address] [id number] Feb, [facility] [address] [id number], [place] [id number] Jan, [facility] [address] [id number], [place] [id number] Jan, [place] [id number] [place] [address] [id number] Jan, [place] [address] [place] [address] [id number] Jan, Routine gynecological examination V72.31 ; Encounter for Papanicolaou smear for cervical cancer screening Z12.4 and Breast cancer screening Z12.39 [place] [id number] [place] [address] [id number] Jan, Depression with anxiety F41.8 [place] [address] [place] [address] [id number] Dec, Follow up V67.9 [place] [id number] [place] [address] [id number] Oct, Follow up V67.9 [place] [id number] [place] [address] [id number] Sep, Major depression, recurrent 296.30 [facility] [id number] [place] [address] Jun, [facility] [id number] [place] [address] 60311- 6322 Jun, [place] [id number] [place] [address] [id number] Feb, [facility] [id number] [place] [address] 96619- 7046 Feb, [address] [place] [address] [id number] Jan, [facility] [address]00565100[place], [place] [address]- 8[address] Jan, [facility] [id number], [place] [id number] Dec, [facility] [address]00565100[place], [place] [address]- 1426 Dec, [facility] [id number], [place] [id number] Dec, [facility] [address]00565100[place], [place] [address]- 8149 Dec, [facility] [id number] [place] [address] [id number] Nov, [facility] [address] [id number], [place] 156926- 8491 Nov, [facility] [address]65100[place], [place] [id number] Nov, [facility] [address]00565100[place], [place] [address]- 3105 Nov, [facility] [address]65100[place], [place] [id number] Nov, [facility] [address]00565100[place], [place] [address]- 1145 Nov, [facility] [address]65100[place], [place] [address]- 0692 Nov, [facility] [address]65100[place], [place] [address]- 5486 Nov, [facility] [address] [id number], [place] [id number] Nov, [facility] [address] [id number], [place] 060041- 3280 Nov, IMMUNIZATIONS No Known Immunizations SOCIAL HISTORY Never Assessed REASON FOR VISIT Lab (walk-in) [employer] PLAN OF CARE VITAL SIGNS MEDICATIONS No Known Medications RESULTS No Results PROCEDURES Procedure Date Ordered Result Body Site ROUTINE VENIPUNCTURE 2016-12-28 N/A ASSAY THYROID STIM HORMONE Dec 28, 2016 COMPREHEN METABOLIC PANEL Dec 28, 2016 ASSAY OF FREE THYROXINE Dec 28, 2016 COMPLETE CBC W/AUTO DIFF WBC Dec 28, 2016 INSTRUCTIONS MEDICATIONS ADMINISTERED No Known Medications MEDICAL (GENERAL) HISTORY Type Description Date Medical History depression-electroshock therapy at the [facility] in late Medical History Anxiety Medical History left knee pain Medical History hyperglycemia Medical History DUB Surgical History tonsillectomy and adenoidectomy Surgical History section 1993,2005 Surgical History tubal ligation 8 years ago Surgical History partial hysterectomy/ still has ovaries 08/19/15 Hospitalization History psych stays
--- OUTSIDE RECORDS SUMMARY | 2018-07-07 13:40 | XMS REPORT ---
Author Author ALEJANDRO DIAS Organization [employer] Address Unknown Phone Unavailable Care Team Providers Care Customer Service Coordinator Name Role Phone ALEJANDRO DIAS CP [...] Problem Other chronic pain G89.29 Active Assessment Hyperthyroidism E05.90 Active Problem Hyperglycemia R73.9 Active Problem Dysthymia F34.1 Active Problem High risk medication use Z79.899 Active Medications No Known Medications Results No Known Results Summary Purpose [employer] Submission
--- OUTSIDE RECORDS SUMMARY | 2018-07-07 13:40 | XMS REPORT ---
Author Author MARIE SOSA Organization 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 807748871 Problem Emotional lability R45.86 Active 57968995 Problem Anxiety associated with depression F41.8 Active 065994792 Problem Anxiety F41.9 Active 96701090 Problem Lumbago with sciatica, left side M54.42 Active 425840267 Problem Persistent mood [affective] disorder, unspecified F34.9 Active 37930620 Problem Depression with anxiety F41.8 Active 840499304 Problem High risk medication use Z79.899 Active 897179050 Problem Hyperthyroidism E05.90 Active 31415993 Problem Hyperglycemia R73.9 Active 67151269 Problem Iron deficiency anemia due to chronic blood loss D50.0 Active 91009180 Problem Dysthymia F34.1 Active 83411754 Problem Sleep disturbance G47.9 Active 24932703 ALLERGIES Unknown Allergies SOCIAL HISTORY No smoking Hx information available PLAN OF CARE VITAL SIGNS MEDICATIONS Unknown Medications RESULTS No Results PROCEDURES No Known procedures IMMUNIZATIONS No Known Immunizations
--- OUTSIDE RECORDS SUMMARY | 2018-07-07 13:40 | XMS REPORT ---
Author Author ALEKS CARROLL [facility] e[employer] Address Unknown Phone Unavailable Care Team Providers Care Can Worker Name Role Phone ALEKS CARROLL Unavailable Allergies [...]
--- OUTSIDE RECORDS SUMMARY | 2018-07-07 13:40 | XMS REPORT ---
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 Assessment Lumbar radiculopathy M54.16 Active Assessment Blood glucose elevated R73.9 Active Problem Dermatophytosis of the body 110.5 Active Medications Medication Code System Code Instructions Start Date End Date Status Dosage Neurontin [facility] [address]-83 300 MG Orally Once a day at bedtime Mar 17, 2015 1 capsule Metformin HCl [facility] [address]-90 500 MG Orally Once a day Mar 17, 2015 1 tablet with meals Clonazepam [facility] [address]-54 0.5 MG Orally Once a day PRN Feb 10, 2015 1 tablet Prozac [facility] [address]-35 10 MG Orally Once a day Feb 10, 2015 1 capsule in the morning Cymbalta [facility] [address]-84 30 MG Orally Twice a day October 21, 2014 1 capsule Abilify [facility] [address]-85 5 MG Orally Once a day Feb 10, 2015 1 tablet Procedures Procedure Coding System Code Date Office Visit, Est Pt., Level 3 CPT-4 77657 Mar 17, 2015 GLYCATED HEMOGLOBIN TEST CPT-4 38516 Mar 17, 2015 Vital Signs Date/Time: Mar 17, 2015 Temperature 97.7 F Weight 204.0 lbs Height 64.5 in BMI 34.47 Index Blood Pressure Diastolic 80 mmHg Blood Pressure Systolic 118 mmHg Cardiac Monitoring Heart Rate 112 bpm Results Name Result Date Reference Range Unit Abnormality Flag A1C (IN HOUSE) ----A1C IN HOUSE 5.4 [id number] 4.30 - 5.6 % ----Lot # [id number] ----Exp date [id number] Summary Purpose eClinicalWorks Submission
--- OUTSIDE RECORDS SUMMARY | 2018-07-07 13:41 | XMS REPORT | Continuity of Care Document ---
Author Organization Unknown Address Unknown Allergies Active Description Code Type Severity Reaction Onset Reported/Identified Relationship to Patient Clinical Status Yes No Known Drug Allergies [id number] Drug Allergy Unknown N/A 08/11/2015 Medications There is no data. Problems Date Dx Coded Attending Type Code Diagnosis Diagnosed By 12/03/2013 KYAW TRONCOSO DOA K V73.81 HPV SCREENING 12/03/2013 TRONCOSO DO CARMEN K V74.5 SCREENING EXAMINATION FOR VENEREAL DISEASE 12/03/2013 ABA TEJEDA CARMEN K V76.10 BREAST CANCER SCREENING 12/03/2013 TRONCOSO DO CARMEN K V76.2 CERVICAL CANCER SCREENING (PAP SMEAR) 12/03/2013 KYAW TRONCOSO DOA K V73.81 HPV SCREENING 12/03/2013 TRONCOSO DO CARMEN K V74.5 SCREENING EXAMINATION FOR VENEREAL DISEASE 12/03/2013 TRONCOSO DO CARMEN K V76.10 BREAST CANCER SCREENING 12/03/2013 TRONCOSO DO CARMEN K V76.2 CERVICAL CANCER SCREENING (PAP SMEAR) 12/03/2013 GLEN HERNANDEZ ALEKS E V73.81 HPV SCREENING 12/03/2013 GLEN BARREL LAPPER, ALEKS E V74.5 SCREENING EXAMINATION FOR VENEREAL DISEASE 12/03/2013 KYAW CARROLL APRNSIE E V76.10 BREAST CANCER SCREENING 12/03/2013 GLEN BARREL LAPPER, ALEKS E V76.2 CERVICAL CANCER SCREENING (PAP SMEAR) 12/03/2013 TRONCOSO DO CARMEN K V73.81 HPV SCREENING 12/03/2013 TRONCOSO DO CARMEN K V74.5 SCREENING EXAMINATION FOR VENEREAL DISEASE 12/03/2013 TRONCOSO DO CARMEN K V76.10 BREAST CANCER SCREENING 12/03/2013 TRONCOSO DO CARMEN K V76.2 CERVICAL CANCER SCREENING (PAP SMEAR) 12/03/2013 TRONCOSO KYAW TEJEDAA K V73.81 HPV SCREENING 12/03/2013 TRONCOSO DO CARMEN K V74.5 SCREENING EXAMINATION FOR VENEREAL DISEASE 12/03/2013 ABA TEJEDA, CARMEN K V76.10 BREAST CANCER SCREENING 12/03/2013 ABA TEJEDA CARMEN K V76.2 CERVICAL CANCER SCREENING (PAP SMEAR) 12/19/2013 ABA TEJEDA, CARMEN K 625.9 UNSPECIFIED SYMPTOM ASSOCIATED WITH FEMALE GENITAL ORGANS 12/19/2013 TRONCOSO DO, CARMEN K 626.6 METRORRHAGIA 12/19/2013 HELLWIG BARREL LAPPERKYAWALEKS E 625.9 UNSPECIFIED SYMPTOM ASSOCIATED WITH FEMALE GENITAL ORGANS 12/19/2013 HELLWIG BARREL LAPPERSHANTEE E 626.6 METRORRHAGIA 12/19/2013 TRONCOSO DO, CARMEN K 625.9 UNSPECIFIED SYMPTOM ASSOCIATED WITH FEMALE GENITAL ORGANS 12/19/2013 TRONCOSO DO, CARMEN K 626.6 METRORRHAGIA 12/19/2013 TRONCOSO DO, CARMEN K 625.9 UNSPECIFIED SYMPTOM ASSOCIATED WITH FEMALE GENITAL ORGANS 12/19/2013 TRONCOSO DO CARMEN K 626.6 METRORRHAGIA 01/23/2014 ABA TEJEDA CARMEN K 079.4 HPV 01/23/2014 TRONCOSO DO, CARMEN K 110.5 DERMATOPHYTOSIS OF THE BODY 01/23/2014 TRONCOSO DO, CARMEN K 626.2 EXCESSIVE OR FREQUENT MENSTRUATION 01/23/2014 TRONCOSO DO, CARMEN K 795.01 ABNORMAL PAP - ASCUS 01/23/2014 TRONCOSO DO, CARMEN K 079.4 HPV 01/23/2014 TRONCOSO DO, CARMEN K 110.5 DERMATOPHYTOSIS OF THE BODY 01/23/2014 TRONCOSO DO, CARMEN K 626.2 EXCESSIVE OR FREQUENT MENSTRUATION 01/23/2014 TRONCOSO DO CARMEN K 795.01 ABNORMAL PAP - ASCUS 02/28/2014 ALEKS CARROLL E BARREL LAPPER Ot V76.12 02/28/2014 ALEKS CARROLL E BARREL LAPPER Ot 620.2 02/28/2014 KYAW CARROLLSIE E BARREL LAPPER Ot 625.9 02/28/2014 KYAW CARROLLSIE E BARREL LAPPER Ot 626.6 03/04/2014 TRONCOSO DO CARMEN K 466.0 ACUTE BRONCHITIS 03/12/2014 ALEKS CARROLL E BARREL LAPPER Ot 620.2 03/12/2014 HELLWIG, ALEKS E BARREL LAPPER Ot 625.9 03/12/2014 GLEN, ALEKS E BARREL LAPPER Ot 626.6 03/03/2015 GLEN, ALEKS E BARREL LAPPER Ot 620.2 03/03/2015 HELKODI, ALEKS E BARREL LAPPER Ot 625.9 03/03/2015 HELKODI, ALEKS E BARREL LAPPER Ot 626.6 05/27/2015 HELKODI, ALEKS E BARREL LAPPER Ot V76.12 05/27/2015 GLEN, ALEKS E BARREL LAPPER Ot 620.2 05/27/2015 HELKODI, ALEKS E BARREL LAPPER Ot 625.9 05/27/2015 HELKODI, ALEKS E BARREL LAPPER Ot 626.6 05/27/2015 GLEN ALEKS E BARREL LAPPER Ot 620.2 05/27/2015 GLEN ALEKS E BARREL LAPPER Ot 625.9 05/27/2015 GLEN ALEKS E BARREL LAPPER Ot 626.6 05/27/2015 GLEN ALEKS E BARREL LAPPER Ot Z12.31 07/29/2015 GLEN ALEKS E BARREL LAPPER Ot V76.12 OTH SCREEN MAMMO-MALIGN NEOPLASM OF [place] 07/29/2015 GLEN ALEKS E BARREL LAPPER Ot 620.2 OVARIAN CYST NEC/NOS 07/29/2015 GLEN ALEKS E BARREL LAPPER Ot 625.9 FEM GENITAL SYMPTOMS NOS 07/29/2015 GLEN ALEKS E BARREL LAPPER Ot 626.6 METRORRHAGIA 07/29/2015 KYAW CARROLLSIE E BARREL LAPPER Ot N94.6 DYSMENORRHEA, UNSPECIFIED 08/04/2015 GLEN ALEKS E BARREL LAPPER Ot 620.2 OVARIAN CYST NEC/NOS 08/04/2015 GLEN ALEKS E BARREL LAPPER Ot 625.9 FEM GENITAL SYMPTOMS NOS 08/04/2015 GLEN ALEKS E BARREL LAPPER Ot 626.6 METRORRHAGIA 08/04/2015 GLEN ALEKS E BARREL LAPPER Ot Z12.31 ENCNTR SCREEN MAMMOGRAM FOR MALIGNANT NE 08/04/2015 KYAW CARROLLSIE E BARREL LAPPER Ot N94.6 DYSMENORRHEA, UNSPECIFIED 08/07/2015 ALEKS CARROLL APRN Ot N94.6 DYSMENORRHEA, UNSPECIFIED 08/11/2015 NASH DO, TERRY C Ot K66.0 PERITONEAL ADHESIONS (POSTPROCEDURAL) (P 08/11/2015 NASH DO, TERYR C Ot N92.0 EXCESSIVE AND FREQUENT MENSTRUATION WITH 08/11/2015 NASH DO, TERRY C Ot Z01.812 ENCOUNTER FOR PREPROCEDURAL LABORATORY E 08/11/2015 NASH DO, TERRY C Ot Z11.2 ENCOUNTER FOR SCREENING FOR OTHER BACTER 08/12/2015 NASH DO, TERRY C Ot K66.0 PERITONEAL ADHESIONS (POSTPROCEDURAL) (P 08/12/2015 NASH DO, TERRY C Ot N92.0 EXCESSIVE AND FREQUENT MENSTRUATION WITH 08/12/2015 NASH DO, TERRY C Ot Z01.812 ENCOUNTER FOR PREPROCEDURAL LABORATORY E 08/12/2015 NASH DO, TERRY C Ot Z11.2 ENCOUNTER FOR SCREENING FOR OTHER BACTER 08/20/2015 NASH DO, TERRY C Ot D62 ACUTE POSTHEMORRHAGIC ANEMIA 08/20/2015 NASH DO, TERRY C Ot K66.0 PERITONEAL ADHESIONS (POSTPROCEDURAL) (P 08/20/2015 NASH DO, TERRY C Ot N32.89 OTHER SPECIFIED DISORDERS OF BLADDER 08/20/2015 NASH DO, TERRY C Ot N83.8 OTH NONINFLAMMATORY DISORD OF OVARY, FAL 08/20/2015 NASH DO, TERRY C Ot N92.0 EXCESSIVE AND FREQUENT MENSTRUATION WITH 08/22/2015 NASH DO, TERRY C Ot D62 ACUTE POSTHEMORRHAGIC ANEMIA 08/22/2015 NASH DO, TERRY C Ot K66.0 PERITONEAL ADHESIONS (POSTPROCEDURAL) (P 08/22/2015 NASH DO, TERRY C Ot N32.89 OTHER SPECIFIED DISORDERS OF BLADDER 08/22/2015 NASH DO, TERRY C Ot N83.8 OTH NONINFLAMMATORY DISORD OF OVARY, FAL 08/22/2015 NASH DO, TERRY C Ot N92.0 EXCESSIVE AND FREQUENT MENSTRUATION WITH 08/29/2015 NASH DO, TERRY C Ot D62 ACUTE POSTHEMORRHAGIC ANEMIA 08/29/2015 NASH DO, TERRY C Ot K66.0 PERITONEAL ADHESIONS (POSTPROCEDURAL) (P 08/29/2015 TERRY NASH DO Ot N32.89 OTHER SPECIFIED DISORDERS OF BLADDER 08/29/2015 TERRY NASH DO David Ot N83.8 OTH NONINFLAMMATORY DISORD OF OVARY, FAL 08/29/2015 TERRY NASH DO Ot N92.0 EXCESSIVE AND FREQUENT MENSTRUATION WITH 07/03/2018 HELLWIG, ALEKS E BARREL LAPPER Ot V76.12 OTH SCREEN MAMMO-MALIGN NEOPLASM OF [place] 07/03/2018 HELLWIG, ALEKS E BARREL LAPPER Ot 620.2 OVARIAN CYST NEC/NOS 07/03/2018 HELLWIG, ALEKS E BARREL LAPPER Ot 625.9 FEM GENITAL SYMPTOMS NOS 07/03/2018 HELLWIG, ALEKS E BARREL LAPPER Ot 626.6 METRORRHAGIA 07/03/2018 HELLWIG, ALEKS E BARREL LAPPER Ot N94.6 DYSMENORRHEA, UNSPECIFIED 07/03/2018 HELLWIG, ALEKS E BARREL LAPPER Ot V76.12 OTH SCREEN MAMMO-MALIGN NEOPLASM OF [place] 07/03/2018 HELLWIG, ALEKS E BARREL LAPPER Ot 620.2 OVARIAN CYST NEC/NOS 07/03/2018 HELLWIG, ALEKS E BARREL LAPPER Ot 625.9 FEM GENITAL SYMPTOMS NOS 07/03/2018 HELLWIG, ALEKS E BARREL LAPPER Ot 626.6 METRORRHAGIA 07/03/2018 HELLWIG, ALEKS E BARREL LAPPER Ot N94.6 DYSMENORRHEA, UNSPECIFIED Procedures Code [place] [address] TRICHOMONAS (IN-HOUSE) 12/03/2013 46565 CULTURE UROGENITAL 12/03/2013 56600 GC/CHLAM PROBE (STATE) 12/03/2013 46773 PAP SMEAR 12/03/2013 Q0091 PAP SMEAR OBTAIN SMEAR 12/03/2013 39130 MAMMOGRAM, SCREENING 12/05/2013 21158 ROUTINE VENIPUNCTURE 12/19/2013 38391 US PELVIC COMPL (REFLEX CPT - 56758) 12/19/2013 41370 CMP 12/19/2013 55829 LIPID PANEL 12/19/2013 22749 TSH 12/19/2013 51282 CBC 12/19/2013 58363 TEST, URINE (IN- HOUSE) 01/23/2014 05473 COLP W/ BX & ECC 01/23/2014 41290 OXIMETRY 03/04/2014 Results Test Result Range CBC - 12/28/16 09:57 WHITE BLOOD CELL COUNT 7.5 Thousand/uL 3.8-10.8 RED BLOOD CELL COUNT 4.85 Million/uL 3.80-5.10 HEMOGLOBIN 14.4 g/dL 11.7-15.5 HEMATOCRIT 42.5 % 35.0-45.0 MCV 87.6 fL 80.0-100.0 MCH 29.7 pg 27.0-33.0 MCHC 33.9 g/dL 32.0-36.0 RDW 13.3 % 11.0-15.0 PLATELET COUNT 236 Thousand/uL 140-400 MPV 11.0 fL 7.5-12.5 ABSOLUTE NEUTROPHILS 5513 cells/uL 4394-9724 ABSOLUTE LYMPHOCYTES 1538 cells/uL 850-3900 ABSOLUTE MONOCYTES 360 cells/uL 200-950 ABSOLUTE EOSINOPHILS 53 cells/uL 15-500 ABSOLUTE BASOPHILS 38 cells/uL 0-200 NEUTROPHILS 73.5 % NRG LYMPHOCYTES 20.5 % NRG MONOCYTES 4.8 % NRG EOSINOPHILS 0.7 % NRG BASOPHILS 0.5 % NRG Arterial blood gas measurement - 07/03/18 11:33 Blood pCO2 38 mm[Hg] 35-45 Blood pO2 81 mm[Hg] 79-93 Arterial blood bicarbonate measurement (moles/volume) 24 mmol/L 23-27 Arterial blood base excess by calculation 0.0 mmol/L -2.5 -2.5 Arterial blood oxygen saturation measurement 98 % 94-100 * Inhaled oxygen flow rate ROOM AIR NRG Arterial blood pH measurement with patient temperature correction 7.42 7.37-7.43 Arterial blood carbon dioxide, total measurement (moles/volume) 25.3 mmol/L 21.0-31.0 Body site LT RAD NRG Assessment of wrist artery patency prior to arterial puncture YES- POS NRG Setting of ventilation mode NO NRG Measurement of body temperature 97.2 NRG Complete blood count (CBC) with automated white blood cell (WBC) differential - 07/07/18 08:45 Blood leukocytes automated count (number/volume) 10.1 10*3/uL 4.3-11.0 Blood erythrocytes automated count (number/volume) 4.86 10*6/uL 4.35-5.85 Venous blood hemoglobin measurement (mass/volume) 14.4 g/dL 11.5-16.0 Blood hematocrit (volume fraction) 42 % 35-52 Automated erythrocyte mean corpuscular volume 87 [foz_us] 80-99 Automated erythrocyte mean corpuscular hemoglobin (mass per erythrocyte) 30 pg 25-34 Automated erythrocyte mean corpuscular hemoglobin concentration measurement ( mass/volume) 34 g/dL 32-36 Automated erythrocyte distribution width ratio 13.7 % 10.0-14.5 Automated blood platelet count (count/volume) 211 10*3/uL 130-400 Automated blood platelet mean volume measurement 11.1 [foz_us] 7.4-10.4 Automated blood neutrophils/100 leukocytes 85 % 42-75 Automated blood lymphocytes/100 leukocytes 9 % 12-44 Blood monocytes/100 leukocytes 6 % 0-12 Automated blood eosinophils/100 leukocytes 1 % 0-10 Automated blood basophils/100 leukocytes 0 % 0-10 Blood neutrophils automated count (number/volume) 8.6 10*3 1.8-7.8 Blood lymphocytes automated count (number/volume) 0.9 10*3 1.0-4.0 Blood monocytes automated count (number/volume) 0.6 10*3 0.0-1.0 Automated eosinophil count 0.1 10*3/uL 0.0-0.3 Automated blood basophil count (count/volume) 0.0 10*3/uL 0.0-0.1 Encounters ACCT No. Visit Date/Time Discharge Status Pt. Type Provider Facility Loc./Unit Complaint [id number] 03/04/2014 10:50:00 03/04/2014 23:59:59 [facility] Outpatient CARMEN TRONCOSO DO [id number] 01/23/2014 13:12:00 01/23/2014 23:59:59 [facility] Outpatient CARMEN TRONCOSO DO [id number] 12/19/2013 09:20:00 12/19/2013 23:59:59 [facility] Outpatient CARMEN TRONCOSO DO [id number] 12/03/2013 15:22:00 12/03/2013 23:59:59 [facility] Outpatient ALEKS CARROLL APRN [id number] 12/03/2013 15:22:00 12/03/2013 23:59:59 [facility] [place] [id number] 06/14/2018 16:30:00 06/14/2018 23:59:59 [facility] Outpatient ALEJANDRO DIAS APRN [facility] [id number] 12/28/2016 10:40:00 Document Registration [id number] 07/07/2018 08:11:00 07/07/2018 10:59:00 DIS Emergency JEANCARLOS RILEY, ASHISH Kaplan [facility] ER COUGH;SOA;WEAKNESS [id number] 07/03/2018 10:04:00 07/03/2018 23:59:59 CLS Outpatient EDEL MAGANA BARREL LAPPER [facility] RAD DYSPNEA [id number] 07/03/2018 09:55:00 07/03/2018 23:59:59 CLS Preadmit EDEL MAGANA BARREL LAPPER [facility] SLEEP SLEEP DISORDER [id number] 07/03/2018 09:54:00 07/03/2018 23:59:59 CLS Preadmit EDEL MAGANA BARREL LAPPER [facility] RT DYSPNEA [id number] 08/19/2015 06:00:00 08/20/2015 16:20:00 DIS Outpatient TERRY NASH DO [facility] SDC MENORRAGIA; ADHESIONS [id number] 08/11/2015 11:28:00 08/11/2015 12:05:00 DIS Outpatient TERRY NASH DO [facility] PREOP MENORRAGIA; ADHESIONS [id number] 05/27/2015 13:47:00 05/27/2015 23:59:59 CLS Outpatient HELLKYAW ISAACSIE E BARREL LAPPER [facility] RAD PAINFUL MESTRUAL PERIODS [id number] 03/03/2015 10:27:00 03/03/2015 23:59:59 CLS Outpatient HELLPONCHO ALEKS E BARREL LAPPER [facility] RAD [id number] 12/24/2013 10:29:00 12/24/2013 23:59:59 CLS Outpatient HELLPONCHO ALEKS E BARREL LAPPER [facility] RAD PELVIC PAIN, INCREASED MENSES [id number] 12/24/2013 10:21:00 12/24/2013 23:59:59 CLS Outpatient ALEKS CARROLL APRN [facility] RAD SCREENING
== END 2018-07-07 10:59 | disposition home or self-care (01) ==
LOC: EDUNIT# 08:10 → ER 08:11
DX: J45.909 Unspecified asthma, uncomplicated (principal); F41.9 Anxiety disorder, unspecified; F32.9 Major depressive disorder, single episode, unspecified; D64.9 Anemia, unspecified; Z80.1 Family history of malignant neoplasm of trachea, bronchus and lung; Z80.0 Family history of malignant neoplasm of digestive organs; Z82.49 Family history of ischemic heart disease and other diseases of the circulatory system
CPT/HCPCS: 36415; 71045; 85025; 94640

== ENCOUNTER 2018-07-10 09:42 | Inpatient (IN) | payer OTHER ==
[~2018-07-10] VITALS: Ht 162.6 cm; Wt 99.9 kg
[~2018-07-10 09:42] MED LIST changes: +CETI10TA17 PO; +FLUT16SP22 NS; +FLUT1BLS INH; +MONT10TA24 PO; +PRD10T
[2018-07-10 12:54] VITALS: BP 123/67
[2018-07-10] MEDS ORDERED: methylPREDNISolone 125 MG (Solu-MEDROL) VIAL IV NR (13:00)
[2018-07-10] MEDS ORDERED: CATHETER FLUSH 10 ML SYR IV PRN (13:00)
[2018-07-10] MEDS ORDERED: RT-ALBUTEROL/IPRATROPIUM 3 ML (DUONEB) VIAL IH PRN (13:00)
[2018-07-10 13:24] LABS: MEAN PLATELET VOLUME 10.3 FL (7.4-10.4); RED CELL DISTRIBUTION WIDTH 13.8 % (10.0-14.5); WHITE BLOOD COUNT 11.9 10^3/uL (4.3-11.0)
[2018-07-10] MEDS: NS IV 1000 ML 1,000 ML IV SCH ×2 (13:25→23:05)
[2018-07-10] MEDS: guaiFENesin/CODEINE (ROBITUSSIN AC) 10ML UDC PO PRN ×3 (13:25→23:12)
[2018-07-10 13:45] LABS: ALANINE AMINOTRANSFERASE 19 U/L (0-55); ALBUMIN 4.1 GM/DL (3.2-4.5); ALKALINE PHOSPHATASE 93 U/L (40-136); BILIRUBIN,TOTAL 0.5 MG/DL (0.1-1.0); BUN/CREATININE RATIO 21; CARBON DIOXIDE 24 MMOL/L (21-32); CHLORIDE 103 MMOL/L (98-107); GFR ESTIMATED > 60; GLUCOSE 133 MG/DL (70-105); MAGNESIUM 2.2 MG/DL (1.8-2.4); PHOSPHORUS 3.2 MG/DL (2.3-4.7); POTASSIUM 3.8 MMOL/L (3.6-5.0); SODIUM 138 MMOL/L (135-145); TOTAL PROTEIN 6.8 GM/DL (6.4-8.2)
[2018-07-10] MEDS ORDERED: PRD20T PO (13:48)
[2018-07-10] MEDS ORDERED: TURM500C4 PO (13:48)
[2018-07-10] MEDS ORDERED: HYDR473S34 PO (13:48)
[2018-07-10] MEDS ORDERED: RT-ALBUINH IH (13:49)
--- NOTE | 2018-07-10 13:51 | NUR ---
PATIENT HAD ALL OF HER BOTTLES WITH HER AND VERIFIED HOW SHE TAKES THEM. I COMPARED IT WITH THE EXT MED HX.
[2018-07-10] MEDS: RT-ALBUTEROL/IPRATROPIUM 3 ML (DUONEB) VIAL IH SCH ×3 (14:22→21:48)
--- NOTE | 2018-07-10 14:39 | NUR ---
SERGIO AVILA admitted to room 407-1, with an admitting diagnosis of asthma, on 07/10/[address] Bowling. SERGIO AVILA introduced to surroundings, call light, bed controls, phone, TV, temperature control, lights, meal times, smoking policy, visitor policy, side rail policy, bathrooms and showers. Patient Rights given to patient in the handbook. SERGIO AVILA verbalizes understanding that [facility] is not responsible for the loss or damage to any personal effects or valuables that are kept in the patients posession during their hospitalization. The following Patient Care Plans and discharge were discussed with the patient. SERGIO AVILA verbalizes understanding of Interdisciplinary Patient Education.
[2018-07-10 15:54] VITALS: BP 118/66
--- NOTE | 2018-07-10 17:16 | Diagnostic Imaging Report ---
INDICATION: Asthma. TIME OF EXAM: 01:10 p.m. Correlation is made with prior chest from 07/07/2018. FINDINGS: The heart size is normal. The pulmonary vascularity is unremarkable. The lungs are clear. No infiltrate, effusion or pneumothorax is detected. IMPRESSION: No acute cardiopulmonary process is detected. Dictated by: Dictated on workstation # [id number]
[2018-07-10] MEDS: methylPREDNISolone 40 MG/ML (Solu-MEDROL) VIAL IV SCH ×2 (17:29→23:05)
[2018-07-10 19:34] VITALS: BP 118/69
[2018-07-11 00:11] VITALS: BP 124/74
[2018-07-11] MEDS: RT-ALBUTEROL/IPRATROPIUM 3 ML (DUONEB) VIAL IH SCH ×5 (00:49→18:27)
[2018-07-11] MEDS: guaiFENesin/CODEINE (ROBITUSSIN AC) 10ML UDC PO PRN ×4 (03:03→18:54)
[2018-07-11 04:00] VITALS: BP 116/70
[2018-07-11] MEDS: methylPREDNISolone 40 MG/ML (Solu-MEDROL) VIAL IV SCH ×3 (05:03→18:54)
[2018-07-11] MEDS: NS IV 1000 ML 1,000 ML IV SCH ×2 (05:04→13:36)
[2018-07-11 08:04] VITALS: BP 134/62
--- NOTE | 2018-07-11 08:09 | Pulmonary Consultation ---
History of Present Illness History of Present Illness Date of Consultation 07/11/18 07:42 Time Seen by Provider: 07:42 Date of Admission History of Present Illness 47yo with hx asthma presented as direct admit from my office secondary to persistent asthmaAE failed out patient treatment. Pt has been on out patient steroids and Abx. Allergies and Home Medications Allergies Coded Allergies: No Known Drug Allergies (Unverified , 07/10/18) Home Medications Albuterol Sulfate 1 Puff Puff, 2 PUFF IH Q4H PRN for SHORTNESS OF BREATH, ( Reported) Cetirizine HCl 10 Mg Tablet, 10 MG PO DAILY, (Reported) Fluticasone Propionate 16 Gm [place].susp, 1 SPRAY NS DAILY, (Reported) Fluticasone/Vilanterol 1 Each Blst.w.dev, 1 PUFF INH DAILY, (Reported) Hydrocodone/Chlorphen P-Stirex 473 Ml Karolyn.er.12h, 5 ML PO Q12H PRN for COUGH, ( Reported) Montelukast Sodium 10 Mg Tablet, 10 MG PO HS, (Reported) Turmeric/Turmeric Root Extract 1 Each Capsule, 500 MG PO DAILY, (Reported) Past Otzddbd-Jjsagq-Gqhcjq Hx Patient Social History Alcohol Use: Denies Use Recreational Drug Use: No Recent Foreign Travel: No Contact w/Someone Who Travel: No Recent Infectious Disease Expo: No Recent Hopitalizations: No Seasonal Allergies Seasonal Allergies: Yes Past Medical History Surgeries: Yes (c/s x2, ) Respiratory: Yes Chronic Bronchitis Currently Using CPAP: No Currently Using BIPAP: No Cardiac: No Neurological: No Reproductive Disorders: Yes (menorrhagia) Genitourinary: Yes (incont ) Gastrointestinal: No Musculoskeletal: No Endocrine: No HEENT: No Cancer: No Psychosocial: Yes Anxiety, Depression Integumentary: No Blood Disorders: No (anemia at times) Family Medical History Cardiovascular disease grandparents Diabetes mellitus 19 FATHER grandparents FH: cancer 19 MOTHER (eye then went to liver) grandparents (liver, lung) Hypertension grandparents Myocardial infarction grandparents Psychosocial problem G8 SISTER Review of Systems Time Seen by Provider: 08:10 Sepsis Event Evaluation Height, Weight, BMI Height: 5'4.00" Weight: 220lbs. 4.0oz. 99.124575nv; 37.8 BMI Method:Stated Exam Exam Vital Signs Date Time Temp Pulse Resp B/P (MAP) Pulse Ox O2 Delivery O2 Flow Rate FiO2 07/11/18 07:00 77 07/11/18 06:30 98 Room Air 07/11/18 04:00 97.0 57 18 116/70 (85) 97 Room Air 07/11/18 01:00 61 07/11/18 00:49 93 Room Air 07/11/18 00:11 98.2 95 18 124/74 (91) 95 Room Air 07/10/18 21:48 94 Room Air 07/10/18 20:00 Room Air 07/10/18 19:45 95 Room Air 07/10/18 19:34 98.1 80 20 118/69 (85) 98 Room Air 07/10/18 19:00 86 07/10/18 16:15 Room Air 07/10/18 15:54 97.9 77 18 118/66 (83) 97 Room Air 07/10/18 14:41 80 07/10/18 14:23 95 Room Air 07/10/18 12:54 97.0 22 60 123/67 99 Room Air I & O 07/11/18 06:59 Intake Total 1842 ml Balance 1842 ml Height & Weight Height: 5'4.00" Weight: 220lbs. 4.0oz. 99.732247ui; 37.8 BMI Method:Stated General Appearance: Anxious, Moderate Distress, Obese HEENT: PERRL/EOMI, Normal ENT Inspection, Pharynx Normal Neck: Full Range of Motion, Non Tender, Supple Respiratory: Accessory Muscle Use, Decreased Breath Sounds, Respiratory Distress, Wheezing, Other (PT has conversational dyspnea and accessory muscle use. ) Cardiovascular: Regular Rate, Rhythm, No Edema, No Gallop Capillary Refill: Less Than 3 Seconds Gastrointestinal: normal bowel sounds, non tender, soft Extremity: Normal Capillary Refill, Normal Inspection Neurologic/Psychiatric: Alert, Oriented x3 Skin: Normal Color, Warm/Dry Lymphatic: No Adenopathy Results Lab Laboratory Tests 07/10/18 13:15 Assessment/Plan Assessment/Plan AsthmaAE - failed out pt treatment -Solumedrol -SVNs -PT may need an hour long treatment -Mag IV -Heliox PRN Allergic rhinitis -Claritin -Singulair Persistent Coughing -Robitussin AC INÉS GUEVARA DO Jul 11, 2018 08:08
[2018-07-11] MEDS: LORATADINE (CLARITIN) 10 MG TAB PO SCH (08:40)
[2018-07-11] MEDS: MONTELUKAST 10 MG (SINGULAIR) TAB PO SCH (08:40)
[2018-07-11 12:34] VITALS: BP 118/61
--- NOTE | 2018-07-11 12:48 | History & Physicial (CHS) ---
HPI History of Present Illness: 47 yo F that was a direct admit from Dr Bowling's office. Patient has been seen in the ER several times in the last week. States that she became short of breath on Tuesday last week and had some improvement. She was taking her sister's breathing treatments at that time. Denies any previous hospitalizations for asthma. Never been intubated for her asthma. Denies any fever or chills. No sick contacts. This AM states that she feel better. Still having coughing attacks when she tries to talk or ambulate. Source: patient Exam Limitations: no limitations Date seen by provider: Jul 11, 2018 Time Seen by Provider: 11:05 Attending Physician Radha Perez MD PCP [facility] Consult Date of Admission Jul 10, 2018 at 12:20 Home Medications Home Medications Reviewed patient Home Medication Reconciliation performed by pharmacy medication reconciliations respiratory support technician and/or nursing. Patients Allergies have been reviewed. Allergies Coded Allergies: No Known Drug Allergies (Unverified , 07/10/18) [id number] Hx Patient Social History Alcohol Use: Denies Use Recreational Drug Use: No Recent Foreign Travel: No Contact w/other who traveled: No Recent Hopitalizations: No Recent Infectious Disease Expo: No Physical Abuse Screen: No Sexual Abuse: No Past Medical History None Family Medical History Family History: Cardiovascular disease grandparents Diabetes mellitus 19 FATHER grandparents FH: cancer 19 MOTHER (eye then went to liver) grandparents (liver, lung) Hypertension grandparents Myocardial infarction grandparents Psychosocial problem G8 SISTER Review of Systems (CHC) Constitutional: no symptoms reported; No chills, No fever EENTM: no symptoms reported Respiratory: cough, dyspnea on exertion; No hemoptysis; short of breath, wheezing Cardiovascular: no symptoms reported; No chest pain, No edema, No palpitations Gastrointestinal: no symptoms reported; No abdominal pain, No constipation, No diarrhea, No loss of appetite, No nausea, No vomiting Genitourinary: no symptoms reported; No dysuria, No frequency, No hematuria : No Musculoskeletal: no symptoms reported Skin: no symptoms reported Psychiatric/Neurological: No Symptoms Reported Reviewed Test Results Reviewed Test Results Lab Laboratory Tests Test 07/10/18 13:15 Range/Units White Blood Count 11.9 H 4.3-11.0 10^3/uL Red Blood Count 4.74 4.35-5.85 10^6/uL Hemoglobin 14.0 11.5-16.0 G/DL Hematocrit 41 35-52 % Mean Corpuscular Volume 87 80-99 FL Mean Corpuscular Hemoglobin 30 25-34 PG Mean Corpuscular Hemoglobin Concent 34 32-36 G/DL Red Cell Distribution Width 13.8 10.0-14.5 % Platelet Count 253 130-400 10^3/uL Mean Platelet Volume 10.3 7.4-10.4 FL Sodium Level 138 135-145 MMOL/L Potassium Level 3.8 3.6-5.0 MMOL/L Chloride Level 103 98-107 MMOL/L Carbon Dioxide Level 24 21-32 MMOL/L Anion Gap 11 5-14 MMOL/L Blood Urea Nitrogen 19 H 7-18 MG/DL Creatinine 0.90 0.60-1.30 MG/DL Estimat Glomerular Filtration Rate > 60 BUN/Creatinine Ratio 21 Glucose Level 133 H 70-105 MG/DL Calcium Level 9.0 8.5-10.1 MG/DL Corrected Calcium 8.9 8.5-10.1 MG/DL Phosphorus Level 3.2 2.3-4.7 MG/DL Magnesium Level 2.2 1.8-2.4 MG/DL Total Bilirubin 0.5 0.1-1.0 MG/DL Aspartate Amino Transf (AST/SGOT) 11 5-34 U/L Alanine Aminotransferase (ALT/SGPT) 19 0-55 U/L Alkaline Phosphatase 93 40-136 U/L Total Protein 6.8 6.4-8.2 GM/DL Albumin 4.1 3.2-4.5 GM/DL Physical Exam-(CHC) Physical Exam Vital Signs VS - Last 72 Hours, by Label 07/10/18 07/10/18 07/10/18 07/10/18 12:54 14:23 14:41 15:54 Temp 97.0 97.9 Pulse 22 80 77 Resp 60 18 B/P (MAP) 123/67 118/66 (83) Pulse Ox 99 95 97 O2 Delivery Room Air Room Air Room Air 07/10/18 07/10/18 07/10/18 07/10/18 16:15 19:00 19:34 19:45 Temp 98.1 Pulse 86 80 Resp 20 B/P (MAP) 118/69 (85) Pulse Ox 98 95 O2 Delivery Room Air Room Air Room Air 07/10/18 07/10/18 07/11/18 07/11/18 20:00 21:48 00:11 00:49 Temp 98.2 Pulse 95 Resp 18 B/P (MAP) 124/74 (91) Pulse Ox 94 95 93 O2 Delivery Room Air Room Air Room Air Room Air 07/11/18 07/11/18 07/11/18 07/11/18 01:00 04:00 06:30 07:00 Temp 97.0 Pulse 61 57 77 Resp 18 B/P (MAP) 116/70 (85) Pulse Ox 97 98 O2 Delivery Room Air Room Air 07/11/18 07/11/18 07/11/18 07/11/18 08:04 09:02 11:17 12:34 Temp 98.2 98.4 Pulse 85 78 Resp 20 20 B/P (MAP) 134/62 (86) 118/61 (80) Pulse Ox 96 97 97 O2 Delivery Room Air Room Air Room Air Room Air Capillary Refill : General Appearance: moderate distress (coughing thru exam) HEENT: PERRL/EOMI Neck: non-tender, full range of motion, supple Respiratory: chest non-tender, respiratory distress, wheezing, expiration, inspiration Cardiovascular: normal peripheral pulses, regular rate, rhythm, no edema, no murmur Gastrointestinal: normal bowel sounds, non tender, soft, no organomegaly Back: no CVA tenderness, no vertebral tenderness Extremities: no pedal edema, no calf tenderness, normal capillary refill Neurologic/Psychiatric: trimmer and reinforcer II-XII nml as tested, no motor/sensory deficits, alert, normal mood/affect Skin: normal color, warm/dry Lymphatic: no adenopathy Assessment/Plan Assessment/Plan Admission Status: Observation (1) Acute asthma exacerbation Status: Acute Assessment & Plan: - Dr Bowling Managing, MAT protocol, scheduled and PRN A/A nebs, Continue Steroids,will add Mag 2 Grams today Qualifiers: Qualified Codes: J45.51 - Severe persistent asthma with (acute) exacerbation (2) Hypoxia Status: Acute (3) DVT prophylaxis Assessment & Plan: - Lovenox Clinical Quality Measures DVT/VTE Risk/Contraindication: Risk Factor Score Per Nursin RFS Level Per Nursing on Admit: 2=Moderate Copy Copies To 1: [facility] GAULT,RADHA R MD Jul 11, 2018 12:48
[2018-07-11] MEDS: MAGNESIUM 1 GM/100 ML IVPB 100 ML IV SCH ×2 (13:36→16:53)
--- NOTE | 2018-07-11 15:35 | NUR ---
Pastoral care visit.
[2018-07-11 15:48] VITALS: BP 128/61
[2018-07-11 20:00] VITALS: BP 132/63
[2018-07-12] VITALS: BP 116/62
[2018-07-12] MEDS: methylPREDNISolone 40 MG/ML (Solu-MEDROL) VIAL IV SCH ×4 (00:05→18:08)
[2018-07-12 04:00] VITALS: BP 132/71
[2018-07-12] MEDS: NS IV 1000 ML 1,000 ML IV SCH (04:42)
[2018-07-12] MEDS: RT-ALBUTEROL/IPRATROPIUM 3 ML (DUONEB) VIAL IH SCH ×5 (06:37→22:48)
[2018-07-12 07:00] LABS: BASOPHILS % (AUTO) 0 % (0-10); EOSINOPHILS % (AUTO) 0 % (0-10); HEMATOCRIT 41 % (35-52); HEMOGLOBIN 13.5 G/DL (11.5-16.0); LYMPHOCYTES # (AUTO) 1.3 X 10^3 (1.0-4.0); LYMPHOCYTES % (AUTO) 7 % (12-44); MEAN CORPUSCULAR HEMOGLOBIN 29 PG (25-34); MEAN CORPUSCULAR HGB CONC 33 G/DL (32-36); MEAN CORPUSCULAR VOLUME 88 FL (80-99); MEAN PLATELET VOLUME 10.5 FL (7.4-10.4); MONOCYTES # (AUTO) 0.6 X 10^3 (0.0-1.0); MONOCYTES % (AUTO) 3 % (0-12); NEUTROPHILS # (AUTO) 16.8 X 10^3 (1.8-7.8); NEUTROPHILS % (AUTO) 90 % (42-75); PLATELET COUNT 258 10^3/uL (130-400); WHITE BLOOD COUNT 18.6 10^3/uL (4.3-11.0)
[2018-07-12 07:18] LABS: BUN/CREATININE RATIO 23; CALCIUM 8.7 MG/DL (8.5-10.1); CARBON DIOXIDE 22 MMOL/L (21-32); CHLORIDE 107 MMOL/L (98-107); CREATININE SERUM 0.79 MG/DL (0.60-1.30); GFR ESTIMATED > 60; GLUCOSE 144 MG/DL (70-105); POTASSIUM 4.3 MMOL/L (3.6-5.0); SODIUM 138 MMOL/L (135-145)
[2018-07-12 07:32] LABS: LYMPHOCYTES % (MANUAL) 5 %; NEUTROPHILS % (MANUAL) 95 %; RBC MORPH NORMAL
[2018-07-12 07:42] VITALS: BP 129/63
[2018-07-12] MEDS: LORATADINE (CLARITIN) 10 MG TAB PO SCH (09:00)
[2018-07-12] MEDS: MONTELUKAST 10 MG (SINGULAIR) TAB PO SCH (09:00)
--- NOTE | 2018-07-12 10:56 | Pulmonary Progress Note ---
Subjective Time Seen by a Provider: 13:11 Subjective/Events-last exam PT is still very SOB with accessory muscle use. Sepsis Event Evaluation Height, Weight, BMI Height: 5'4.00" Weight: 220lbs. 4.0oz. 99.326463ad; 37.8 BMI Method:Stated Exam Exam Vital Signs Date Time Temp Pulse Resp B/P (MAP) Pulse Ox O2 Delivery O2 Flow Rate FiO2 07/12/18 10:44 96 Room Air 07/12/18 07:42 98.2 87 20 129/63 (85) 99 Room Air 07/12/18 07:00 85 07/12/18 06:37 97 Room Air 07/12/18 04:12 53 07/12/18 04:00 97.7 78 18 132/71 (91) 98 Room Air 07/12/18 00:00 98.0 68 20 116/62 (80) 98 Room Air 07/11/18 23:00 96 Room Air 07/11/18 20:00 98.1 90 20 132/63 (86) 97 Room Air 07/11/18 20:00 Room Air 07/11/18 19:38 90 07/11/18 18:29 98 Room Air 07/11/18 15:48 98.5 103 20 128/61 (83) 98 Room Air 07/11/18 14:38 98 Room Air 07/11/18 12:51 86 07/11/18 12:34 98.4 78 20 118/61 (80) 97 Room Air 07/11/18 11:17 97 Room Air I & O 07/12/18 07:00 Intake Total 4400 ml Balance 4400 ml Height & Weight Height: 5'4.00" Weight: 220lbs. 4.0oz. 99.906616cg; 37.8 BMI Method:Stated General Appearance: Anxious, Moderate Distress, Obese HEENT: PERRL/EOMI, Normal ENT Inspection, Pharynx Normal Neck: Full Range of Motion, Non Tender, Supple Respiratory: Accessory Muscle Use, Decreased Breath Sounds, Respiratory Distress, Wheezing, Other (PT has conversational dyspnea and accessory muscle use. ) Cardiovascular: Regular Rate, Rhythm, No Edema, No Gallop Capillary Refill: Less Than 3 Seconds Gastrointestinal: normal bowel sounds, non tender, soft Extremity: Normal Capillary Refill, Normal Inspection Neurologic/Psychiatric: Alert, Oriented x3 Skin: Normal Color, Warm/Dry Lymphatic: No Adenopathy Results Lab Laboratory Tests 07/10/18 13:15 07/12/18 06:10 Assessment/Plan Assessment/Plan AsthmaAE - failed out pt treatment -Solumedrol -Will do an hour long SVN -SVNs Allergic rhinitis -Claritin -Singulair Persistent Coughing -Robitussin AC INÉS GUEVARA DO Jul 12, 2018 10:56
--- NOTE | 2018-07-12 11:34 | Diagnostic Imaging Report ---
INDICATION: Asthma and shortness of breath. Comparison is made with prior examination 07/10/2018. FINDINGS: The heart size, mediastinal configuration, and pulmonary vascularity are within normal limits. There is no pleural effusion, pneumothorax, or pneumonia. The osseous structures are unremarkable. IMPRESSION: No acute cardiopulmonary abnormality. Dictated by: Dictated on workstation # [id number]
[2018-07-12 11:53] VITALS: BP 146/76
[2018-07-12] MEDS ORDERED: RT-ALBUTEROL SULF 2.5 MG/3 ML PRE-MIX VIAL INH ONE (13:30)
[2018-07-12] MEDS ORDERED: RT-IPRATROPIUM (ATROVENT) 0.5MG/2.5ML AMP IH ONE (13:30)
[2018-07-12 13:54] LABS: PHOSPHORUS 3.9 MG/DL (2.3-4.7)
--- NOTE | 2018-07-12 15:31 | Progress Note (SOAP) ---
Subjective Subjective/Events-last exam Patient states that she feels better but still having increased work of breathing and coughing. She is tolerating RA and has been up walking around. Activity causes cough. Review of Systems Date Seen by Provider: Jul 12, 2018 Time Seen by Provider: 11:15 Pulmonary: Dyspnea, Cough Cardiovascular: No: Chest Pain, Palpitations Gastrointestinal: Nausea Objective Exam Last Set of Vital Signs Vital Signs Date Time Temp Pulse Resp B/P (MAP) Pulse Ox O2 Delivery O2 Flow Rate FiO2 07/12/18 13:34 98 Room Air 07/12/18 12:33 77 07/12/18 11:53 98.8 20 146/76 (99) Capillary Refill : Less Than 3 Seconds I&O Intake and Output 07/12/18 00:00 Intake Total 4100 ml Balance 4100 ml Intake Oral 1900 ml IV Total 2200 ml # Voids 16 # Bowel Movements 2 General: Alert, Oriented X3, Cooperative, Mild Distress Lungs: Other (Diminished breath sound bilaterally, + wheezing with insp/Exp, no crackles, Increased work of breathing) Heart: Regular Rate, No Murmurs Abdomen: Normal Bowel Sounds, Soft, No Tenderness, No Masses Extremities: No Edema Results/Procedures Lab Laboratory Tests 07/12/18 06:10: White Blood Count 18.6H, Red Blood Count 4.60, Hemoglobin 13.5, Hematocrit 41, Mean Corpuscular Volume 88, Mean Corpuscular Hemoglobin 29, Mean Corpuscular Hemoglobin Concent 33, Red Cell Distribution Width 14.0, Platelet Count 258, Mean Platelet Volume 10.5H, Neutrophils (%) (Auto) 90H, Lymphocytes (%) (Auto) 7L, Monocytes (%) (Auto) 3, Eosinophils (%) (Auto) 0, Basophils (%) (Auto) 0, Neutrophils # (Auto) 16.8H, Lymphocytes # (Auto) 1.3, Monocytes # (Auto) 0.6, Eosinophils # (Auto) 0.0, Basophils # (Auto) 0.0, Neutrophils % (Manual) 95, Lymphocytes % (Manual) 5, Blood Morphology Comment NORMAL, Sodium Level 138, Potassium Level 4.3, Chloride Level 107, Carbon Dioxide Level 22, Anion Gap 9, Blood Urea Nitrogen 18, Creatinine 0.79, Estimat Glomerular Filtration Rate > 60 , BUN/Creatinine Ratio 23, Glucose Level 144H, Calcium Level 8.7, Phosphorus Level 3.9, Magnesium Level 3.0H Assessment/Plan Assessment/Plan (1) Acute asthma exacerbation Status: Acute Assessment & Plan: - Dr Bowling Managing, MAT protocol, scheduled and PRN A/A nebs, Continue Steroids,will add Mag 2 Grams today 07/12: Tawnya ordered 1 hr breathing treatment, continue steroids, and scheduled treatments Qualifiers: Qualified Codes: J45.51 - Severe persistent asthma with (acute) exacerbation (2) Hypoxia Status: Acute (3) DVT prophylaxis Status: Acute Assessment & Plan: - Lovenox Clinical Quality Measures DVT/VTE Risk/Contraindication: Risk Factor Score Per Nursin RFS Level Per Nursing on Admit: 2=Moderate RADHA ALVAREZ MD Jul 12, 2018 15:31
[2018-07-12 16:00] VITALS: BP 136/65
[2018-07-12 20:45] VITALS: BP 140/66
[2018-07-13] VITALS: BP 127/61
[2018-07-13] MEDS: methylPREDNISolone 40 MG/ML (Solu-MEDROL) VIAL IV SCH ×4 (00:11→18:45)
[2018-07-13] MEDS: RT-ALBUTEROL/IPRATROPIUM 3 ML (DUONEB) VIAL IH SCH ×6 (02:37→21:56)
[2018-07-13 04:00] VITALS: BP 127/74
[2018-07-13 06:16] LABS: BASOPHILS % (AUTO) 0 % (0-10); EOSINOPHILS % (AUTO) 0 % (0-10); HEMATOCRIT 40 % (35-52); HEMOGLOBIN 13.3 G/DL (11.5-16.0); LYMPHOCYTES # (AUTO) 1.1 X 10^3 (1.0-4.0); LYMPHOCYTES % (AUTO) 6 % (12-44); MEAN CORPUSCULAR HEMOGLOBIN 30 PG (25-34); MEAN CORPUSCULAR HGB CONC 34 G/DL (32-36); MEAN CORPUSCULAR VOLUME 88 FL (80-99); MEAN PLATELET VOLUME 10.6 FL (7.4-10.4); MONOCYTES # (AUTO) 0.6 X 10^3 (0.0-1.0); MONOCYTES % (AUTO) 3 % (0-12); NEUTROPHILS # (AUTO) 16.7 X 10^3 (1.8-7.8); NEUTROPHILS % (AUTO) 91 % (42-75); PLATELET COUNT 233 10^3/uL (130-400); WHITE BLOOD COUNT 18.5 10^3/uL (4.3-11.0)
[2018-07-13 06:45] LABS: BUN/CREATININE RATIO 22; CALCIUM 8.7 MG/DL (8.5-10.1); CARBON DIOXIDE 21 MMOL/L (21-32); CHLORIDE 104 MMOL/L (98-107); CREATININE SERUM 0.78 MG/DL (0.60-1.30); GFR ESTIMATED > 60; GLUCOSE 160 MG/DL (70-105); POTASSIUM 4.3 MMOL/L (3.6-5.0); SODIUM 138 MMOL/L (135-145)
--- NOTE | 2018-07-13 07:32 | Pulmonary Progress Note ---
Subjective Time Seen by a Provider: 07:31 Subjective/Events-last exam PT still has persistent SOB and conversational dyspnea. Sepsis Event Evaluation Height, Weight, BMI Height: 5'4.00" Weight: 220lbs. 4.0oz. 99.920239gj; 37.8 BMI Method:Stated Exam Exam Vital Signs Date Time Temp Pulse Resp B/P (MAP) Pulse Ox O2 Delivery O2 Flow Rate FiO2 07/13/18 07:06 95 Room Air 07/13/18 07:00 76 07/13/18 04:00 97.5 83 20 127/74 (91) 98 Room Air 07/13/18 02:37 97 Room Air 07/13/18 01:00 62 07/13/18 00:00 97.9 82 48 127/61 (83) 96 Room Air 07/12/18 22:48 96 Room Air 07/12/18 20:45 97.9 90 20 140/66 (90) 97 Room Air 07/12/18 20:00 Room Air 07/12/18 19:00 99 07/12/18 16:00 98.4 90 20 136/65 (88) 99 Room Air 07/12/18 13:34 98 Room Air 07/12/18 12:33 77 07/12/18 11:53 98.8 73 20 146/76 (99) 96 Room Air 07/12/18 10:44 96 Room Air 07/12/18 08:00 Room Air 07/12/18 07:42 98.2 87 20 129/63 (85) 99 Room Air I & O 07/13/18 07:00 Intake Total 2175 ml Output Total 1 ml Balance 2174 ml Height & Weight Height: 5'4.00" Weight: 220lbs. 4.0oz. 99.246254vz; 37.8 BMI Method:Stated General Appearance: Anxious, Mild Distress, Obese HEENT: PERRL/EOMI, Normal ENT Inspection, Pharynx Normal Neck: Full Range of Motion, Non Tender, Supple Respiratory: Accessory Muscle Use, Decreased Breath Sounds, Respiratory Distress, Wheezing, Other (PT has conversational dyspnea and accessory muscle use. ) Cardiovascular: Regular Rate, Rhythm, No Edema, No Gallop Capillary Refill: Less Than 3 Seconds Gastrointestinal: normal bowel sounds, non tender, soft Extremity: Normal Capillary Refill, Normal Inspection Neurologic/Psychiatric: Alert, Oriented x3 Skin: Normal Color, Warm/Dry Lymphatic: No Adenopathy Results Lab Laboratory Tests 07/12/18 06:10 07/13/18 05:24 Assessment/Plan Assessment/Plan AsthmaAE - failed out pt treatment -Solumedrol -S/P hour long SVN yesterday -SVNs Allergic rhinitis -Claritin -Singulair Persistent Coughing -Robitussin AC INÉS GUEVARA DO Jul 13, 2018 07:32
[2018-07-13 08:00] VITALS: BP 126/78
[2018-07-13] MEDS ORDERED: ACETAMINOPHEN 500 MG TAB (TYLENOL) ONE (10:05)
[2018-07-13] MEDS: MONTELUKAST 10 MG (SINGULAIR) TAB PO SCH (10:10)
[2018-07-13] MEDS: LORATADINE (CLARITIN) 10 MG TAB PO SCH (10:10)
[2018-07-13] MEDS ORDERED: ACETAMINOPHEN 500 MG TAB (TYLENOL) PO PRN (10:15)
[2018-07-13 12:00] VITALS: BP 138/81
[2018-07-13 16:22] VITALS: BP 136/48
[2018-07-13] MEDS: guaiFENesin/CODEINE (ROBITUSSIN AC) 10ML UDC PO PRN (18:45)
[2018-07-13 19:27] VITALS: BP 140/83
--- NOTE | 2018-07-13 21:02 | Progress Note (SOAP) ---
Subjective Subjective/Events-last exam Patient still short of breath and coughing with any activity. States that she is feeling better. Tolerating PO diet and ambulation Review of Systems Date Seen by Provider: Jul 13, 2018 Time Seen by Provider: 09:45 Pulmonary: Dyspnea, Cough Cardiovascular: No: Chest Pain, Palpitations Gastrointestinal: No: Nausea, Vomiting Genitourinary: No Dysuria, No Frequency Objective Exam Last Set of Vital Signs Vital Signs Date Time Temp Pulse Resp B/P (MAP) Pulse Ox O2 Delivery O2 Flow Rate FiO2 07/13/18 19:00 83 07/13/18 18:32 97 Room Air 07/13/18 16:22 98.2 20 136/48 (77) Capillary Refill : Less Than 3 Seconds I&O Intake and Output 07/13/18 00:00 Intake Total 2475 ml Output Total 1 ml Balance 2474 ml Intake Oral 2475 ml Output Stool Total 1 ml # Voids 18 # Bowel Movements 1 General: Alert, Oriented X3, Cooperative, Mild Distress (with minimal activity) Lungs: Other (Diffuse wheezing, increased work of breathing with activity) Heart: Regular Rate, No Murmurs Extremities: No Edema, No Tenderness/Swelling Psych/Mental Status: Mental Status NL, Mood NL Results/Procedures Lab Laboratory Tests 07/13/18 05:24: White Blood Count 18.5H, Red Blood Count 4.48, Hemoglobin 13.3, Hematocrit 40, Mean Corpuscular Volume 88, Mean Corpuscular Hemoglobin 30, Mean Corpuscular Hemoglobin Concent 34, Red Cell Distribution Width 14.0, Platelet Count 233, Mean Platelet Volume 10.6H, Neutrophils (%) (Auto) 91H, Lymphocytes (%) (Auto) 6L, Monocytes (%) (Auto) 3, Eosinophils (%) (Auto) 0, Basophils (%) (Auto) 0, Neutrophils # (Auto) 16.7H, Lymphocytes # (Auto) 1.1, Monocytes # (Auto) 0.6, Eosinophils # (Auto) 0.0, Basophils # (Auto) 0.0, Sodium Level 138, Potassium Level 4.3, Chloride Level 104, Carbon Dioxide Level 21, Anion Gap 13, Blood Urea Nitrogen 17, Creatinine 0.78, Estimat Glomerular Filtration Rate > 60, BUN/ Creatinine Ratio 22, Glucose Level 160H, Calcium Level 8.7 Assessment/Plan Assessment/Plan (1) Acute asthma exacerbation Status: Acute Assessment & Plan: - Dr Bowling Managing, MAT protocol, scheduled and PRN A/A nebs, Continue Steroids,will add Mag 2 Grams today 07/12: Tawnya ordered 1 hr breathing treatment, continue steroids, and scheduled treatments 07/13: Discussed with nursing to make sure patient gets scheduled treatments on time Qualifiers: Qualified Codes: J45.51 - Severe persistent asthma with (acute) exacerbation (2) Hypoxia Status: Resolved (3) DVT prophylaxis Status: Acute Assessment & Plan: - Lovenox Clinical Quality Measures DVT/VTE Risk/Contraindication: Risk Factor Score Per Nursin RFS Level Per Nursing on Admit: 2=Moderate RADHA ALVAREZ MD Jul 13, 2018 21:02
[2018-07-14] MEDS: methylPREDNISolone 40 MG/ML (Solu-MEDROL) VIAL IV SCH ×4 (00:43→17:20)
[2018-07-14 00:45] VITALS: BP 130/71
[2018-07-14] MEDS: RT-ALBUTEROL/IPRATROPIUM 3 ML (DUONEB) VIAL IH SCH ×6 (02:17→22:19)
[2018-07-14 04:00] VITALS: BP 116/81
[2018-07-14 05:44] LABS: BASOPHILS % (AUTO) 0 % (0-10); EOSINOPHILS % (AUTO) 0 % (0-10); HEMATOCRIT 44 % (35-52); HEMOGLOBIN 14.6 G/DL (11.5-16.0); LYMPHOCYTES # (AUTO) 1.3 X 10^3 (1.0-4.0); LYMPHOCYTES % (AUTO) 7 % (12-44); MEAN CORPUSCULAR HEMOGLOBIN 30 PG (25-34); MEAN CORPUSCULAR HGB CONC 34 G/DL (32-36); MEAN CORPUSCULAR VOLUME 88 FL (80-99); MEAN PLATELET VOLUME 10.1 FL (7.4-10.4); MONOCYTES # (AUTO) 0.7 X 10^3 (0.0-1.0); MONOCYTES % (AUTO) 4 % (0-12); NEUTROPHILS # (AUTO) 16.4 X 10^3 (1.8-7.8); NEUTROPHILS % (AUTO) 89 % (42-75); PLATELET COUNT 246 10^3/uL (130-400); WHITE BLOOD COUNT 18.4 10^3/uL (4.3-11.0)
--- NOTE | 2018-07-14 06:03 | Pulmonary Progress Note ---
Subjective Time Seen by a Provider: 06:03 Sepsis Event Evaluation Height, Weight, BMI Height: 5'4.00" Weight: 220lbs. 4.0oz. 99.472975as; 37.8 BMI Method:Stated Exam Exam Vital Signs Date Time Temp Pulse Resp B/P (MAP) Pulse Ox O2 Delivery O2 Flow Rate FiO2 07/14/18 02:17 93 Room Air 07/14/18 01:00 66 07/14/18 00:45 97.3 77 19 130/71 (90) 98 Room Air 07/13/18 21:56 95 Room Air 07/13/18 20:30 93 Room Air 07/13/18 19:27 97.9 69 20 140/83 (102) 97 Room Air 07/13/18 19:00 83 07/13/18 18:32 97 Room Air 07/13/18 16:22 98.2 98 20 136/48 (77) 97 Room Air 07/13/18 14:56 95 Room Air 07/13/18 13:00 75 07/13/18 12:00 98.9 77 18 138/81 (100) 96 Room Air 07/13/18 10:48 97 Room Air 07/13/18 08:00 Room Air 07/13/18 08:00 99.2 81 18 126/78 (94) 99 Room Air 07/13/18 07:06 95 Room Air 07/13/18 07:00 76 I & O 07/14/18 07:00 Intake Total 1540 ml Balance 1540 ml Height & Weight Height: 5'4.00" Weight: 220lbs. 4.0oz. 99.915842yr; 37.8 BMI Method:Stated General Appearance: Anxious, Mild Distress, Obese HEENT: PERRL/EOMI, Normal ENT Inspection, Pharynx Normal Neck: Full Range of Motion, Non Tender, Supple Respiratory: Accessory Muscle Use, Decreased Breath Sounds, Respiratory Distress, Wheezing, Other (PT has conversational dyspnea and accessory muscle use. ) Cardiovascular: Regular Rate, Rhythm, No Edema, No Gallop Capillary Refill: Less Than 3 Seconds Gastrointestinal: normal bowel sounds, non tender, soft Extremity: Normal Capillary Refill, Normal Inspection Neurologic/Psychiatric: Alert, Oriented x3 Skin: Normal Color, Warm/Dry Lymphatic: No Adenopathy Results Lab Laboratory Tests 07/12/18 06:10 07/13/18 05:24 07/14/18 05:35 Assessment/Plan Assessment/Plan AsthmaAE - failed out pt treatment -Solumedrol -S/P hour long SVN yesterday -SVNs Persistent conversational dyspnea -Check echocardiogram to screen for pulmonary HTN. Allergic rhinitis -Claritin -Singulair Persistent Coughing -Robitussin INÉS FIELDS DO Jul 14, 2018 06:03
[2018-07-14 08:00] VITALS: BP 126/65
[2018-07-14] MEDS: MONTELUKAST 10 MG (SINGULAIR) TAB PO SCH (08:23)
[2018-07-14] MEDS: LORATADINE (CLARITIN) 10 MG TAB PO SCH (08:23)
--- NOTE | 2018-07-14 11:29 | Progress Note (SOAP) ---
Subjective Subjective/Events-last exam Patient states that she is still coughing and short of breath with ambulation. Patient tolerating PO diet and ambulation Review of Systems Date Seen by Provider: Jul 14, 2018 Time Seen by Provider: 10:15 Pulmonary: Dyspnea, Cough Cardiovascular: No: Chest Pain, Palpitations Gastrointestinal: No: Nausea, Vomiting, Abdominal Pain Musculoskeletal: back pain Objective Exam Last Set of Vital Signs Vital Signs Date Time Temp Pulse Resp B/P (MAP) Pulse Ox O2 Delivery O2 Flow Rate FiO2 07/14/18 11:08 97 Room Air 07/14/18 08:00 99.5 85 20 126/65 (85) Capillary Refill : Less Than 3 Seconds I&O Intake and Output 07/14/18 00:00 Intake Total 1840 ml Balance 1840 ml Intake Oral 1840 ml # Voids 15 # Bowel Movements 1 General: Alert, Oriented X3, Cooperative, No Acute Distress Lungs: Other (Diffuse wheezing, no crackles, mild increased work of breathing with activity) Heart: Regular Rate, No Murmurs Extremities: No Cyanosis, No Edema, No Tenderness/Swelling Neuro: Normal Gait, Normal Speech, Strength at 5/5 X4 Ext, Cranial Nerves 3-12 NL Psych/Mental Status: Mental Status NL, Mood NL Results/Procedures Lab Laboratory Tests 07/14/18 05:35: White Blood Count 18.4H, Red Blood Count 4.95, Hemoglobin 14.6, Hematocrit 44, Mean Corpuscular Volume 88, Mean Corpuscular Hemoglobin 30, Mean Corpuscular Hemoglobin Concent 34, Red Cell Distribution Width 14.0, Platelet Count 246, Mean Platelet Volume 10.1, Neutrophils (%) (Auto) 89H, Lymphocytes (%) (Auto) 7L , Monocytes (%) (Auto) 4, Eosinophils (%) (Auto) 0, Basophils (%) (Auto) 0, Neutrophils # (Auto) 16.4H, Lymphocytes # (Auto) 1.3, Monocytes # (Auto) 0.7, Eosinophils # (Auto) 0.0, Basophils # (Auto) 0.0 Assessment/Plan Assessment/Plan (1) Acute asthma exacerbation Status: Acute Assessment & Plan: - Dr Bowling Managing, MAT protocol, scheduled and PRN A/A nebs, Continue Steroids,will add Mag 2 Grams today 07/12: Tawnya ordered 1 hr breathing treatment, continue steroids, and scheduled treatments 07/13: Discussed with nursing to make sure patient gets scheduled treatments on time 07/14: Continue IV steroids, Scheduled and PRN nebs Qualifiers: Qualified Codes: J45.51 - Severe persistent asthma with (acute) exacerbation (2) Hypoxia Status: Resolved (3) DVT prophylaxis Status: Acute Assessment & Plan: - Lovenox Clinical Quality Measures DVT/VTE Risk/Contraindication: Risk Factor Score Per Nursin RFS Level Per Nursing on Admit: 2=Moderate RADHA ALVAREZ MD Jul 14, 2018 11:29
[2018-07-14 12:00] VITALS: BP 134/74
--- NOTE | 2018-07-14 15:26 | NUR ---
Met with pt in the hallway and walked with her while engaging in rapport building. Pt was hoarse, but openly shared about her recent health challenges, and stated she is walking as much as possible in hopes of keeping up her strength. Offered compassionate presence and active listening. She anticipates discharge sometime next week. No spiritual affiliation shared this visit.
[2018-07-14 16:30] VITALS: BP 145/83
[2018-07-14 20:59] VITALS: BP 128/78
[2018-07-15] VITALS: BP 124/66
[2018-07-15] MEDS: methylPREDNISolone 40 MG/ML (Solu-MEDROL) VIAL IV SCH ×5 (00:50→23:35)
[2018-07-15] MEDS: RT-ALBUTEROL/IPRATROPIUM 3 ML (DUONEB) VIAL IH SCH ×6 (02:07→22:52)
[2018-07-15 04:00] VITALS: BP 106/56
[2018-07-15 04:27] LABS: BASOPHILS % (AUTO) 0 % (0-10); EOSINOPHILS % (AUTO) 0 % (0-10); HEMATOCRIT 44 % (35-52); LYMPHOCYTES # (AUTO) 1.1 X 10^3 (1.0-4.0); LYMPHOCYTES % (AUTO) 6 % (12-44); MEAN CORPUSCULAR HEMOGLOBIN 29 PG (25-34); MEAN CORPUSCULAR HGB CONC 34 G/DL (32-36); MEAN CORPUSCULAR VOLUME 87 FL (80-99); MEAN PLATELET VOLUME 10.2 FL (7.4-10.4); MONOCYTES # (AUTO) 0.6 X 10^3 (0.0-1.0); MONOCYTES % (AUTO) 3 % (0-12); NEUTROPHILS # (AUTO) 17.4 X 10^3 (1.8-7.8); NEUTROPHILS % (AUTO) 91 % (42-75); PLATELET COUNT 243 10^3/uL (130-400); RED CELL DISTRIBUTION WIDTH 13.9 % (10.0-14.5); WHITE BLOOD COUNT 19.2 10^3/uL (4.3-11.0)
--- NOTE | 2018-07-15 07:02 | Pulmonary Progress Note ---
Subjective Time Seen by a Provider: 06:41 Subjective/Events-last exam Still complains of SOB and conversational dyspnea. Sepsis Event Evaluation Height, Weight, BMI Height: 5'4.00" Weight: 220lbs. 4.0oz. 99.407245an; 37.8 BMI Method:Stated Exam Exam Vital Signs Date Time Temp Pulse Resp B/P (MAP) Pulse Ox O2 Delivery O2 Flow Rate FiO2 07/15/18 04:00 97.8 70 21 106/56 (73) 98 Room Air 07/15/18 02:10 97 Room Air 07/15/18 01:00 58 07/15/18 00:00 99.1 59 20 124/66 (85) 96 Room Air 07/14/18 22:21 95 Room Air 07/14/18 20:59 97.0 77 20 128/78 (95) 97 Room Air 07/14/18 20:00 Room Air 07/14/18 19:00 76 07/14/18 18:40 98 Room Air 07/14/18 16:30 97.8 74 20 145/83 (103) 99 Room Air 07/14/18 14:17 96 Room Air 07/14/18 13:00 85 07/14/18 12:00 98.8 87 20 134/74 (94) 98 Room Air 07/14/18 11:08 97 Room Air 07/14/18 08:00 99.5 85 20 126/65 (85) 97 Room Air 07/14/18 08:00 97 Room Air 07/14/18 07:40 84 I & O 07/15/18 07:00 Intake Total 2860 ml Balance 2860 ml Height & Weight Height: 5'4.00" Weight: 220lbs. 4.0oz. 99.272433xj; 37.8 BMI Method:Stated General Appearance: Anxious, Mild Distress, Obese HEENT: PERRL/EOMI, Normal ENT Inspection, Pharynx Normal Neck: Full Range of Motion, Non Tender, Supple Respiratory: Accessory Muscle Use, Decreased Breath Sounds, Respiratory Distress, Wheezing, Other (PT has conversational dyspnea and accessory muscle use. ) Cardiovascular: Regular Rate, Rhythm, No Edema, No Gallop Capillary Refill: Less Than 3 Seconds Gastrointestinal: normal bowel sounds, non tender, soft Extremity: Normal Capillary Refill, Normal Inspection Neurologic/Psychiatric: Alert, Oriented x3 Skin: Normal Color, Warm/Dry Lymphatic: No Adenopathy Results Lab Laboratory Tests 07/14/18 05:35 07/15/18 04:10 Assessment/Plan Assessment/Plan AsthmaAE - failed out pt treatment -Solumedrol -SVNs Persistent conversational dyspnea -Check echocardiogram to screen for pulmonary HTN. Allergic rhinitis -Claritin -Singulair Persistent Coughing -Robitussin AC INÉS GUEVARA DO Jul 15, 2018 07:02
[2018-07-15] MEDS: MONTELUKAST 10 MG (SINGULAIR) TAB PO SCH (07:59)
[2018-07-15] MEDS: LORATADINE (CLARITIN) 10 MG TAB PO SCH (07:59)
[2018-07-15 08:00] VITALS: BP 125/83
[2018-07-15] MEDS: guaiFENesin/CODEINE (ROBITUSSIN AC) 10ML UDC PO PRN (11:20)
[2018-07-15 12:01] VITALS: BP 125/79
--- NOTE | 2018-07-15 12:34 | Progress Note (SOAP) ---
Subjective Subjective/Events-last exam Remains markedly short of breath, but maintaining oxygen on room air. Review of Systems Date Seen by Provider: Jul 15, 2018 Time Seen by Provider: 10:40 Objective Exam Last Set of Vital Signs Vital Signs Date Time Temp Pulse Resp B/P (MAP) Pulse Ox O2 Delivery O2 Flow Rate FiO2 07/15/18 12:01 98.6 79 20 125/79 (94) 98 Room Air Capillary Refill : Less Than 3 Seconds I&O Intake and Output 07/15/18 00:00 Intake Total 2810 ml Balance 2810 ml Intake Oral 2810 ml # Voids 13 # Bowel Movements 3 General: Alert, Mild Distress Lungs: Other (ronchi throughout) Heart: Regular Rate, No Murmurs Neuro: Normal Speech (cannot speak in complete sentences due to shortness of breath) Psych/Mental Status: Mental Status NL Results/Procedures Lab Laboratory Tests 07/15/18 04:10: White Blood Count 19.2H, Red Blood Count 5.10, Hemoglobin 15.0, Hematocrit 44, Mean Corpuscular Volume 87, Mean Corpuscular Hemoglobin 29, Mean Corpuscular Hemoglobin Concent 34, Red Cell Distribution Width 13.9, Platelet Count 243, Mean Platelet Volume 10.2, Neutrophils (%) (Auto) 91H, Lymphocytes (%) (Auto) 6L , Monocytes (%) (Auto) 3, Eosinophils (%) (Auto) 0, Basophils (%) (Auto) 0, Neutrophils # (Auto) 17.4H, Lymphocytes # (Auto) 1.1, Monocytes # (Auto) 0.6, Eosinophils # (Auto) 0.0, Basophils # (Auto) 0.0 Assessment/Plan Assessment/Plan (1) Acute asthma exacerbation Status: Acute Assessment & Plan: - Dr Bowling Managing, MAT protocol, scheduled and PRN A/A nebs, Continue Steroids,will add Mag 2 Grams today 07/12: Tawnya ordered 1 hr breathing treatment, continue steroids, and scheduled treatments 07/13: Discussed with nursing to make sure patient gets scheduled treatments on time 07/14: Continue IV steroids, Scheduled and PRN nebs 07/15- no change, echocardiogram to look for other causes of SOA pending Qualifiers: Qualified Codes: J45.51 - Severe persistent asthma with (acute) exacerbation (2) Hypoxia Status: Resolved (3) DVT prophylaxis Status: Acute Assessment & Plan: - Jessicax Clinical Quality Measures DVT/VTE Risk/Contraindication: Risk Factor Score Per Nursin RFS Level Per Nursing on Admit: 2=Moderate PHOEBE CHRISTY MD Jul 15, 2018 12:34
[2018-07-15 16:00] VITALS: BP 132/83
[2018-07-15 20:00] VITALS: BP 143/83
[2018-07-16 00:19] VITALS: BP 122/74
[2018-07-16] MEDS: RT-ALBUTEROL/IPRATROPIUM 3 ML (DUONEB) VIAL IH SCH ×6 (01:54→21:42)
[2018-07-16 04:10] VITALS: BP 128/78
[2018-07-16] MEDS: methylPREDNISolone 40 MG/ML (Solu-MEDROL) VIAL IV SCH ×4 (06:05→23:39)
--- NOTE | 2018-07-16 06:42 | Pulmonary Progress Note ---
Subjective Time Seen by a Provider: 08:24 Subjective/Events-last exam Still complains of SOB even with conversation. Sepsis Event Evaluation Height, Weight, BMI Height: 5'4.00" Weight: 220lbs. 4.0oz. 99.821010gy; 37.8 BMI Method:Stated Exam Exam Vital Signs Date Time Temp Pulse Resp B/P (MAP) Pulse Ox O2 Delivery O2 Flow Rate FiO2 07/16/18 04:10 97.0 82 18 128/78 (95) 99 Room Air 07/16/18 01:54 97 Room Air 07/16/18 01:00 60 07/16/18 00:19 97.6 82 22 122/74 (90) 98 Room Air 07/15/18 22:52 97 Room Air 07/15/18 20:00 97.8 88 24 143/83 (103) 97 Room Air 07/15/18 20:00 Room Air 07/15/18 19:00 88 07/15/18 18:29 97 Room Air 07/15/18 16:00 97.7 80 22 132/83 (99) 98 Room Air 07/15/18 14:06 97 Room Air 07/15/18 13:00 73 07/15/18 12:01 98.6 79 20 125/79 (94) 98 Room Air 07/15/18 10:33 95 Room Air 07/15/18 08:00 98.4 84 20 125/83 (97) 98 Room Air 07/15/18 08:00 97 Room Air 07/15/18 07:25 98 Room Air 07/15/18 07:00 81 I & O 07/16/18 06:59 Intake Total 3420 ml Balance 3420 ml Height & Weight Height: 5'4.00" Weight: 220lbs. 4.0oz. 99.102313bm; 37.8 BMI Method:Stated General Appearance: Anxious, Mild Distress, Obese HEENT: PERRL/EOMI, Normal ENT Inspection, Pharynx Normal Neck: Full Range of Motion, Non Tender, Supple Respiratory: Accessory Muscle Use, Decreased Breath Sounds, Respiratory Distress, Wheezing, Other (PT has conversational dyspnea and accessory muscle use. ) Cardiovascular: Regular Rate, Rhythm, No Edema, No Gallop Capillary Refill: Less Than 3 Seconds Gastrointestinal: normal bowel sounds, non tender, soft Extremity: Normal Capillary Refill, Normal Inspection Neurologic/Psychiatric: Alert, Oriented x3 Skin: Normal Color, Warm/Dry Lymphatic: No Adenopathy Results Lab Laboratory Tests 07/15/18 04:10 Assessment/Plan Assessment/Plan AsthmaAE - failed out pt treatment -Solumedrol -SVNs Persistent conversational dyspnea -Check echocardiogram to screen for pulmonary HTN. Allergic rhinitis -Claritin -Singulair Persistent Coughing -Robitussin AC INÉS GUEVARA DO Jul 16, 2018 06:42
[2018-07-16 08:00] VITALS: BP 121/67
[2018-07-16] MEDS: LORATADINE (CLARITIN) 10 MG TAB PO SCH (08:18)
[2018-07-16] MEDS: MONTELUKAST 10 MG (SINGULAIR) TAB PO SCH (08:19)
[2018-07-16] MEDS: guaiFENesin/CODEINE (ROBITUSSIN AC) 10ML UDC PO PRN ×2 (08:21→20:37)
[2018-07-16 12:00] VITALS: BP 132/84
--- NOTE | 2018-07-16 14:36 | Progress Note (SOAP) ---
Subjective Subjective/Events-last exam Afebrile, states not coughing as much as long as she doesn't move much. Review of Systems Date Seen by Provider: Jul 16, 2018 Time Seen by Provider: 10:45 Objective Exam Last Set of Vital Signs Vital Signs Date Time Temp Pulse Resp B/P (MAP) Pulse Ox O2 Delivery O2 Flow Rate FiO2 07/16/18 12:00 97.8 91 20 132/84 (100) 98 Room Air Capillary Refill : Less Than 3 Seconds I&O Intake and Output 07/16/18 00:00 Intake Total 3170 ml Balance 3170 ml Intake Oral 3170 ml # Voids 14 # Bowel Movements 2 General: Alert, No Acute Distress Lungs: Clear to Auscultation, Normal Air Movement Heart: Regular Rate, No Murmurs Psych/Mental Status: Mental Status NL Assessment/Plan Assessment/Plan (1) Acute asthma exacerbation Status: Acute Assessment & Plan: - Dr Bowling Managing, MAT protocol, scheduled and PRN A/A nebs, Continue Steroids,will add Mag 2 Grams today 07/12: Tawnya ordered 1 hr breathing treatment, continue steroids, and scheduled treatments 07/13: Discussed with nursing to make sure patient gets scheduled treatments on time 07/14: Continue IV steroids, Scheduled and PRN nebs 07/15- no change, echocardiogram to look for other causes of SOA pending 07/16- continue management per Dr. Bowling Qualifiers: Qualified Codes: J45.51 - Severe persistent asthma with (acute) exacerbation (2) Hypoxia Status: Resolved (3) DVT prophylaxis Status: Acute Assessment & Plan: - Lovenox Clinical Quality Measures DVT/VTE Risk/Contraindication: Risk Factor Score Per Nursin RFS Level Per Nursing on Admit: 2=Moderate PHOEBE CHRISTY MD Jul 16, 2018 14:36
[2018-07-16 16:00] VITALS: BP 136/67
[2018-07-16 20:00] VITALS: BP 138/78
[2018-07-17 00:15] VITALS: BP 130/66
[2018-07-17] MEDS: RT-ALBUTEROL/IPRATROPIUM 3 ML (DUONEB) VIAL IH SCH ×3 (01:44→10:19)
[2018-07-17 04:00] VITALS: BP 128/66
[2018-07-17] MEDS: methylPREDNISolone 40 MG/ML (Solu-MEDROL) VIAL IV SCH (06:27)
[2018-07-17 07:35] VITALS: BP 117/74
[2018-07-17] MEDS: guaiFENesin/CODEINE (ROBITUSSIN AC) 10ML UDC PO PRN (07:38)
[2018-07-17] MEDS: LORATADINE (CLARITIN) 10 MG TAB PO SCH (08:25)
[2018-07-17] MEDS: MONTELUKAST 10 MG (SINGULAIR) TAB PO SCH (08:26)
--- NOTE | 2018-07-17 08:33 | Pulmonary Progress Note ---
Sepsis Event Evaluation Height, Weight, BMI Height: 5'4.00" Weight: 220lbs. 4.0oz. 99.323909hq; 37.8 BMI Method:Stated Exam Exam Vital Signs Date Time Temp Pulse Resp B/P (MAP) Pulse Ox O2 Delivery O2 Flow Rate FiO2 07/17/18 07:35 97.8 106 20 117/74 (88) 98 Room Air 07/17/18 07:00 73 07/17/18 06:42 98 Room Air 07/17/18 04:00 97.0 66 20 128/66 (86) 98 Room Air 07/17/18 01:44 98 Room Air 07/17/18 00:58 55 07/17/18 00:15 96.2 77 18 130/66 (87) 98 Room Air 07/16/18 21:42 97 Room Air 07/16/18 20:00 97.8 87 20 138/78 (98) 97 Room Air 07/16/18 20:00 Room Air 07/16/18 19:00 93 07/16/18 18:28 97 Room Air 07/16/18 16:00 97.9 99 20 136/67 (90) 97 Room Air 07/16/18 14:59 97 Room Air 07/16/18 12:00 97.8 91 20 132/84 (100) 98 Room Air 07/16/18 12:00 64 I & O 07/17/18 07:00 Intake Total 3440 ml Balance 3440 ml Height & Weight Height: 5'4.00" Weight: 220lbs. 4.0oz. 99.918759mf; 37.8 BMI Method:Stated General Appearance: Anxious, Mild Distress, Obese HEENT: PERRL/EOMI, Normal ENT Inspection, Pharynx Normal Neck: Full Range of Motion, Non Tender, Supple Respiratory: Accessory Muscle Use, Decreased Breath Sounds, Respiratory Distress, Wheezing, Other (PT has conversational dyspnea and accessory muscle use. ) Cardiovascular: Regular Rate, Rhythm, No Edema, No Gallop Capillary Refill: Less Than 3 Seconds Gastrointestinal: normal bowel sounds, non tender, soft Extremity: Normal Capillary Refill, Normal Inspection Neurologic/Psychiatric: Alert, Oriented x3 Skin: Normal Color, Warm/Dry Lymphatic: No Adenopathy Assessment/Plan Assessment/Plan AsthmaAE - failed out pt treatment - Improving -Solumedrol -SVNs Pulmonary HTN with Diastolic - grade II dysfunction per echo with EF 70-75% -PT needs out pt PSG. - this is already scheduled. -I will continue to follow as out patient -Once discharged I will f/u with her in 2 wks. -Check Ambulatory desat test. Persistent conversational dyspnea -Check echocardiogram to screen for pulmonary HTN. Allergic rhinitis -Claritin -Singulair Persistent Coughing -Robitussin AC INÉS GUEVARA DO Jul 17, 2018 08:33
[2018-07-17] MEDS ORDERED: HYDR473S34 PO (09:22)
[2018-07-17] MEDS ORDERED: PRED10TA22 PO (09:22)
--- NOTE | 2018-07-17 09:25 | Discharge Summary-Hospitalist ---
Diagnosis/Chief Complaint Date of Admission Jul 13, 2018 at 13:23 Date of Discharge Discharge Date: Jul 17, 2018 Discharge Diagnosis (1) Acute asthma exacerbation Status: Acute (2) Hypoxia Status: Resolved (3) DVT prophylaxis Status: Acute (4) Grade II diastolic dysfunction Status: Acute (5) Pulmonary hypertension Status: Acute Discharge Summary Discharge Physical Exam Allergies: Coded Allergies: No Known Drug Allergies (Unverified , 07/10/18) Vitals & I&Os Vital Signs Date Time Temp Pulse Resp B/P (MAP) Pulse Ox O2 Delivery O2 Flow Rate FiO2 07/17/18 12:47 106 20 117/74 98 Room Air 07/17/18 07:35 97.8 General Appearance: No Apparent Distress, WD/WN Respiratory: Chest Non Tender, Lungs Clear, Normal Breath Sounds, No Accessory Muscle Use, No Respiratory Distress, Decreased Breath Sounds Cardiovascular: Regular Rate, Rhythm, No Edema, No Gallop, No JVD, No Murmur, Normal Peripheral Pulses Neurologic/Psychiatric: Alert, Oriented x3, No Motor/Sensory Deficits, Normal Mood/Affect Hospital Course Was the Problem List Reviewed?: Yes Hospital course: Pt had a lengthy hospital course, she was admitted for five days on med-surg due to severe status asthmaticus. She responded to IV steroids , was placed on long taper dose of steroids at time of discharge and Dr. Bowling was pleased with her progress. She showed stage two diastolic dysfunction and echocardiogram was reviewed and sleep study was scheduled due to pulmonary hypertension diagnosis on echocardiogram. Overall she was feeling good about the situation and was able to be discharged in improved condition with close follow up at [facility]. Labs (last 24 hrs) Patient resulted labs reviewed. Discussion & Recommendations Discharge Planning: <30 minutes discharge planning Discharge Home Medications: Active Scripts Active Prednisone 10 Mg Tab.ds.pk 10 Mg PO DAILY Take 6 tabs(60mg)daily,decrease by 1 tab(10mg)every other day. Hydrocodone-Chlorphen ER Susp (Hydrocodone/Chlorphen P-Stirex) 473 Ml Karolyn.er.12h 5 Ml PO Q12H PRN Reported Proair Hfa (Albuterol Sulfate) 1 Puff Puff 2 Puff IH Q4H PRN Turmeric 500 mg Capsule (Turmeric/Turmeric Root Extract) 1 Each Capsule 500 Mg PO DAILY Breo Ellipta 200-25 Mcg INH (Fluticasone/Vilanterol) 1 Each Blst.w.dev 1 Puff INH DAILY Montelukast Sodium 10 Mg Tablet 10 Mg PO HS Fluticasone Propionate 16 Gm Mandan.susp 1 Mandan NS DAILY Cetirizine HCl 10 Mg Tablet 10 Mg PO DAILY Instructions to patient/family Please see electronic discharge instructions given to patient. Clinical Quality Measures DVT/VTE Risk/Contraindication: Risk Factor Score Per Nursin RFS Level Per Nursing on Admit: 2=Moderate Problem Qualifiers (1) Acute asthma exacerbation: Asthma severity: severe Asthma persistence: persistent Qualified Codes: J45.51 - Severe persistent asthma with (acute) exacerbation STARR GAITAN DO Jul 17, 2018 09:24
[2018-07-17] MEDS ORDERED: predniSONE 10 MG TAB PO SCH (12:00)
[2018-07-17 12:47] VITALS: BP 117/74
--- NOTE | 2018-07-17 12:50 | NUR ---
SERGIO AVILA demonstrates understanding of discharge instructions and accurately returns instructions upon questioning. Copy of Post-Discharge Instructions and Medication Discharge Instructions given to PATIENT. SERGIO AVILA is able to manage continuing needs after discharge. Patients belongings returned to [facility]. Skin dry and intact; no breakdown noted. Patient discharged from 407-1 on at 1245. SERGIO AVILA left floor AMBULATORY, accompanied by STAFF.
--- OUTSIDE RECORDS SUMMARY | 2018-07-19 10:10 | XMS REPORT | Continuity of Care Document ---
Author Organization Unknown Address Unknown Allergies Active Description Code Type Severity Reaction Onset Reported/Identified Relationship to Patient Clinical Status Yes No Known Drug Allergies [id number] Drug Allergy Unknown N/A 07/10/2018 Medications There is no data. Problems Date [...] ALEKS E V73.81 HPV SCREENING 12/03/2013 GLEN SET UP MACHINIST, ALEKS E V74.5 SCREENING EXAMINATION FOR VENEREAL DISEASE 12/03/2013 KYAW CARROLL APRNSIE E V76.10 BREAST CANCER SCREENING 12/03/2013 GLEN SET UP MACHINIST, ALEKS E V76.2 CERVICAL CANCER SCREENING (PAP [...] DO, CARMEN K 626.6 METRORRHAGIA 12/19/2013 HELLWIG SET UP MACHINISTKYAWALEKS E 625.9 UNSPECIFIED SYMPTOM ASSOCIATED WITH FEMALE GENITAL ORGANS 12/19/2013 HELLWIG SET UP MACHINISTSHANTEE E 626.6 METRORRHAGIA 12/19/2013 TRONCOSO DO, CARMEN K 625.9 UNSPECIFIED SYMPTOM ASSOCIATED WITH FEMALE GENITAL ORGANS 12/19/2013 TRONCOSO DO, CARMEN K 626.6 METRORRHAGIA 12/19/2013 TROCNOSO DO, CARMEN K 625.9 UNSPECIFIED SYMPTOM ASSOCIATED [...] PAP - ASCUS 02/28/2014 ALEKS CARROLL E SET UP MACHINIST Ot V76.12 02/28/2014 ALEKS CARROLL E SET UP MACHINIST Ot 620.2 02/28/2014 KYAW CARROLLSIE E SET UP MACHINIST Ot 625.9 02/28/2014 KYAW CARROLLSIE E SET UP MACHINIST Ot 626.6 03/04/2014 TRONCOSO DO CARMEN K 466.0 ACUTE BRONCHITIS 03/12/2014 ALEKS CARROLL E SET UP MACHINIST Ot 620.2 03/12/2014 HELLWIG, ALEKS E SET UP MACHINIST Ot 625.9 03/12/2014 GLEN, ALEKS E SET UP MACHINIST Ot 626.6 03/03/2015 GLEN, ALEKS E SET UP MACHINIST Ot 620.2 03/03/2015 HELKODI, ALEKS E SET UP MACHINIST Ot 625.9 03/03/2015 HELKODI, ALEKS E SET UP MACHINIST Ot 626.6 05/27/2015 HELKODI, ALEKS E SET UP MACHINIST Ot V76.12 05/27/2015 GLEN, ALEKS E SET UP MACHINIST Ot 620.2 05/27/2015 HELKODI, ALEKS E SET UP MACHINIST Ot 625.9 05/27/2015 HELKODI, ALEKS E SET UP MACHINIST Ot 626.6 05/27/2015 GLEN ALEKS E SET UP MACHINIST Ot 620.2 05/27/2015 GLEN ALEKS E SET UP MACHINIST Ot 625.9 05/27/2015 GLEN ALEKS E SET UP MACHINIST Ot 626.6 05/27/2015 GLEN ALEKS E SET UP MACHINIST Ot Z12.31 07/29/2015 GLEN ALEKS E SET UP MACHINIST Ot V76.12 OTH SCREEN MAMMO-MALIGN NEOPLASM OF [place] 07/29/2015 GLEN ALEKS E SET UP MACHINIST Ot 620.2 OVARIAN CYST NEC/NOS 07/29/2015 GLEN ALEKS E SET UP MACHINIST Ot 625.9 FEM GENITAL SYMPTOMS NOS 07/29/2015 GLEN ALEKS E SET UP MACHINIST Ot 626.6 METRORRHAGIA 07/29/2015 KYAW CARROLLSIE E SET UP MACHINIST Ot N94.6 DYSMENORRHEA, UNSPECIFIED 08/04/2015 GLEN ALEKS E SET UP MACHINIST Ot 620.2 OVARIAN CYST NEC/NOS 08/04/2015 GLEN ALEKS E SET UP MACHINIST Ot 625.9 FEM GENITAL SYMPTOMS NOS 08/04/2015 GLEN ALEKS E SET UP MACHINIST Ot 626.6 METRORRHAGIA 08/04/2015 GLEN ALEKS E SET UP MACHINIST Ot Z12.31 ENCNTR SCREEN MAMMOGRAM FOR MALIGNANT NE 08/04/2015 KYAW CARROLLSIE E SET UP MACHINIST Ot N94.6 DYSMENORRHEA, UNSPECIFIED 08/07/2015 ALEKS CARROLL APRN Ot N94.6 DYSMENORRHEA, UNSPECIFIED 08/11/2015 NASH DO, TERRY C Ot K66.0 PERITONEAL ADHESIONS (POSTPROCEDURAL) (P 08/11/2015 NASH DO, TERRY C Ot N92.0 EXCESSIVE [...] DISORDERS OF BLADDER 08/29/2015 TERRY NASH DO Ot N83.8 OTH NONINFLAMMATORY DISORD OF OVARY, FAL 08/29/2015 TERRY NASH DO Ot N92.0 EXCESSIVE AND FREQUENT MENSTRUATION WITH 07/03/2018 HELLWIG, ALESK E SET UP MACHINIST Ot V76.12 OTH SCREEN MAMMO-MALIGN NEOPLASM OF [place] 07/03/2018 HELLWIG, ALEKS E SET UP MACHINIST Ot 620.2 OVARIAN CYST NEC/NOS 07/03/2018 HELLWIG, ALEKS E SET UP MACHINIST Ot 625.9 FEM GENITAL SYMPTOMS NOS 07/03/2018 HELLWIG, ALEKS E SET UP MACHINIST Ot 626.6 METRORRHAGIA 07/03/2018 HELLWIG, ALEKS E SET UP MACHINIST Ot N94.6 DYSMENORRHEA, UNSPECIFIED 07/03/2018 HELLWIG, ALEKS E SET UP MACHINIST Ot V76.12 OTH SCREEN MAMMO-MALIGN NEOPLASM OF [place] 07/03/2018 HELLWIG, ALEKS E SET UP MACHINIST Ot 620.2 OVARIAN CYST NEC/NOS 07/03/2018 HELLWIG, ALEKS E SET UP MACHINIST Ot 625.9 FEM GENITAL SYMPTOMS NOS 07/03/2018 HELLWIG, ALEKS E SET UP MACHINIST Ot 626.6 METRORRHAGIA 07/03/2018 HELLWIG, ALEKS E SET UP MACHINIST Ot N94.6 DYSMENORRHEA, UNSPECIFIED 07/07/2018 EDEL MAGANA SET UP MACHINIST Ot J45.909 UNSPECIFIED ASTHMA, UNCOMPLICATED 07/07/2018 EDEL MAGANA SET UP MACHINIST Ot J45.909 UNSPECIFIED ASTHMA, UNCOMPLICATED 07/09/2018 EDEL MAGANA SET UP MACHINIST Ot J45.909 UNSPECIFIED ASTHMA, UNCOMPLICATED 07/10/2018 JEANCARLOS RILEY, ASHISH Kaplan Ot D64.9 ANEMIA, UNSPECIFIED 07/10/2018 JEANCARLOS RILEY, ASHISH Kaplan Ot F32.9 MAJOR DEPRESSIVE DISORDER, SINGLE EPISOD 07/10/2018 JEANCARLOS RILEY, ASHISH Kaplan Ot F41.9 ANXIETY DISORDER, UNSPECIFIED 07/10/2018 ASHISH ARSHAD MD Ot J45.909 UNSPECIFIED ASTHMA, UNCOMPLICATED 07/10/2018 JEANCARLOS RILEY, ASHISH Kaplan Ot R05 COUGH 07/10/2018 JEANCARLOS RILEY, ASHISH Kaplan Ot Z80.0 FAMILY HISTORY OF MALIGNANT NEOPLASM OF 07/10/2018 JEANCARLOS RILEY, ASHISH Kaplan Ot Z80.1 FAMILY HISTORY OF MALIG NEOPLASM OF TRAC 07/10/2018 JEANCARLOS RILEY, ASHISH Kaplan Ot Z82.49 FAMILY HX OF ISCHEM HEART DIS AND OTH DI Procedures Code Description [place] [address] TRICHOMONAS (IN-HOUSE) 12/03/2013 88121 CULTURE UROGENITAL 12/03/2013 07508 GC/CHLAM PROBE (STATE) 12/03/2013 08308 PAP SMEAR 12/03/2013 Q0091 PAP SMEAR OBTAIN SMEAR 12/03/2013 42371 MAMMOGRAM, SCREENING 12/05/2013 27878 ROUTINE VENIPUNCTURE 12/19/2013 06401 US PELVIC COMPL (REFLEX CPT - 06416) 12/19/2013 64484 CMP 12/19/2013 67987 LIPID PANEL 12/19/2013 11949 TSH 12/19/2013 37151 CBC 12/19/2013 40317 TEST, URINE (IN- HOUSE) 01/23/2014 19478 COLP W/ BX & ECC 01/23/2014 98798 OXIMETRY 03/04/2014 Results Test Result Range CBC - 12/28/16 09:57 WHITE BLOOD CELL COUNT 7.5 Thousand/uL 3.8-10.8 RED BLOOD CELL COUNT 4.85 Million/uL 3.80-5.10 HEMOGLOBIN 14.4 g/dL 11.7-15.5 HEMATOCRIT 42.5 % 35.0-45.0 MCV 87.6 fL 80.0-100.0 MCH 29.7 pg 27.0-33.0 MCHC 33.9 g/dL 32.0-36.0 RDW 13.3 % 11.0-15.0 PLATELET COUNT 236 Thousand/uL 140-400 MPV 11.0 fL 7.5-12.5 ABSOLUTE NEUTROPHILS 5513 cells/uL 2301-2140 ABSOLUTE LYMPHOCYTES 1538 cells/uL 850-3900 ABSOLUTE MONOCYTES [...] blood basophil count (count/volume) 0.0 10*3/uL 0.0-0.1 Automated blood complete blood count (hemogram) panel - 07/10/18 13:15 Blood leukocytes automated count (number/volume) 11.9 10*3/uL 4.3-11.0 Blood erythrocytes automated count (number/volume) 4.74 10*6/uL 4.35-5.85 Venous blood hemoglobin measurement (mass/volume) 14.0 g/dL 11.5-16.0 Blood hematocrit (volume fraction) 41 % 35-52 Automated erythrocyte mean corpuscular volume 87 [foz_us] 80-99 Automated erythrocyte mean corpuscular hemoglobin (mass per erythrocyte) 30 pg 25-34 Automated erythrocyte mean corpuscular hemoglobin concentration measurement ( mass/volume) 34 g/dL 32-36 Automated erythrocyte distribution width ratio 13.8 % 10.0-14.5 Automated blood platelet count (count/volume) 253 10*3/uL 130-400 Automated blood platelet mean volume measurement 10.3 [foz_us] 7.4-10.4 Comprehensive metabolic panel - 07/10/18 13:15 Serum or plasma sodium measurement (moles/volume) 138 mmol/L 135-145 Serum or plasma potassium measurement (moles/volume) 3.8 mmol/L 3.6-5.0 Serum or plasma chloride measurement (moles/volume) 103 mmol/L 98-107 Carbon dioxide 24 mmol/L 21-32 Serum or plasma anion gap determination (moles/volume) 11 mmol/L 5-14 Serum or plasma urea nitrogen measurement (mass/volume) 19 mg/dL 7-18 Serum or plasma creatinine measurement (mass/volume) 0.90 mg/dL 0.60-1.30 Serum or plasma urea nitrogen/creatinine mass ratio 21 NRG Serum or plasma creatinine measurement with calculation of estimated glomerular filtration rate > NRG Serum or plasma glucose measurement (mass/volume) 133 mg/dL 70-105 Serum or plasma calcium measurement (mass/volume) 9.0 mg/dL 8.5-10.1 Serum or plasma total bilirubin measurement (mass/volume) 0.5 mg/dL 0.1-1.0 Serum or plasma alkaline phosphatase measurement (enzymatic activity/volume) 93 U/L 40-136 Serum or plasma aspartate aminotransferase measurement (enzymatic activity/ volume) 11 U/L 5-34 Serum or plasma alanine aminotransferase measurement (enzymatic activity/volume ) 19 U/L 0-55 Serum or plasma protein measurement (mass/volume) 6.8 g/dL 6.4-8.2 Serum or plasma albumin measurement (mass/volume) 4.1 g/dL 3.2-4.5 CALCIUM CORRECTED 8.9 mg/dL 8.5-10.1 Serum or plasma phosphate measurement (mass/volume) - 07/10/18 13:15 Serum or plasma phosphate measurement (mass/volume) 3.2 mg/dL 2.3-4.7 Magnesium - 07/10/18 13:15 Magnesium 2.2 mg/dL 1.8-2.4 Complete blood count (CBC) with automated white blood cell (WBC) differential - 07/12/18 06:10 Blood leukocytes automated count (number/volume) 18.6 10*3/uL 4.3-11.0 Blood erythrocytes automated count (number/volume) 4.60 10*6/uL 4.35-5.85 Venous blood hemoglobin measurement (mass/volume) 13.5 g/dL 11.5-16.0 Blood hematocrit (volume fraction) 41 % 35-52 Automated erythrocyte mean corpuscular volume 88 [foz_us] 80-99 Automated erythrocyte mean corpuscular hemoglobin (mass per erythrocyte) 29 pg 25-34 Automated erythrocyte mean corpuscular hemoglobin concentration measurement ( mass/volume) 33 g/dL 32-36 Automated erythrocyte distribution width ratio 14.0 % 10.0-14.5 Automated blood platelet count (count/volume) 258 10*3/uL 130-400 Automated blood platelet mean volume measurement 10.5 [foz_us] 7.4-10.4 Automated blood neutrophils/100 leukocytes 90 % 42-75 Automated blood lymphocytes/100 leukocytes 7 % 12-44 Blood monocytes/100 leukocytes 3 % 0-12 Automated blood eosinophils/100 leukocytes 0 % 0-10 Automated blood basophils/100 leukocytes 0 % 0-10 Blood neutrophils automated count (number/volume) 16.8 10*3 1.8-7.8 Blood lymphocytes automated count (number/volume) 1.3 10*3 1.0-4.0 Blood monocytes automated count (number/volume) 0.6 10*3 0.0-1.0 Automated eosinophil count 0.0 10*3/uL 0.0-0.3 Automated blood basophil count (count/volume) 0.0 10*3/uL 0.0-0.1 Whole blood basic metabolic panel - 07/12/18 06:10 Serum or plasma sodium measurement (moles/volume) 138 mmol/L 135-145 Serum or plasma potassium measurement (moles/volume) 4.3 mmol/L 3.6-5.0 Serum or plasma chloride measurement (moles/volume) 107 mmol/L 98-107 Carbon dioxide 22 mmol/L 21-32 Serum or plasma anion gap determination (moles/volume) 9 mmol/L 5-14 Serum or plasma urea nitrogen measurement (mass/volume) 18 mg/dL 7-18 Serum or plasma creatinine measurement (mass/volume) 0.79 mg/dL 0.60-1.30 Serum or plasma urea nitrogen/creatinine mass ratio 23 NRG Serum or plasma creatinine measurement with calculation of estimated glomerular filtration rate > NRG Serum or plasma glucose measurement (mass/volume) 144 mg/dL 70-105 Serum or plasma calcium measurement (mass/volume) 8.7 mg/dL 8.5-10.1 Blood manual differential performed detection - 07/12/18 06:10 Manual blood segmented neutrophils/100 leukocytes 95 % NRG Manual blood lymphocytes/100 leukocytes 5 % NRG Blood erythrocyte morphology finding identification NORMAL NRG Serum or plasma phosphate measurement (mass/volume) - 07/12/18 06:10 Serum or plasma phosphate measurement (mass/volume) 3.9 mg/dL 2.3-4.7 Magnesium - 07/12/18 06:10 Magnesium 3.0 mg/dL 1.8-2.4 Complete blood count (CBC) with automated white blood cell (WBC) differential - 07/13/18 05:24 Blood leukocytes automated count (number/volume) 18.5 10*3/uL 4.3-11.0 Blood erythrocytes automated count (number/volume) 4.48 10*6/uL 4.35-5.85 Venous blood hemoglobin measurement (mass/volume) 13.3 g/dL 11.5-16.0 Blood hematocrit (volume fraction) 40 % 35-52 Automated erythrocyte mean corpuscular volume 88 [foz_us] 80-99 Automated erythrocyte mean corpuscular hemoglobin (mass per erythrocyte) 30 pg 25-34 Automated erythrocyte mean corpuscular hemoglobin concentration measurement ( mass/volume) 34 g/dL 32-36 Automated erythrocyte distribution width ratio 14.0 % 10.0-14.5 Automated blood platelet count (count/volume) 233 10*3/uL 130-400 Automated blood platelet mean volume measurement 10.6 [foz_us] 7.4-10.4 Automated blood neutrophils/100 leukocytes 91 % 42-75 Automated blood lymphocytes/100 leukocytes 6 % 12-44 Blood monocytes/100 leukocytes 3 % 0-12 Automated blood eosinophils/100 leukocytes 0 % 0-10 Automated blood basophils/100 leukocytes 0 % 0-10 Blood neutrophils automated count (number/volume) 16.7 10*3 1.8-7.8 Blood lymphocytes automated count (number/volume) 1.1 10*3 1.0-4.0 Blood monocytes automated count (number/volume) 0.6 10*3 0.0-1.0 Automated eosinophil count 0.0 10*3/uL 0.0-0.3 Automated blood basophil count (count/volume) 0.0 10*3/uL 0.0-0.1 Whole blood basic metabolic panel - 07/13/18 05:24 Serum or plasma sodium measurement (moles/volume) 138 mmol/L 135-145 Serum or plasma potassium measurement (moles/volume) 4.3 mmol/L 3.6-5.0 Serum or plasma chloride measurement (moles/volume) 104 mmol/L 98-107 Carbon dioxide 21 mmol/L 21-32 Serum or plasma anion gap determination (moles/volume) 13 mmol/L 5-14 Serum or plasma urea nitrogen measurement (mass/volume) 17 mg/dL 7-18 Serum or plasma creatinine measurement (mass/volume) 0.78 mg/dL 0.60-1.30 Serum or plasma urea nitrogen/creatinine mass ratio 22 NRG Serum or plasma creatinine measurement with calculation of estimated glomerular filtration rate > NRG Serum or plasma glucose measurement (mass/volume) 160 mg/dL 70-105 Serum or plasma calcium measurement (mass/volume) 8.7 mg/dL 8.5-10.1 Complete blood count (CBC) with automated white blood cell (WBC) differential - 07/14/18 05:35 Blood leukocytes automated count (number/volume) 18.4 10*3/uL 4.3-11.0 Blood erythrocytes automated count (number/volume) 4.95 10*6/uL 4.35-5.85 Venous blood hemoglobin measurement (mass/volume) 14.6 g/dL 11.5-16.0 Blood hematocrit (volume fraction) 44 % 35-52 Automated erythrocyte mean corpuscular volume 88 [foz_us] 80-99 Automated erythrocyte mean corpuscular hemoglobin (mass per erythrocyte) 30 pg 25-34 Automated erythrocyte mean corpuscular hemoglobin concentration measurement ( mass/volume) 34 g/dL 32-36 Automated erythrocyte distribution width ratio 14.0 % 10.0-14.5 Automated blood platelet count (count/volume) 246 10*3/uL 130-400 Automated blood platelet mean volume measurement 10.1 [foz_us] 7.4-10.4 Automated blood neutrophils/100 leukocytes 89 % 42-75 Automated blood lymphocytes/100 leukocytes 7 % 12-44 Blood monocytes/100 leukocytes 4 % 0-12 Automated blood eosinophils/100 leukocytes 0 % 0-10 Automated blood basophils/100 leukocytes 0 % 0-10 Blood neutrophils automated count (number/volume) 16.4 10*3 1.8-7.8 Blood lymphocytes automated count (number/volume) 1.3 10*3 1.0-4.0 Blood monocytes automated count (number/volume) 0.7 10*3 0.0-1.0 Automated eosinophil count 0.0 10*3/uL 0.0-0.3 Automated blood basophil count (count/volume) 0.0 10*3/uL 0.0-0.1 Complete blood count (CBC) with automated white blood cell (WBC) differential - 07/15/18 04:10 Blood leukocytes automated count (number/volume) 19.2 10*3/uL 4.3-11.0 Blood erythrocytes automated count (number/volume) 5.10 10*6/uL 4.35-5.85 Venous blood hemoglobin measurement (mass/volume) 15.0 g/dL 11.5-16.0 Blood hematocrit (volume fraction) 44 % 35-52 Automated erythrocyte mean corpuscular volume 87 [foz_us] 80-99 Automated erythrocyte mean corpuscular hemoglobin (mass per erythrocyte) 29 pg 25-34 Automated erythrocyte mean corpuscular hemoglobin concentration measurement ( mass/volume) 34 g/dL 32-36 Automated erythrocyte distribution width ratio 13.9 % 10.0-14.5 Automated blood platelet count (count/volume) 243 10*3/uL 130-400 Automated blood platelet mean volume measurement 10.2 [foz_us] 7.4-10.4 Automated blood neutrophils/100 leukocytes 91 % 42-75 Automated blood lymphocytes/100 leukocytes 6 % 12-44 Blood monocytes/100 leukocytes 3 % 0-12 Automated blood eosinophils/100 leukocytes 0 % 0-10 Automated blood basophils/100 leukocytes 0 % 0-10 Blood neutrophils automated count (number/volume) 17.4 10*3 1.8-7.8 Blood lymphocytes automated count (number/volume) 1.1 10*3 1.0-4.0 Blood monocytes automated count (number/volume) 0.6 10*3 0.0-1.0 Automated eosinophil count 0.0 10*3/uL 0.0-0.3 Automated blood basophil count (count/volume) 0.0 10*3/uL 0.0-0.1 Encounters ACCT No. Visit Date/Time Discharge Status Pt. Type Provider Facility Loc./Unit Complaint [id number] 03/04/2014 10:50:00 03/04/2014 23:59:59 [facility] Outpatient CARMEN TRONCOSO DO [id number] 01/23/2014 13:12:00 01/23/2014 23:59:59 [facility] Outpatient CARMEN TRONCOSO DO [id number] 12/19/2013 09:20:00 12/19/2013 23:59:59 CLS Outpatient CRAMEN TRONCOSO DO [id number] 12/03/2013 15:22:00 12/03/2013 23:59:59 CLS Outpatient ALEKS CARROLL APRN [id number] 12/03/2013 15:22:00 12/03/2013 23:59:59 [place] [id number] 06/14/2018 16:30:00 06/14/2018 23:59:59 CLS Outpatient ALEJANDRO DIAS APRN [facility] [id number] 12/28/2016 10:40:00 Document Registration [id number] 07/13/2018 13:23:00 07/17/2018 12:45:00 DIS Inpatient WESTLEY RILEY, PHOEBE Weir [facility] 4TH ASTHMA EXACERBATION [id number] 07/07/2018 08:11:00 07/07/2018 10:59:00 DIS Outpatient JEANCARLOS RILEY, ASHISH Kaplan [facility] ER COUGH;SOA;WEAKNESS [id number] 07/03/2018 10:04:00 07/03/2018 23:59:59 CLS Outpatient EDEL MAGANA SET UP MACHINIST [facility] RAD DYSPNEA [id number] 07/03/2018 09:55:00 07/03/2018 23:59:59 CLS Preadmit EDEL MAGANA SET UP MACHINIST [facility] SLEEP SLEEP DISORDER [id number] 07/03/2018 09:54:00 07/03/2018 23:59:59 CLS Preadmit EDEL MAGANA SET UP MACHINIST [facility] RT DYSPNEA [id number] 08/19/2015 06:00:00 08/20/2015 16:20:00 DIS Outpatient TERRY NASH DO [facility] SDC MENORRAGIA; ADHESIONS [id number] 08/11/2015 11:28:00 08/11/2015 12:05:00 DIS Outpatient TERRY NASH DO [facility] PREOP MENORRAGIA; ADHESIONS [id number] 05/27/2015 13:47:00 05/27/2015 23:59:59 CLS Outpatient HELLWIG, ALEKS E SET UP MACHINIST [facility] RAD PAINFUL MESTRUAL PERIODS [id number] 03/03/2015 10:27:00 03/03/2015 23:59:59 CLS Outpatient HELLWIG, ALEKS E SET UP MACHINIST [facility] RAD [id number] 12/24/2013 10:29:00 12/24/2013 23:59:59 CLS Outpatient HELLWIG, ALEKS E SET UP MACHINIST [facility] RAD PELVIC PAIN, INCREASED MENSES [id number] 12/24/2013 10:21:00 12/24/2013 23:59:59 CLS Outpatient HELLWIG, ALEKS E SET UP MACHINIST [facility] RAD SCREENING
== END 2018-07-17 12:45 | disposition home or self-care (01) | DRG 203 ==
LOC: EDSTATUS 09:42 → 4TH 12:20 → UNDOADMOB 12:20 → 4TH 12:20 → INTOOBSV 07-13 13:23 → OBSVTOIN 07-13 13:23 → UNDODISIN 07-17 12:45
PROVIDERS: ADMIT Family Medicine; ATTEND Family Medicine
DX: J45.51 Severe persistent asthma with (acute) exacerbation (principal); I27.22 Pulmonary hypertension due to left heart disease; E66.9 Obesity, unspecified; Z68.37 Body mass index [BMI] 37.0-37.9, adult; F41.9 Anxiety disorder, unspecified; F32.9 Major depressive disorder, single episode, unspecified
CPT/HCPCS: 36415; 71045; 80048; 80053; 83735; 84100; 85007; 85025; 85027; 93306; 94640; 94760; 94761

== ENCOUNTER 2018-08-01 05:40 | Outpatient (CLI) | payer OTHER ==
[~2018-08-01] VITALS: Ht 162.6 cm; Wt 99.9 kg
[~2018-08-01 05:40] MED LIST changes: +HYDR473S34 PO; +PRD20T PO; +PRED10TA22 PO; +RT-ALBUINH IH; +TURM500C4 PO
[2018-08-01] MEDS ORDERED: BENZ100C18 PO (14:46)
[2018-08-01] MEDS ORDERED: LEVO5TAB12 PO (14:46)
[2018-08-01] MEDS ORDERED: TIOT18CA2 IH (14:46)
[2018-08-01] MEDS ORDERED: GUAI237L82 PO (14:46)
[2018-08-01] MEDS ORDERED: PANT40TA3 PO (14:46)
== END 2018-08-01 14:49 | disposition home or self-care (01) ==
LOC: PREOP 05:40
PROVIDERS: ATTEND Internal Medicine Critical Care Medicine
DX: Z01.818 Encounter for other preprocedural examination (principal)

== ENCOUNTER 2018-08-03 06:50 | Day surgery (SDC) | payer OTHER ==
[~2018-08-03] VITALS: Ht 162.6 cm; Wt 99.9 kg
[~2018-08-03 06:50] MED LIST changes: +BENZ100C18 PO; +GUAI237L82 PO; +LEVO5TAB12 PO; +PANT40TA3 PO; +TIOT18CA2 IH
[2018-08-03] MEDS ORDERED: NS IV 500 ML 500 ML ONE (07:00)
[2018-08-03] MEDS ORDERED: MIDAZOLAM 2 MG/2 ML (VERSED) VIAL ONE ×4 (07:30)
[2018-08-03] MEDS ORDERED: MIDAZOLAM 2 MG/2 ML (VERSED) VIAL IVP ONE (07:30)
[2018-08-03] MEDS ORDERED: NS IV 500 ML 500 ML IV PRN (07:30)
[2018-08-03] MEDS ORDERED: fentaNYL INJECTION 100 MCG/2 ML AMP IVP ONE (07:30)
[2018-08-03] MEDS ORDERED: fentaNYL INJECTION 100 MCG/2 ML AMP ONE ×2 (07:31)
[2018-08-03 07:42] VITALS: BP 133/91
--- NOTE | 2018-08-03 07:47 | Progress Note-Pre Operative ---
Pre-Operative Progress Note H&P Reviewed The H&P was reviewed, patient examined and no changes noted. Time Seen by Provider: 07:47 Date H&P Reviewed: August 03, 2018 Time H&P Reviewed: 07:47 Pre-Operative Diagnosis: chronic cough INÉS GUEVARA DO August 03, 2018 07:47
--- NOTE | 2018-08-03 07:48 | Pre-Op Note & Conscious Sedat ---
Pre-Operative Progress Note H&P Reviewed The H&P was reviewed, patient examined and no changes noted. Date H&P Reviewed: August 03, 2018 Time H&P Reviewed: 07:48 Conscious Sedation Pre-Proced Time 07:47 ASA Score 3 For ASA 3 and 4: Consider anesthesia and medical clearance. Also, for patients with a history of failed moderate sedation consider anesthesia. Airway Lungs Heart ASA score ASA 1: a normal healthy patient ASA 2: a patient with a mild systemic disease (mid diabetes, controlled hypertension, obesity ASA 3: a patient with a severe systemic disease that limits activity (angina , COPD, prior Myocardial infarction) ASA 4: a patient with an incapacitating disease that is a constant threat to life (CHF, renal failure) ASA 5: a moribund patient not expected to survive 24 hrs. (ruptured aneurysm) ASA 6: a declared brain- patient whose organs are being harvested. For emergent operations, add the letter E after the classification Mallampati Classification Grade 3 Sedation Plan Analgesia, Amnesia, Plan communicated to team members, Discussed options with patient/fam, Discussed risks with patient/fam The patient is an appropriate candidate to undergo the planned procedure, sedation, and anesthesia. The patient immediately re-assessed prior to indication. INÉS GUEVARA DO August 03, 2018 07:48
[2018-08-03] MEDS ORDERED: RT-ALBUTEROL SULF 2.5 MG/3 ML PRE-MIX VIAL ONE (08:43)
[2018-08-03 09:00] VITALS: BP 180/84
--- NOTE | 2018-08-03 09:14 | Pulmonary Procedures ---
Pulmonary Procedures Date of Procedure Date of Service: August 03, 2018 Bronch Bronchoscopy with Fluoroscopy RML bronchoalveolar lavage (BAL), bilateral bronchial washes and, transbronchial brushes. Preop DX Chronic cough Postop DX: same (No endobronchial brushes) Complications: none After informed consent obtained and formal time out pt was sedated using Fentanyl and Versed. Bronchoscope was advanced through the mouth secondary to large swollen nasal turbinates . 1% lidocaine was used to anesthetize vocal cords, epiglottis, halie, and left/right main stem bronchus. An anatomical tour was undertaken down to the segmental bronchi bilaterally. No endobronchial lesions noted. with Fluoroscopy RML bronchoalveolar lavage (BAL), bilateral bronchial washes and, transbronchial brushes were obtained. Pt tolerated procedure well. No complications noted. Stat CXR is pending. INÉS GUEVARA DO August 03, 2018 09:14
[2018-08-03 09:29] LABS: BASOPHILS % (AUTO) 0 % (0-10); EOSINOPHILS # (AUTO) 0.2 10^3/uL (0.0-0.3); EOSINOPHILS % (AUTO) 3 % (0-10); HEMATOCRIT 42 % (35-52); HEMOGLOBIN 13.5 G/DL (11.5-16.0); LYMPHOCYTES # (AUTO) 1.6 X 10^3 (1.0-4.0); LYMPHOCYTES % (AUTO) 22 % (12-44); MEAN CORPUSCULAR HEMOGLOBIN 29 PG (25-34); MEAN CORPUSCULAR HGB CONC 33 G/DL (32-36); MEAN CORPUSCULAR VOLUME 89 FL (80-99); MEAN PLATELET VOLUME 10.3 FL (7.4-10.4); MONOCYTES # (AUTO) 0.4 X 10^3 (0.0-1.0); MONOCYTES % (AUTO) 6 % (0-12); NEUTROPHILS # (AUTO) 5.2 X 10^3 (1.8-7.8); NEUTROPHILS % (AUTO) 70 % (42-75); PLATELET COUNT 166 10^3/uL (130-400); RED CELL DISTRIBUTION WIDTH 14.5 % (10.0-14.5); WHITE BLOOD COUNT 7.5 10^3/uL (4.3-11.0)
--- NOTE | 2018-08-03 09:30 | Diagnostic Imaging Report ---
Indication: Post bronchoscopy Frontal chest obtained at 854 hours a.m. is compared to 07/12/2018 Heart and mediastinal silhouette are normal in appearance. There is no pneumothorax or pleural fluid. There is subtle creased density in the right lung base laterally. The left lung is clear. IMPRESSION: No pneumothorax or pleural fluid following bronchoscopy. Subtle increased density in right lateral base. There is atelectasis versus minimal infiltrate. There is no other abnormal finding. Dictated by: Dictated on workstation # [id number]
[2018-08-03 09:45] VITALS: BP 114/79
--- NOTE | 2018-08-03 09:45 | Diagnostic Imaging Report ---
Indication: Bronchoscopy. Comparison: 07/12/2018 Total fluoroscopy time: 16.1 seconds Total number fluoroscopic images saved: one Findings: Single intraoperative image intensifier view of the right chest was obtained during bronchoscopy. Bronchoscope is noted within the right lower margins of the image. Evaluation for pneumothorax is suboptimal given the fluoroscopic modality. Additionally, please note intervening radiologist was not present during the procedure. Impression: 1. Fluoroscopic guidance provided during bronchoscopy. Dictated by: Dictated on workstation # [id number]
[2018-08-03 09:55] VITALS: BP 114/79
[2018-08-03 13:42] LABS: BF OTHER CELLS 84 %; BODY FLUID APPEARENCE CLEAR; BODY FLUID COLOR COLORLESS; BODY FLUID SOURCE BRONCH LAVAGE; LYMPHOCYTES,BODY FLUID 2 %
[2018-08-04 03:36] LABS: ALTERNARIA MOLD RAST <0.35 kU/L (<0.35); RAGWEED RAST <0.35 kU/L (<0.35)
== END 2018-08-03 09:50 | disposition home or self-care (01) ==
LOC: ENDO 06:50
PROVIDERS: ATTEND Internal Medicine Critical Care Medicine
DX: R05 Cough (principal); J45.901 Unspecified asthma with (acute) exacerbation; G47.10 Hypersomnia, unspecified; J45.50 Severe persistent asthma, uncomplicated
CPT/HCPCS: 36415; 71045; 82785; 85025; 86003; 86038; 86039; 86606; 87015; 87070; 87101; 87116; 87205; 87206; 89051

== ENCOUNTER → 2018-08-28 | Outpatient (CLI) | payer OTHER ==
[~2018-08-28] MED LIST changes: +RT-ALBUTEROL SULF 2.5 MG/3 ML PRE-MIX VIAL INH ONE; +RT-ALBUTEROL SULF 2.5 MG/3 ML PRE-MIX VIAL ONE
== END ==
LOC: RT 12:06
PROVIDERS: ATTEND Nurse Practitioner Family
DX: R06.00 Dyspnea, unspecified (principal); J45.909 Unspecified asthma, uncomplicated; R06.89 Other abnormalities of breathing; R05 Cough
CPT/HCPCS: 94060; 94726; 94729

== ENCOUNTER → 2018-12-12 | Outpatient (CLI) | payer OTHER ==
[~2018-12-12] MED LIST changes: -DULO30CA48 PO; +DULO30CA49 PO; +HOLD METFORMIN - RECEIVED CONTRAST 20 ML VIAL IV SCH; +IOHEXOL 350 MG/ML 100 ML (OMNIPAQUE 350) VIAL IV ONE; +NS 100 ML (IVPB) BAG IV ONE; -RT-ALBUTEROL SULF 2.5 MG/3 ML PRE-MIX VIAL INH ONE; -RT-ALBUTEROL SULF 2.5 MG/3 ML PRE-MIX VIAL ONE
--- NOTE | 2018-12-12 10:42 | Diagnostic Imaging Report ---
CLINICAL INDICATION: Patient with cough for 25 years and there is loss of voice in the last two months. EXAM: Axial CT scan of the neck soft tissue performed with 75 cc of Omnipaque 350 IV contrast with sagittal and coronal reformatted images. COMPARISON: None. FINDINGS: There is note of significant bony sclerosis of the right arytenoid cartilage. There is minimal prominence of the right aryepiglottic fold and right posterior supraglottic larynx region in relation to the left side. Otherwise, there is no measurable mass. The vocal cords are grossly symmetric. The remainder of the nasopharynx, oropharynx, hypopharynx, and laryngeal soft tissue structures show no major abnormality. There is no neck lymphadenopathy. The salivary glands and thyroid gland is unremarkable. The tongue, oral cavity, sublingual and submandibular region is unremarkable as visualized. The neck vascular structures show no significant abnormality. Visualized upper lung johnson are clear. There is cervical spine degenerative disease with suggestion of posterior disc bulges at the C3 through C7 levels. Limited visualization of intracranial structures are unremarkable. The orbits, globes, paranasal sinuses and mastoid air cells are unremarkable as visualized. IMPRESSION: 1: There is bony sclerosis of the right arytenoid cartilage. There is minimal soft tissue prominence of the right aryepiglottic fold and right posterior supraglottic larynx region. There is no measurable mass seen. ENT consultation with direct visualization is suggested to evaluate for possible mass in this region versus non-masslike asymmetric soft tissue. 2: There is no neck lymphadenopathy. 3: Cervical spine degenerative disease. 4: The remainder of this exam is unremarkable for patient's age. Dictated by: Dictated on workstation # [id number]
== END ==
LOC: RAD 08:50
PROVIDERS: ATTEND Otolaryngology Otolaryngology/Facial Plastic Surgery
DX: M94.8X8 Other specified disorders of cartilage, other site (principal); M47.812 Spondylosis without myelopathy or radiculopathy, cervical region; R49.1 Aphonia; R05 Cough
CPT/HCPCS: 70491

== ENCOUNTER 2019-01-07 20:13 | Emergency (ER) | payer OTHER ==
[~2019-01-07] VITALS: Ht 160 cm; Wt 97.9 kg
[~2019-01-07 20:13] MED LIST changes: -HOLD METFORMIN - RECEIVED CONTRAST 20 ML VIAL IV SCH; -IOHEXOL 350 MG/ML 100 ML (OMNIPAQUE 350) VIAL IV ONE; -NS 100 ML (IVPB) BAG IV ONE
[2019-01-07] MEDS ORDERED: TETANUS,DIPTH,PERTUSS P/F (BOOSTRIX) 0.5 ML VIAL IM ONE (22:15)
[2019-01-07] MEDS ORDERED: LIDOCAINE 1% INJ 20 ML 20 ML VIAL INJ ONE (22:15)
--- NOTE | 2019-01-07 23:10 | ED Integumentary General ---
General Chief Complaint: Laceration Stated Complaint: LEFT HAND LACERATION Nursing Triage Note: laceration to the left hand Source: patient, family (daughter) Exam Limitations: no limitations History of Present Illness Date Seen by Provider: Jan 07, 2019 Time Seen by Provider: 22:00 Initial Comments 48-year-old female patient presents with complaints of a laceration to the left hand that occurred at noon today. Patient reports cutting hand on a can lid. Patient states the wound keeps rebleeding. Location Injury Occurred: home Timing/Duration: other (1200) Location: hands Modifying Factors: worse with other (bleeding worse with movement) Allergies and Home Medications Allergies Coded Allergies: No Known Drug Allergies (Unverified , 08/01/18) Home Medications Albuterol Sulfate 1 Puff Puff, 2 PUFF IH Q4H PRN for SHORTNESS OF BREATH, (Reported) Benzonatate 100 Mg Capsule, 100 MG PO BID, (Reported) Fluticasone Propionate 16 Gm Buhl.susp, 1 SPRAY NS DAILY, (Reported) Fluticasone/Vilanterol 1 Each Blst.w.dev, 1 PUFF INH DAILY, (Reported) Guaifenesin/Dextromethorphan 237 Ml Liquid, 237 ML PO PRN, (Reported) Hydrocodone/Chlorphen P-Stirex 473 Ml Karolyn.er.12h, 5 ML PO Q12H PRN for COUGH Prescribed by: STARR GAITAN on 07/17/18 0922 Levocetirizine Dihydrochloride 5 Mg Tablet, 5 MG PO HS, (Reported) Montelukast Sodium 10 Mg Tablet, 10 MG PO HS, (Reported) Pantoprazole Sodium 40 Mg Tablet.dr, 40 MG PO DAILY, (Reported) Tiotropium [place] 1 Inh Aerp, 1 INH IH DAILY, (Reported) Turmeric/Turmeric Root Extract 1 Each Capsule, 500 MG PO DAILY, (Reported) Patient Home Medication List Home Medication List Reviewed: Yes Review of Systems Review of Systems Constitutional: no symptoms reported Respiratory: no symptoms reported Cardiovascular: no symptoms reported Musculoskeletal: no symptoms reported Skin: see HPI Psychiatric/Neurological: Denies Numbness, Denies Paresthesia, Denies Tingling, Denies Weakness All Other Systems Reviewed Negative Unless Noted: Yes (Negative excepted noted.) Past Fjstdmt-Lnmmub-Oijzhw Hx Past Med/Social Hx: Reviewed Nursing Past Med/Soc Hx Patient Social History 2nd Hand Smoke Exposure: No Recent Foreign Travel: No Contact w/Someone Who Travel: No Recent Hopitalizations: Yes (JUNE 2018-) Immunizations Up To Date Tetanus Booster (TDap): Unknown Seasonal Allergies Seasonal Allergies: Yes Past Medical History Surgeries: Yes (c/s x2, ) Respiratory: Yes Asthma, Chronic Bronchitis Currently Using CPAP: No Currently Using BIPAP: No Cardiac: No Neurological: No Reproductive Disorders: Yes (menorrhagia) Female Reproductive Disorders: 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 Sexually Transmitted Disease: No HIV/AIDS: No Genitourinary: Yes (incont ) Gastrointestinal: No Musculoskeletal: No Endocrine: No HEENT: No Loss of Vision: Denies Hearing Impairment: Denies Cancer: No Psychosocial: Yes Anxiety, Depression Integumentary: No Blood Disorders: No (anemia at times) Adverse Reaction/Blood Tranf: No (HAS HAD BLOOD WITH NO REACTION) Family Medical History Reviewed Nursing Family Hx Cardiovascular disease grandparents Diabetes mellitus 19 FATHER grandparents FH: cancer 19 MOTHER (eye then went to liver) grandparents (liver, lung) Hypertension grandparents Myocardial infarction grandparents Psychosocial problem G8 SISTER No Pertinent Family Hx Physical Exam Vital Signs Capillary Refill : General Appearance: WD/WN, no apparent distress Cardiovascular: normal peripheral pulses, regular rate, rhythm, no edema, no mu rmur Respiratory: lungs clear, normal breath sounds, no respiratory distress, no accessory muscle use Extremities: normal range of motion, non-tender, normal capillary refill; No swelling; other (2 cm linear laceration to the left 1st web space with an active arterial bleed noted.) Neurologic/Psychiatric: no motor/sensory deficits, alert, normal mood/affect, oriented x 3 Skin: normal color, warm/dry, other (2 cm linear laceration to the left 1st web space with an active arterial bleed noted.) Skin Problem Location: other (1st web space of the left hand) Skin Problem Character: other (2 cm linear laceration to the left 1st web space with an active arterial bleed noted.) Procedures/Interventions Wound Location: Upper Extremities (left hand 1st web space) Wound Length (cm): 2 Wound's Depth, Shape: superficial, linear Wound Explored: clean Irrigated w/ Saline (ccs): 50 Betadine Prep?: Yes (wound scrubbed with chlorhexidine and sterile saline.) Anesthesia: 1% Lidocaine Volume Anesthetic (ccs): 2 Suture: Ethlion (4-0 Ethilon used to reapproximate skin edges), Vicryl (3-0 vicryl used to obtain hemostasis) Number of Sutures: 3 Number Deep Layer Sutures: 1 (one [id number] suture placed in the wound bed to obtain hemostasis) Sterile Dressing Applied?: Yes Progress Blood loss minimal. Patient tolerated the procedure well. Progress/Results/Core Measures Results/Orders My Orders Orders - BECCA GASTON Lidocaine 1% Inj 20 Ml (Xylocaine 1% Inj (01/07/19 22:15) Dipht,Pertuss(Acell),Tet Adult (Boostrix (01/07/19 22:15) Medications Given in ED Current Medications Medications Dose Ordered Sig/[place] Route Start Time Stop Time Status Last Admin Dose Admin Diphtheria/ Tetanus/Acell Pertussis 0.5 ml ONCE ONCE IM 01/07/19 22:15 01/07/19 22:16 DC 01/07/19 22:36 0.5 ML Lidocaine HCl 20 ml ONCE ONCE INJ 01/07/19 22:15 01/07/19 22:16 DC 01/07/19 22:39 20 ML Departure Communication (Admissions) Patient seen, evaluated, and wound repair performed. Patient given a tetanus booster in the emergency department. Plan for discharge to home. Impression Primary Impression: Laceration of hand, left Qualified Codes: S61.412A - Laceration without foreign body of left hand, initial encounter Disposition: 01 HOME, SELF-CARE Condition: Improved Departure-Patient Inst. Decision time for Depature: 23:09 Referrals: AMARJIT TEJADA MD (PCP) Primary Care Physician Patient Instructions: Laceration Repair With Stitches (DC) Add. Discharge Instructions: All discharge instructions reviewed with patient and/or family. Voiced understanding. Tylenol Extra Strength [id number] as directed for pain. Ibuprofen 800 mg by mouth every 8 hours as needed for pain. Tomorrow morning you may remove the brace, shower with antibacterial soap, apply triple antibiotic ointment twice daily for 3 days and cover with a Band-Aid. Wear the splint as instructed. Return to the emergency department in 10 days for suture removal. Follow-up with his family practitioner if needed. Return to the emergency department for worsened symptoms, redness, fever, drainage, or any other concerns. BECCA GASTON Jan 07, 2019 23:10
[2019-01-07 23:19] VITALS: BP 119/76
== END 2019-01-07 23:20 | disposition home or self-care (01) ==
LOC: EDUNIT# 20:13 → ER 20:14
DX: S61.412A Laceration without foreign body of left hand, initial encounter (principal); J45.909 Unspecified asthma, uncomplicated; F41.9 Anxiety disorder, unspecified; F32.9 Major depressive disorder, single episode, unspecified; D64.9 Anemia, unspecified; Z90.710 Acquired absence of both cervix and uterus; Z23 Encounter for immunization; Z79.51 Long term (current) use of inhaled steroids; Z82.49 Family history of ischemic heart disease and other diseases of the circulatory system; Z80.8 Family history of malignant neoplasm of other organs or systems; Z80.0 Family history of malignant neoplasm of digestive organs; Z80.1 Family history of malignant neoplasm of trachea, bronchus and lung; W26.8XXA Contact with other sharp object(s), not elsewhere classified, initial encounter
CPT/HCPCS: 12041; 90715

== ENCOUNTER 2019-01-16 10:30 | Outpatient (RCR) | payer OTHER ==
[~2019-01-16 10:30] MED LIST changes: -CLON0.5T13 PO; +CLON0.5T4 PO; -HYDR473S34 PO; +HYDR473S61 PO
== END 2019-01-16 11:05 | disposition home or self-care (01) ==
PROVIDERS: ATTEND Otolaryngology Otolaryngology/Facial Plastic Surgery
DX: R49.0 Dysphonia (principal); Z87.09 Personal history of other diseases of the respiratory system

== ENCOUNTER 2019-01-17 16:30 | Emergency (ER) | payer OTHER ==
[~2019-01-17] VITALS: Ht 162 cm; Wt 98.0 kg
[~2019-01-17 16:30] MED LIST changes: +CLON0.5T13 PO; -CLON0.5T4 PO; +HYDR473S34 PO; -HYDR473S61 PO
[2019-01-17 16:45] VITALS: BP 119/82
== END 2019-01-17 16:45 | disposition home or self-care (01) ==
LOC: EDUNIT# 16:30 → ER 16:31
DX: S61.412D Laceration without foreign body of left hand, subsequent encounter (principal); X58.XXXD Exposure to other specified factors, subsequent encounter